=== PATIENT | female | born 1940 | race Caucasian/White ===

== ENCOUNTER 2019-01-28 07:02 | Inpatient (IN) | payer MEDICARE, BC ==
--- NOTE | 2019-01-28 07:57 | ED ---
General Adult HPI - General Chief complaint: Back Pain/Injury Stated complaint: Back injury Time Seen by Provider: 01/28/19 07:08 Source: patient, EMS, RN notes reviewed, old records reviewed (Reviewed report from [facility] including progress note and radiology results and lab results.) Mode of arrival: EMS Limitations: no limitations - History of Present Illness Initial comments: Patient is a pleasant 70-year-old female presenting to the emergency department as a transfer from [facility]. Patient states she did have a fall l ast night. Patient landed on her back. Patient denies any head injury. Patient denies syncope or loss of consciousness. Patient complains of continued lower back discomfort. Patient states it is not as bad as was previously. Patient states earlier she was unable to get up on her own. Patient denies any incontinence or retention of bowel or bladder. Patient denies any leg weakness. Patient denies any area of injury other than her back. Patient states she does not feel short of breath. Review of reports from [facility] did have some concern for CHF on chest x-ray as well as BNP elevated. - Related Data Home Medications Medication Instructions Recorded Confirmed ALPRAZolam [Xanax] 0.5 mg PO DAILY PRN 06/28/17 01/28/19 Amiodarone [Cordarone] 100 mg PO MOWEFR 06/28/17 01/28/19 Ondansetron HCl [Zofran] 8 mg PO Q8HR PRN 06/28/17 01/28/19 Potassium Chloride [K-Tab ER] 10 meq PO BID 06/28/17 01/28/19 Spironolactone [Aldactone] 12.5 mg PO DAILY 06/28/17 01/28/19 Sertraline HCl [Zoloft] 100 mg PO HS 06/29/17 01/28/19 Sildenafil Citrate [Sildenafil] 20 mg PO BID 06/29/17 01/28/19 Allopurinol [Zyloprim] 100 mg PO DAILY 01/28/19 01/28/19 Atenolol [Tenormin] 50 mg PO DAILY 01/28/19 01/28/19 Folic Acid 1 mg PO DAILY 01/28/19 01/28/19 Previous Rx's Medication Instructions Recorded Furosemide [Lasix] 40 mg PO DAILY #0 06/30/17 Allergies Allergy/AdvReac Type Severity Reaction Status Date / Time Iodinated Contrast- Oral and Allergy Severe Anaphylaxis Verified 01/28/19 08:15 IV Dye Review of Systems ROS Statement: Those systems with pertinent positive or pertinent negative responses have been documented in the HPI. ROS Other: All systems not noted in ROS Statement are negative. Constitutional: Denies: fever Eyes: Denies: eye pain ENT: Denies: ear pain Respiratory: Denies: cough Cardiovascular: Denies: chest pain Endocrine: Denies: fatigue Gastrointestinal: Denies: abdominal pain Genitourinary: Denies: dysuria Musculoskeletal: Reports: as per HPI, back pain Skin: Denies: rash Neurological: Denies: headache, weakness Past Medical History Past Medical History: Atrial Fibrillation, Heart Failure, Deep Vein Thrombosis (DVT), GERD/Reflux, Hypertension, Osteoarthritis (OA), Syncope Additional Past Medical History / Comment(s): ANEMIA,BLOOD TRANSFUSIONS"CONTRACTED HEP C THRU TRANSFUSION-TX AND CURED". PAST CATARACTS.DEPRESSION MAINTAINED BY MEDS.[place], THALLASEMIA, PUL HYPERTENSION, CONSTIPATED X4 DAYS "TOOK 4 STOOL SOFTENERS AND SUPPOSITORY TODAY AND ONLY WENT A SCANT AMT", DIVERTICULTITS. DOG BITE MONTH AGO(PT'S OWN DOG" WAS ON ABX. History of Any Multi-Drug Resistant Organisms: None Reported Past Surgical History: Cholecystectomy, Hysterectomy Additional Past Surgical History / Comment(s): SPLENECTOMY, VARICOSE VEIN SX TAWANNA LEGS, TAWANNA KNEE REPLACMENTS, CATARACTS Past Anesthesia/Blood Transfusion Reactions: Previous Problems w/ Anesthesia Additional Past Anesthesia/Blood Transfusion Reaction / Comment(s): AGE 26 RECEIVED TO MUCH AND IT TOOK LONGER TO WAKE UP. SEVERAL BLOOD TRANSFUSIONS IN PAST. Past Psychological History: Depression Smoking Status: Never smoker - Past Family History Mother Family Medical History: Cancer Additional Family Medical History / Comment(s): COLON CANCER Father Additional Family Medical History / Comment(s): IN MVA(ALCOHOL RELATED) General Exam Limitations: no limitations General appearance: alert, in no apparent distress Head exam: Present: atraumatic Eye exam: Present: normal appearance, PERRL ENT exam: Present: normal oropharynx Neck exam: Present: normal inspection Respiratory exam: Present: normal lung sounds bilaterally Cardiovascular Exam: Present: irregular rhythm Expanded Peripheral pulses: 2+: Dorsalis Pedis (R), Dorsalis Pedis (L) GI/Abdominal exam: Present: soft. Absent: tenderness Extremities exam: Present: normal inspection Back exam: Present: normal inspection. Absent: tenderness, vertebral tenderness Neurological exam: Present: alert, CN II-XII intact. Absent: motor sensory deficit Expanded Motor strength exam: RUE: 5, LUE: 5, RLE: 5, LLE: 5 Eye Response: (4) open spontaneously Motor Response: (6) obeys commands Verbal Response: (5) oriented Psychiatric exam: Present: normal affect, normal mood Skin exam: Present: normal color Course Vital Signs 01/28/19 01/28/19 07:03 08:04 Temperature 97.7 F Pulse Rate 89 76 Respiratory 16 16 Rate Blood Pressure 109/62 119/70 O2 Sat by Pulse 94 L 96 Oximetry Medical Decision Making - Medical Decision Making Case was discussed with Dr. Calloway covering with orthopedics. He is read CT report including concern for T12 compression fracture as well as mild paravertebral hemorrhage. He states patient can be admitted here and to place a consult and for Dr. Cordova. Patient is updated regarding plan. Dr. Overton has been paged for admission for Dr. Calles. Disposition Clinical Impression: T12 compression fracture, CHF (congestive heart failure) Disposition: ADMITTED IP TO THIS HOSP Is patient prescribed a controlled substance at d/c from ED?: No Referrals: Donovan Calles MD [Primary Care Provider] - 1-2 days Decision Time: 08:25
[2019-01-28] MEDS ORDERED: FUROSEMIDE 10 MG/ML 4 ML VIAL IV SCH (09:00)
[2019-01-28] MEDS: MORPHINE SULFATE 4 MG/ML SYRINGE IVP PRN (12:43)
[2019-01-28] MEDS: NITROGLYCERIN OINT 1 INCH/GM PACKET TOPICAL SCH ×2 (12:47)
--- NOTE | 2019-01-28 12:51 | P.CNOR ---
History of Present Illness - [facility] Consult date: 01/28/19 Requesting physician: Lobito Valencia Consult reason: fracture (T6 and T12 compression fracture deformities), low back pain, back pain (Thoracic back pain), other (Status post fall) History of present illness: Patient very pleasant 78-year-old female who is seen and examined at the bedside for further evaluation for thoracic back pain. Patient sustained a fall yesterday landing on her buttocks. Since that time she has been experiencing mid and lower thoracic pain and also lower lumbar pain. She was seen at [facility]. CT imaging of her thoracic spine and pelvis was taken at that time. She did not have any imaging specifically for her lumbar spine. At the bedside she is resting comfortably. She has has increased back pain with any movements of her spine. She denies any pain at the hips or bilateral lower extremities. She denies a lower extremity radiculopathy. She does feel more unsteady on her feet lately but is unsure why. She denies having any previous fractures of her spine. Following reviewing of imaging at [place], she was transferred to [facility] for further evaluation. Patient states she lives at home with her and is planning to be discharged home at the time of discharge. She has a past medical history which includes atrial fibrillation, heart failure, hypertension, syncope and DVT. Past Medical History Past Medical History: Atrial Fibrillation, Heart Failure, Deep Vein Thrombosis (DVT), GERD/Reflux, Hypertension, Osteoarthritis (OA), Syncope Additional Past Medical History / Comment(s): ANEMIA,BLOOD TRANSFUSIONS"CONTRACTED HEP C THRU TRANSFUSION-TX AND CURED". PAST CATARACTS.DEPRESSION MAINTAINED BY MEDS.PILOT STATION, THALLASEMIA, PUL HYPERTENSION, CONSTIPATED X4 DAYS "TOOK 4 STOOL SOFTENERS AND SUPPOSITORY TODAY AND ONLY WENT A SCANT AMT", DIVERTICULTITS. DOG BITE MONTH AGO(PT'S OWN DOG" WAS ON ABX. History of Any Multi-Drug Resistant Organisms: None Reported Past Surgical History: Cholecystectomy, Hysterectomy Additional Past Surgical History / Comment(s): SPLENECTOMY, VARICOSE VEIN SX TAWANNA LEGS, TAWANNA KNEE REPLACMENTS, CATARACTS Past Anesthesia/Blood Transfusion Reactions: Previous Problems w/ Anesthesia Additional Past Anesthesia/Blood Transfusion Reaction / Comm: AGE 26 RECEIVED TO MUCH AND IT TOOK LONGER TO WAKE UP. SEVERAL BLOOD TRANSFUSIONS IN PAST. Past Psychological History: Depression Smoking Status: Never smoker - Past Family History Mother Family Medical History: Cancer Additional Family Medical History / Comment(s): COLON CANCER Father Additional Family Medical History / Comment(s): IN MVA(ALCOHOL RELATED) Medications and Allergies Home Medications Medication Instructions Recorded Confirmed Type ALPRAZolam [Xanax] 0.5 mg PO DAILY PRN 06/28/17 01/28/19 History Amiodarone [Cordarone] 100 mg PO MOWEFR 06/28/17 01/28/19 History Ondansetron HCl [Zofran] 8 mg PO Q8HR PRN 06/28/17 01/28/19 History Potassium Chloride [K-Tab ER] 10 meq PO BID 06/28/17 01/28/19 History Spironolactone [Aldactone] 12.5 mg PO DAILY 06/28/17 01/28/19 History Sertraline HCl [Zoloft] 100 mg PO HS 06/29/17 01/28/19 History Sildenafil Citrate [Sildenafil] 20 mg PO BID 06/29/17 01/28/19 History Furosemide [Lasix] 40 mg PO DAILY #0 06/30/17 01/28/19 Rx Allopurinol [Zyloprim] 100 mg PO DAILY 01/28/19 01/28/19 History Atenolol [Tenormin] 50 mg PO DAILY 01/28/19 01/28/19 History Folic Acid 1 mg PO DAILY 01/28/19 01/28/19 History Allergies Allergy/AdvReac Type Severity Reaction Status Date / Time Iodinated Contrast- Oral and Allergy Severe Anaphylaxis Verified 01/28/19 08:15 IV Dye Physical Examination Physical exam: Patient is awake, alert, and oriented 3 Vital signs stable Good chest excursion with deep inspiration and expiration Examination of thoracic and lumbar spine reveals skin is intact with no abrasions, lacerations, or bruises; no erythema, purulence or signs of infection Pain with palpation along the midline of the mid upper thoracic spine, lower thoracic spine, and lower lumbar spine Dorsiflexion, plantarflexion, and extensor hallucis longus positive sustained bilaterally Lower extremity strength positive sustained throughout range of motion but generally weaker Patellar reflex 1+ bilaterally No lower extremity hyperreflexia bilaterally Straight leg test negative bilateral lower extremities No signs or symptoms of DVT; no calf pain No pain with internal and external rotation of the hips bilaterally Neurovascularly intact Results Pertinent studies: CT of the thoracic spine taken outside facility at [facility] which imaging is available but I was unable to see documentation: T6 superior endplate compression fracture deformity of approximately 5% to 10% height loss; T12 inferior endplate compression fracture deformity with approximately 15% to 20% height loss with evidence of fracture line through the anterior half of the vertebral body; overall alignment appears to be adequately maintained CT of the pelvis taken at an outside facility at [facility] in which imaging is available but I was unable to see documentation: No obvious sign of fracture or dislocation within the pelvis; osteoarthritis of bilateral hip joint spaces; sacroiliac joint space. His be adequately maintained; L4-5 and L5-S1 degenerative disc disease Assessment and Plan Assessment: Assessment: Acute thoracic and lumbar back pain Acute traumatic T6 and T12 compression fracture deformities Status post fall L4-5 and L5-S1 degenerative disc disease Osteoarthritic bilateral hip joint spacing Unsteadiness in gait History of atrial fibrillation, heart failure, hypertension, syncope and DVT (1) Traumatic compression fracture of T6 vertebra Current Visit: Yes Status: Acute Code(s): S22.050A - WEDGE COMPRESSION FRACTURE OF T5-T6 VERTEBRA, INIT SNOMED Code(s): 686769343 (2) Traumatic compression fracture of T12 thoracic vertebra Current Visit: Yes Status: Acute Code(s): S22.080A - WEDGE COMPRESSION FRACTURE OF T11-T12 VERTEBRA, INIT SNOMED Code(s): 254114193 (3) Thoracic back pain Current Visit: Yes Status: Acute Code(s): M54.6 - PAIN IN THORACIC SPINE SNOMED Code(s): 535262872 (4) Lumbar pain Current Visit: Yes Status: Acute Code(s): M54.5 - LOW BACK PAIN SNOMED Code(s): 184995733 (5) DJD (degenerative joint disease), lumbosacral Current Visit: Yes Status: Acute Code(s): M51.37 - OTHER INTERVERTEBRAL DISC DEGENERATION, LUMBOSACRAL REGION SNOMED Code(s): 35023702 (6) Lumbar degenerative disc disease Current Visit: Yes Status: Acute Code(s): M51.36 - OTHER INTERVERTEBRAL DISC DEGENERATION, LUMBAR REGION SNOMED Code(s): 24440417 (7) Osteoarthritis of hips, bilateral Current Visit: Yes Status: Acute Code(s): M16.0 - BILATERAL PRIMARY OSTEOARTHRITIS OF HIP SNOMED Code(s): 348098394030920 (8) History of atrial fibrillation Current Visit: Yes Status: Acute Code(s): Z86.79 - PERSONAL HISTORY OF OTHER DISEASES OF THE CIRCULATORY SYSTEM SNOMED Code(s): 869065943 (9) History of hypertension Current Visit: Yes Status: Acute Code(s): Z86.79 - PERSONAL HISTORY OF OTHER DISEASES OF THE CIRCULATORY SYSTEM SNOMED Code(s): 599867911 (10) History of syncope Current Visit: Yes Status: Acute Code(s): Z87.898 - PERSONAL HISTORY OF OTHER SPECIFIED CONDITIONS SNOMED Code(s): 242129728715613 (11) History of DVT (deep vein thrombosis) Current Visit: Yes Status: Acute Code(s): Z86.718 - PERSONAL HISTORY OF OTHER VENOUS THROMBOSIS AND EMBOLISM SNOMED Code(s): 031018635 (12) CHF (congestive heart failure) Current Visit: Yes Status: Acute Code(s): I50.9 - HEART FAILURE, UNSPECIFIED SNOMED Code(s): 23448845 Plan: Plan: 1. After reviewing of imaging, physical examination the patient, and further discussion with the patient, will currently planned to continue with conservative treatment at this time. At this time we'll plan for bracing. A prescription has been written and provided to case management for a Spinomed TLSO brace for her compression fracture deformities at T6 and T12. Once this brace is delivered and fitted appropriately, patient should wear this brace while sitting upright at greater than 45, during increase activities, during ambulation. Brace does not have to or while lying in bed or while bathing. Following fitting of this brace, patient is clear for discharge from an orthopedic spine standpoint. Following discharge, patient may follow-up with Ezekiel Dorantes PA-C or Dr. Gabriel Cordova at [facility]. We will also plan to obtain x-rays of the lumbosacral spine for her acute low back pain status post fall. We discussed if she does have evidence of an acute compression fracture deformity at her lumbar spine the prescribed Spinomed TLSO brace will cover this fracture as well as her currently diagnosed T6 and T12 fractures. We will follow up following her lumbar x-rays discuss her imaging results. 2. Continue pain control with medication as prescribed; patient has not been prescribed any oral medications. We'll plan to add tramadol 50 mg 1-2 tabs every 6 hours as needed for pain. 3. Patient will continue to be seen by medicine for her other medical diagnoses 4. Patient currently waiting for consultation with cardiology 5. Patient will be discussed in detail with Dr. Gabriel Cordova Time with Patient: Greater than 30 (Including obtaining history, physical examination, reviewing of imaging, and dictation.)
[2019-01-28] MEDS ORDERED: ACETAMINOPHEN TAB 325 MG TAB PO PRN (13:24)
[2019-01-28] MEDS ORDERED: SODIUM CHLORIDE 0.9% 1,000 ML IV SCH (13:30)
--- NOTE | 2019-01-28 14:39 | XR ---
EXAMINATION TYPE: XR chest 1V DATE OF EXAM: 01/28/2019 COMPARISON: 06/29/2017 INDICATION: CHF TECHNIQUE: Single frontal view of the chest is obtained. FINDINGS: The heart size is markedly enlarged. The pulmonary vasculature is prominent. Diffuse alveolar infiltrate is present IMPRESSION: 1. Findings are compatible with congestive heart failure in the proper clinical setting.
--- NOTE | 2019-01-28 14:41 | XR ---
EXAMINATION TYPE: XR lumbar spine 2 or 3V DATE OF EXAM: 01/28/2019 COMPARISON: None HISTORY: Fall, pain TECHNIQUE: Three-view lumbar spine FINDINGS: There is a scoliosis present with a convexity to the right. There 5 lumbar-type vertebral b odies. The pedicles are intact. There is loss of disc height L5-S1 with vacuum disc phenomenon. Disc space narrowing is present L4-5, L3-4 and posteriorly at L1-2 and T12-L1. Vertebral body heights are preserved. Alignment is otherwise unremarkable. IMPRESSION: 1. No acute posttraumatic changes. 2. Degenerative disc changes. 3. Scoliosis.
--- NOTE | 2019-01-28 14:59 | P.HPIM ---
History of Present Illness 70-year-old female female came in from [facility] patient had a fall appears to be mechanical fall. Patient the is found to be in heart failure exacerbation because of which patient was transferred here patient is a poor historian and unable to provide much history to me although patient denied any sick increased shortness of breath orthopnea paroxysmal nocturnal dyspnea patient does have a pulmonary edema on the chest x-ray minimal to appreciate JVD. Patient does have elevated BNP of 3000. Patient has a T12 fracture. Patient although clinically appears to have new dry mucous membranes hypotensive because of which I'm not starting her on Lasix and monitor her closely here today. If she desaturates patient was started on Lasix. Patient does have chronic diastolic dysfunction moderate pulmonary hypertension multivalve heart disease disease including moderate mitral regurgitation and mitral stenosis. Patient's baseline creatinine around 0.9 now around 1.7. Patient does have history of atrial fibrillation not on any anticoagulation because of her multiple episodes of GI bleeds in the past. Review of Systems Review of systems as mentioned above rest of the review of systems are negative Past Medical History Past Medical History: Atrial Fibrillation, Heart Failure, Deep Vein Thrombosis (DVT), GERD/Reflux, Hypertension, Osteoarthritis (OA), Syncope Additional Past Medical History / Comment(s): ANEMIA,BLOOD TRANSFUSIONS"CONTRACTED HEP C THRU TRANSFUSION-TX AND CURED". PAST CATARACTS.DEPRESSION MAINTAINED BY MEDS.STEBBINS, THALLASEMIA, PUL HYPERTENSION, CONSTIPATED X4 DAYS "TOOK 4 STOOL SOFTENERS AND SUPPOSITORY TODAY AND ONLY WENT A SCANT AMT", DIVERTICULTITS. DOG BITE MONTH AGO(PT'S OWN DOG" WAS ON ABX. History of Any Multi-Drug Resistant Organisms: None Reported Past Surgical History: Cholecystectomy, Hysterectomy Additional Past Surgical History / Comment(s): SPLENECTOMY, VARICOSE VEIN SX TAWANNA LEGS, TAWANNA KNEE REPLACMENTS, CATARACTS Past Anesthesia/Blood Transfusion Reactions: Previous Problems w/ Anesthesia Additional Past Anesthesia/Blood Transfusion Reaction / Comment(s): AGE 26 RECEIVED TO MUCH AND IT TOOK LONGER TO WAKE UP. SEVERAL BLOOD TRANSFUSIONS IN PAST. Past Psychological History: Depression Smoking Status: Never smoker - Past Family History Mother Family Medical History: Cancer Additional Family Medical History / Comment(s): COLON CANCER Father Additional Family Medical History / Comment(s): IN MVA(ALCOHOL RELATED) Medications and Allergies Home Medications Medication Instructions Recorded Confirmed Type ALPRAZolam [Xanax] 0.5 mg PO DAILY PRN 06/28/17 01/28/19 History Amiodarone [Cordarone] 100 mg PO MOWEFR 06/28/17 01/28/19 History Ondansetron HCl [Zofran] 8 mg PO Q8HR PRN 06/28/17 01/28/19 History Potassium Chloride [K-Tab ER] 10 meq PO BID 06/28/17 01/28/19 History Spironolactone [Aldactone] 12.5 mg PO DAILY 06/28/17 01/28/19 History Sertraline HCl [Zoloft] 100 mg PO HS 06/29/17 01/28/19 History Sildenafil Citrate [Sildenafil] 20 mg PO BID 06/29/17 01/28/19 History Furosemide [Lasix] 40 mg PO DAILY #0 06/30/17 01/28/19 Rx Allopurinol [Zyloprim] 100 mg PO DAILY 01/28/19 01/28/19 History Atenolol [Tenormin] 50 mg PO DAILY 01/28/19 01/28/19 History Folic Acid 1 mg PO DAILY 01/28/19 01/28/19 History Allergies Allergy/AdvReac Type Severity Reaction Status Date / Time Iodinated Contrast- Oral and Allergy Severe Anaphylaxis Verified 01/28/19 08:15 IV Dye Physical Exam Vitals: Vital Signs Temp Pulse Pulse Resp BP BP Pulse Ox 01/28/19 11:00 97.5 F L 88 18 103/54 95 01/28/19 08:49 97.9 F 89 18 100/59 95 01/28/19 08:04 76 16 119/70 96 01/28/19 07:03 97.7 F 89 16 109/62 94 L Intake and Output 01/27/19 01/28/19 01/28/19 22:59 06:59 14:59 Intake Total 250 Output Total 100 Balance 150 Intake: Oral 250 Output: Urine 100 Uretheral (Carver) 100 Other: Weight 76.975 kg PHYSICAL EXAMINATION: GENERAL: The patient is alert and oriented x3, not in any acute distress. Elderly female HEENT: Pupils are round and equally reacting to light. EOMI. No scleral icterus. No conjunctival pallor. Normocephalic, atraumatic. No pharyngeal erythema. No thyromegaly. CARDIOVASCULAR: S1 and S2 present. No murmurs, rubs, or gallops. PULMONARY: Bibasilar crackles are appreciated ABDOMEN: Soft, nontender, nondistended, normoactive bowel sounds. No palpable organomegaly. MUSCULOSKELETAL: No joint swelling or deformity. EXTREMITIES: No cyanosis, clubbing, mild pitting pedal edema NEUROLOGICAL: Gross neurological examination did not reveal any focal deficits. SKIN: No rashes. Thrombosis Risk Factor Assmnt - Choose All That Apply Any of the Below Risk Factors Present?: Yes Each Factor Represents 1 point: Abnormal pulmonary function (COPD) Each Risk Factor Represents 3 Points: Age 75 years or older Thrombosis Risk Factor Assessment Total Risk Factor Score: 4 Thrombosis Risk Factor Assessment Level: Moderate Risk Assessment and Plan Plan: -Mechanical fall and a T12 compression fracture TLSO brace along with the physical therapy occupational therapy discharged to subacute rehabilitation -Congestive heart failure chronic diastolic dysfunction with acute exacerbation patient blood pressure is already low because of which patient will be started on gentle diuretic therapy IV. Atrial fibrillation: Presently rate controlled continue with the rate control medications patient is not on any anti-correlation because of her GI bleed in the past -Acute renal failure: Prerenal azotemia secondary to heart failure exacerbation patient will be started on low-dose of Lasix and the creatinine is expected to improve with IV Lasix. -Gastroesophageal reflux disease -Osteoarthritis Patient will need pharmacologic GI and DVT prophylaxis
[2019-01-28 15:24] LABS: INR 1.1 (<1.2); Prothrombin Time 11.9 sec (9.0-12.0)
[2019-01-28] MEDS: traMADol 50 MG TAB PO PRN (21:06)
[2019-01-28] MEDS: SERTRALINE 100 MG TAB PO SCH (21:06)
[2019-01-28] MEDS: FAMOTIDINE 20 MG TAB PO SCH (21:07)
[2019-01-28] MEDS: HEPARIN SODIUM,PORCINE 5,000 UNIT/ML 1 ML VIAL SQ SCH (21:07)
[2019-01-28] MEDS: METOPROLOL TARTRATE 50 MG TAB PO SCH (21:07)
[2019-01-28] MEDS: FUROSEMIDE 10 MG/ML 2 ML VIAL IV SCH (21:07)
[2019-01-29] MEDS: MORPHINE SULFATE 4 MG/ML SYRINGE IVP PRN (03:23)
[2019-01-29 07:53] LABS: Anisocytosis Moderate; HCT 37.8 % (34.0-46.0); HGB 10.8 gm/dL (11.4-16.0); Hypochromasia Marked; MCH 21.9 pg (25.0-35.0); MCHC 28.6 g/dL (31.0-37.0); MCV 76.6 fL (80.0-100.0); Mean Platelet Volume 7.4; Microcytosis Moderate; Platelet Count 143 k/uL (150-450); Poikilocytosis Moderate; RBC 4.94 m/uL (3.80-5.40)
[2019-01-29] MEDS: HEPARIN SODIUM,PORCINE 5,000 UNIT/ML 1 ML VIAL SQ SCH ×2 (08:01→20:00)
[2019-01-29] MEDS: METOPROLOL TARTRATE 50 MG TAB PO SCH ×2 (08:02→22:16)
[2019-01-29] MEDS: AMIODARONE 100 MG TAB PO SCH (08:02)
[2019-01-29] MEDS: FAMOTIDINE 20 MG TAB PO SCH ×2 (08:02→20:00)
[2019-01-29] MEDS: ALLOPURINOL 100 MG TAB PO SCH (08:02)
[2019-01-29 08:06] LABS: Calcium 9.6 mg/dL (8.4-10.2); Potassium 4.4 mmol/L (3.5-5.1)
[2019-01-29] MEDS ORDERED: FUROSEMIDE 10 MG/ML 2 ML VIAL IV ONE (08:30)
--- NOTE | 2019-01-29 09:42 | P.PN ---
Progress Note - Text Progress Note Date: 01/29/19 Patient very pleasant 78-year-old female who is seen and examined at the bedside for follow-up evaluation for thoracic back pain. Patient sustained a fall Tuesday landing on her buttocks. Since that time she has been experiencing mid and lower thoracic pain and also lower lumbar pain. She was seen at [facility]. CT imaging of her thoracic spine and pelvis was taken at that time. She did not have any imaging specifically for her lumbar spine. X-rays the lumbar spine were ordered yesterday. At the bedside she is resting comfortably. She has has increased back pain with any movements of her spine. She denies any pain at the hips or bilateral lower extremities. She denies a lower extremity radiculopathy. She does feel more unsteady on her feet lately but is unsure why. She denies having any previous fractures of her spine. Following reviewing of imaging at [place], she was transferred to [facility] for further evaluation. After reviewing of imaging yesterday, patient was found to have compression fracture deformities at T6 and T12. He prescription was written for a Spinomed TLSO brace. This brace has been delivered and fitted properly. Patient states this brace has helped improved her thoracic back pain. Nursing states patient has had some increased confusion and in his contacting medicine for further evaluation. Patient is answering some questions appropriately the bedside but does have some confusion as to what happened to her at home leading to her admittance here in the hospital. Nursing states patient is planned for discharge to a rehabilitation facility. Patient states she lives at home with her and is planning to be discharged home at the time of discharge. She has a past medical history which includes atrial fibrillation, heart failure, hypertension, syncope and DVT. Physical exam: Patient is awake, alert, and oriented but does have some confusion with some questions but answers all the questions appropriately Vital signs stable Good chest excursion with deep inspiration and expiration Examination of thoracic and lumbar spine reveals skin is intact with no abrasions, lacerations, or bruises; no erythema, purulence or signs of infection No significant pain today with palpation along the midline of the mid upper thoracic spine, lower thoracic spine, and lower lumbar spine Dorsiflexion, plantarflexion, and extensor hallucis longus positive sustained b ilaterally Lower extremity strength positive sustained throughout range of motion but generally weaker Patellar reflex 1+ bilaterally No lower extremity hyperreflexia bilaterally Straight leg test negative bilateral lower extremities No signs or symptoms of DVT; no calf pain No pain with internal and external rotation of the hips bilaterally Neurovascularly intact Pertinent studies: X-rays of the lumbar spine taken on 01/28/2019: L2-3 degenerative disc disease with posterior osteophytic spurring in the left lateral osteophytic spurring; L3-4 asymmetric degenerative disc disease; L4-5 severe degenerative disc disease with right lateral osteophytic spurring; L5-S1 severe degenerative disc disease; no evidence of spondylolisthesis; no evidence of acute fracture; there may be some endplate change of the superior endplate of L2 and L3 CT of the thoracic spine taken outside facility at [facility] which imaging is available but I was unable to see documentation: T6 superior endplate compression fracture deformity of approximately 5% to 10% height loss; T12 inferior endplate compression fracture deformity with approximately 15% to 20% height loss with evidence of fracture line through the anterior half of the vertebral body; overall alignment appears to be adequately maintained CT of the pelvis taken at an outside facility at [facility] in which imaging is available but I was unable to see documentation: No obvious sign of fracture or dislocation within the pelvis; osteoarthritis of bilateral hip joint spaces; sacroiliac joint space. His be adequately maintained; L4-5 and L5-S1 degenerative disc disease Assessment: Acute thoracic and lumbar back pain Acute traumatic T6 and T12 compression fracture deformities Status post fall L2-3, L3-4, L4-5 and L5-S1 degenerative disc disease Lumbar osteophytic spurring Osteoarthritic bilateral hip joint spacing Unsteadiness in gait History of atrial fibrillation, heart failure, hypertension, syncope and DVT Plan: 1. After reviewing of imaging, physical examination the patient, and further discussion with the patient, we will currently plan to continue with conservative treatment as previous set fourth yesterday. Reviewing of lumbar imaging is not show evidence of obvious acute compression fracture deformity. Patient not currently experiencing significant low back pain today. Yesterday a prescription had been written and provided to case management for a Spinomed TLSO brace for her compression fracture deformities at T6 and T12. This brace has been delivered and fitted appropriately and the patient should wear this brace while sitting upright at greater than 45, during increase activities, during ambulation. Brace does not have to or while lying in bed or while bathing. Patient states her thoracic back pain has been better controlled with the brace intact. Following the fitting of this brace, patient is clear for discharge from an orthopedic spine standpoint. Following discharge, patient may follow-up with Ezekiel Dorantes PA-C or Dr. Gabriel Cordova at [facility]. 2. Continue pain control with medication as prescribed; patient has not been prescribed any oral medications; patient may continue with tramadol 50 mg 1-2 tabs every 6 hours as needed for pain. 3. Patient will continue to be seen by medicine for her other medical diagnoses 4. Patient currently waiting for consultation with cardiology 5. Patient will be discussed in detail with Dr. Gabriel Cordova
[2019-01-29] MEDS ORDERED: SODIUM CHLORIDE 0.9% 500 ML 500 ML IV ONE (12:52)
[2019-01-29] MEDS ORDERED: SODIUM CHLORIDE 0.9% 1,000 ML IV SCH (13:00)
[2019-01-29] MEDS: FUROSEMIDE 10 MG/ML 2 ML VIAL IV SCH (13:01)
--- NOTE | 2019-01-29 13:21 | XR ---
EXAMINATION TYPE: XR chest 1V DATE OF EXAM: 01/29/2019 COMPARISON: Prior chest x-ray 01/28/2019 HISTORY: Congestive heart failure TECHNIQUE: Single frontal view of the chest is obtained. FINDINGS: The heart is enlarged. Interstitium and pulmonary vascularity are prominent. No pneumothor ax. No sizable effusion. There are overlying cardiac leads. The aorta is dense. IMPRESSION: Findings suggest congestive heart failure, correlate. Follow-up recommended.
[2019-01-29 13:22] LABS: ABG Base Excess 4.1 mmol/L; ABG HCO3 30 mmol/L (21-25); ABG Oxygen Saturation 92.2 % (94-97); ABG PCO2 55 mmHg (35-45); ABG PH 7.34 (7.35-7.45); ABG PO2 63 mmHg (83-108); ABG TCO2 32 mmol/L (19-24)
--- NOTE | 2019-01-29 15:02 | P.PN ---
Subjective 70-year-old female admitted after a mechanical fall also found to have pulmonary edema unfortunately blood pressure is extremely low to do her Lasix today morning she went received IV fluids repeat chest x-ray showing worsening pulmonary edema patient does have elevated JVD patient creatinine did improve with Lasix from 1.7-1.4 patient does have moderate pulmonary hypertension. Baseline creatinine 0.9. Patient although clinically looks better than yesterday Constitutional: Denied any fatigue denied any fever. Cardio vascular: denied any chest pain, palpitations Gastrointestinal denied any nausea vomiting Pulmonary: Shortness of breath did improve compared to yesterday Neurologic denied any new focal deficits All inpatient medications were reviewed and appropriate changes in these medications as dictated in the interval history and assessment and plan. Objective - Vital Signs Vital signs: Vital Signs Temp 97.8 F 01/29/19 11:50 Pulse 87 01/29/19 13:59 Resp 20 01/29/19 13:59 BP 96/55 01/29/19 13:59 Pulse Ox 91 L 01/29/19 13:59 Intake & Output 01/28/19 01/29/19 01/29/19 18:59 06:59 18:59 Intake Total 350 100 200 Output Total 100 850 Balance 250 -750 200 Weight 76.975 kg Intake: Oral 350 100 200 Output: Urine 100 850 Uretheral (Carver) 100 850 Other: Voiding Method Indwelling Catheter Indwelling Catheter Indwelling Catheter - Exam PHYSICAL EXAMINATION: GENERAL: The patient is alert and oriented x3, not in any acute distress. Elderly female HEENT: Pupils are round and equally reacting to light. EOMI. No scleral icterus. No conjunctival pallor. Normocephalic, atraumatic. No pharyngeal erythema. No thyromegaly. CARDIOVASCULAR: S1 and S2 present. No murmurs, rubs, or gallops. Patient does have elevated JVD PULMONARY: Bibasilar crackles are appreciated diffuse ABDOMEN: Soft, nontender, nondistended, normoactive bowel sounds. No palpable or ganomegaly. MUSCULOSKELETAL: No joint swelling or deformity. EXTREMITIES: No cyanosis, clubbing, mild pitting pedal edema NEUROLOGICAL: Gross neurological examination did not reveal any focal deficits. SKIN: No rashes. - Labs CBC & Chem 7: 01/29/19 06:54 01/29/19 06:54 Labs: Abnormal Lab Results - Last 24 Hours (Table) 01/29/19 01/29/19 01/29/19 Range/Units 06:54 06:54 13:10 WBC 17.8 H (3.8-10.6) k/uL Hgb 10.8 L (11.4-16.0) gm/dL MCV 76.6 L (80.0-100.0) fL MCH 21.9 L (25.0-35.0) pg MCHC 28.6 L (31.0-37.0) g/dL RDW 22.0 H (11.5-15.5) % Plt Count 143 L (150-450) k/uL ABG pH 7.34 L (7.35-7.45) ABG pCO2 55 H (35-45) mmHg ABG pO2 63 L (83-108) mmHg ABG HCO3 30 H (21-25) mmol/L ABG Total CO2 32 H (19-24) mmol/L ABG O2 Saturation 92.2 L (94-97) % Carbon Dioxide 31 H (22-30) mmol/L BUN 48 H (7-17) mg/dL Creatinine 1.53 H (0.52-1.04) mg/dL Glucose 109 H (74-99) mg/dL Assessment and Plan Plan: -Mechanical fall and a T12 compression fracture TLSO brace along with the physical therapy occupational therapy discharged to subacute rehabilitation -Congestive heart failure chronic diastolic dysfunction with acute exacerbation patient blood pressure is already low because of which patient will be started on gentle diuretic therapy IV. Patient received IV fluids today because of extremely low blood pressure patient was closely monitored for gentle diuresis probably entered from transferred to intensive care unit. Discussed with cashier checker who will evaluated the patient and decide on transfer Atrial fibrillation: Presently rate controlled continue with the rate control medications patient is not on any anti-correlation because of her GI bleed in the past -Acute renal failure: Prerenal azotemia secondary to heart failure exacerbation patient will be started on low-dose of Lasix creatinine did improve compared to yesterday with IV Lasix -Gastroesophageal reflux disease -Osteoarthritis Patient will need pharmacologic GI and DVT prophylaxis
[2019-01-29] MEDS: FUROSEMIDE 10 MG/ML 4 ML VIAL IV SCH (16:05)
--- NOTE | 2019-01-29 16:11 | P.CNPUL ---
History of Present Illness Consult date: 01/29/19 Reason for consult: dyspnea History of present illness: A [age]-year-old female patient transferred from [place] after she had a fall. The patient sustained a fall the day prior to admission and she landed on her buttocks. She experienced some mid and lower thoracic pain and also pain in lower lumbar spine. CAT scan of the thoracic spine and the pelvis was taken and there is evidence of loss of disc height at the level of L5-S1, the narrowing at the level of L3-L4 and L4-L5 for which orthopedic surgery was consulted. She also has a T12 compression fracture She had increased lower back pain with movement of her spine. This patient lives with her and she has past medical history of congestion heart failure, atrial fibrillation, remote history of DVT, hypertension and osteoarthritis. The patient at a time of admission was quite sick and short of breath and she was having difficulty breathing with a component of CHF/pulmonary edema. BNP was 3000. The patient was also noted to be in acute kidney injury. Creatinine was at 1.5 from a normal baseline. Her chest x-ray was consistent with CHF and prominent interstitium. Based on her ongoing shortness of breath, the patient underwent a blood gas today that showed a pH of 7.34 with a pCO2 of 55 and pO2 of 63 and this was done on a FiO2 of 4 L of oxygen by nasal cannula. Based on this, a pulmonary consultation was requested. At this point in time, the patient is on tramadol for pain control, morphine for pain control, metoprolol and amiodarone regarding her previous history of atrial fibrillation. She has had a previous echocardiogram in 2017 that showed a normal EF around 55-60% in addition to moderate MR, moderate TR, moderate pulmonary hypertension with a PA pressure of 71 in addition to borderline concentric left ventricle hypertrophy. Review of Systems Constitutional: Denies chills, Denies fever Eyes: bilateral decreased vision, denies blurred vision, denies bulging eye Ears: bilateral: decreased hearing, deny: ear discharge, earache, tinnitus Ears, nose, mouth and throat: Reports as per HPI Cardiovascular: Reports decreased exercise tolerance, Reports shortness of breath Respiratory: Reports dyspnea Gastrointestinal: Denies abdominal pain, Denies diarrhea, Denies nausea, Denies vomiting Genitourinary: Reports as per HPI Menstruation: Reports as per HPI Musculoskeletal: Reports as per HPI (Back pain) Musculoskeletal: absent: ankle pain, ankle stiffness, ankle swelling Integumentary: Reports as per HPI Neurological: Reports as per HPI Psychiatric: Reports as per HPI Endocrine: Reports as per HPI Hematologic/Lymphatic: Reports as per HPI Allergic/Immunologic: Reports as per HPI Past Medical History Past Medical History: Atrial Fibrillation, Heart Failure, Deep Vein Thrombosis (DVT), GERD/Reflux, Hypertension, Osteoarthritis (OA), Syncope Additional Past Medical History / Comment(s): Chronic atrial fibrillation, congestion heart failure, remote history of DVT, hypertension, osteoarthritis, depression, cataracts, history of septicemia, secondary pulmonary hypertension with evidence of moderate degree of mitral regurgitation based on the previous echocardiogram had also noted a PA pressure of 51, diverticulosis, chronic anemia, hard of hearing History of Any Multi-Drug Resistant Organisms: None Reported Past Surgical History: Cholecystectomy, Hysterectomy Additional Past Surgical History / Comment(s): SPLENECTOMY, VARICOSE VEIN SX TAWANNA LEGS, TAWANNA KNEE REPLACMENTS, CATARACTS Past Anesthesia/Blood Transfusion Reactions: Previous Problems w/ Anesthesia Additional Past Anesthesia/Blood Transfusion Reaction / Comment(s): AGE 26 RECEIVED TO MUCH AND IT TOOK LONGER TO WAKE UP. SEVERAL BLOOD TRANSFUSIONS IN PAST. Past Psychological History: Depression Smoking Status: Never smoker - Past Family History Mother Family Medical History: Cancer Additional Family Medical History / Comment(s): COLON CANCER Father Additional Family Medical History / Comment(s): IN MVA(ALCOHOL RELATED) Medications and Allergies Home Medications Medication Instructions Recorded Confirmed Type ALPRAZolam [Xanax] 0.5 mg PO DAILY PRN 06/28/17 01/28/19 History Amiodarone [Cordarone] 100 mg PO MOWEFR 06/28/17 01/28/19 History Ondansetron HCl [Zofran] 8 mg PO Q8HR PRN 06/28/17 01/28/19 History Potassium Chloride [K-Tab ER] 10 meq PO BID 06/28/17 01/28/19 History Spironolactone [Aldactone] 12.5 mg PO DAILY 06/28/17 01/28/19 History Sertraline HCl [Zoloft] 100 mg PO HS 06/29/17 01/28/19 History Sildenafil Citrate [Sildenafil] 20 mg PO BID 06/29/17 01/28/19 History Furosemide [Lasix] 40 mg PO DAILY #0 06/30/17 01/28/19 Rx Allopurinol [Zyloprim] 100 mg PO DAILY 01/28/19 01/28/19 History Atenolol [Tenormin] 50 mg PO DAILY 01/28/19 01/28/19 History Folic Acid 1 mg PO DAILY 01/28/19 01/28/19 History Allergies Allergy/AdvReac Type Severity Reaction Status Date / Time Iodinated Contrast- Oral and Allergy Severe Anaphylaxis Verified 01/28/19 08:15 IV Dye Physical Exam Vitals: Vital Signs Temp Pulse Pulse Resp BP BP Pulse Ox 01/29/19 13:59 87 20 96/55 91 L 01/29/19 11:50 97.8 F 81 16 90/40 95 01/29/19 07:40 81 16 100/41 91 L 01/29/19 07:10 16 01/29/19 04:56 98.0 F 79 20 102/62 91 L 01/29/19 04:40 20 83 L 01/29/19 00:00 98.1 F 93 20 107/66 92 L 01/28/19 21:00 97.9 F 86 20 101/58 94 L 01/28/19 16:55 18 Intake and Output 01/29/19 01/29/19 01/29/19 06:59 14:59 22:59 Intake Total 100 200 Output Total 850 Balance -750 200 Intake: Oral 100 200 Output: Urine 850 Uretheral (Carver) 850 Other: Voiding Method Indwelling Catheter Indwelling Catheter GENERAL: The patient is alert and oriented x3, not in any acute distress. Elderly female Head exam was generally normal. There was no scleral icterus or corneal arcus. Mucous membranes were moist. HEENT: Pupils are round and equally reacting to light. EOMI. No scleral icterus. No conjunctival pallor. Normocephalic, atraumatic. No pharyngeal erythema. No thyromegaly. CARDIOVASCULAR: S1 and S2 present. No murmurs, rubs, or gallops. PULMONARY: Bibasilar crackles are appreciated ABDOMEN: Soft, nontender, nondistended, normoactive bowel sounds. No palpable organomegaly. MUSCULOSKELETAL: No joint swelling or deformity. EXTREMITIES: No cyanosis, clubbing, mild pitting pedal edema NEUROLOGICAL: Gross neurological examination did not reveal any focal deficits. SExamination of the skin revealed no evidence of significant rashes, suspicious appearing nevi or other concerning lesions. Results - Laboratory Findings CBC and BMP: 01/29/19 06:54 01/29/19 06:54 ABG ABG pH 7.34 (7.35-7.45) L 01/29/19 13:10 ABG pCO2 55 mmHg (35-45) H 01/29/19 13:10 ABG pO2 63 mmHg (83-108) L 01/29/19 13:10 ABG O2 Saturation 92.2 % (94-97) L 01/29/19 13:10 PT/INR, D-dimer PT 11.9 sec (9.0-12.0) 01/28/19 14:10 INR 1.1 (<1.2) 01/28/19 14:10 Abnormal lab findings: Abnormal Labs 01/29/19 01/29/19 01/29/19 06:54 06:54 13:10 WBC 17.8 H Hgb 10.8 L MCV 76.6 L MCH 21.9 L MCHC 28.6 L RDW 22.0 H Plt Count 143 L ABG pH 7.34 L ABG pCO2 55 H ABG pO2 63 L ABG HCO3 30 H ABG Total CO2 32 H ABG O2 Saturation 92.2 L Carbon Dioxide 31 H BUN 48 H Creatinine 1.53 H Glucose 109 H - Diagnostic Findings Chest x-ray: image reviewed Assessment and Plan Plan: 1 shortness of breath secondary to decompensated heart failure. Suspect underlying valvular heart disease as the patient is known to have moderate MR, moderate degree of pulmonary hypertension based on previous echocardiogram. LV function was preserved back in 2017. BNP level was elevated, admission and chest x-ray is consistent with CHF, and the heart probably decompensated further with her atrial fibrillation. 2 acute hypoxic respiratory failure 3 acute respiratory acidosis secondary to CHF 4 fall with compression fracture of the T12 spine 5 chronic atrial fibrillation, rate controlled on no anticoagulants for now. 6 remote history of DVT 7 hypertension 8 osteoarthritis 9 diverticulosis 10 history of thalassemia, and the patient has a microcytic anemia with a normal iron study 11 history of secondary pulmonary hypertension with a PA pressures estimated to be moderately severe based on echocardiogram from 2017 12 acute kidney injury with a creatinine of 1.53 Plan Repeat echocardiogram in a.m. Start the patient diuretics. The patient was started on Lasix 40 mg of push every 12 hours. Stop sildenafil for now which is probably contributing to her hypotension. Repeat chest x-ray today within next 24 hours. Monitor blood pressure. Contact me back if there is any worsening or any drop in her blood pressure. Monitor renal function. The patient is a Carver catheter in place. Anticipate improvement with diuresis.
[2019-01-29] MEDS: SERTRALINE 100 MG TAB PO SCH (20:00)
[2019-01-29] MEDS ORDERED: ONDANSETRON 4 MG/2 ML VIAL IVP STA (20:30)
[2019-01-30] MEDS: FUROSEMIDE 10 MG/ML 4 ML VIAL IV SCH ×2 (05:56→18:08)
[2019-01-30] MEDS: METOPROLOL TARTRATE 50 MG TAB PO SCH (08:50)
[2019-01-30] MEDS: ALLOPURINOL 100 MG TAB PO SCH (08:50)
[2019-01-30] MEDS: HEPARIN SODIUM,PORCINE 5,000 UNIT/ML 1 ML VIAL SQ SCH ×2 (08:50→21:01)
[2019-01-30] MEDS: FAMOTIDINE 20 MG TAB PO SCH (08:50)
--- NOTE | 2019-01-30 10:19 | P.CRDCN ---
History of Present Illness History of present illness: This is a pleasant 78-year-old female past medical history significant for paroxysmal atrial fibrillation, hypertension, pulmonary hypertension and chronic diastolic heart failure. She denies history of coronary artery disease or bypass surgery. She follows with Dr. Mcnally. We have been asked to see her in consultation secondary to heart failure. She presented to [facility] after suffering a fall resulting in acute traumatic T6 and T12 compression fracture deformities. She has been seen in consultation by orthopedic services and they are recommending conservative treatment at this time with pain management as well as a back brace. She was also noted to be quite short of breath. A chest xray obtained revealed prominent pulmonary vascular congestion and she was started on IV lasix. Repeat chest xray yesterday revealed similar findings. She is seen and examined sitting up in bed sleeping in no acute distress. She has a sitter at the bedside for safety purposes. With conversation she does appear mildly dyspneic. She denies chest pain, dizziness, palpitations, nausea, vomiting or diaphiresis. Aldactone and sildenafil have been discontinued since admission. EKG from [place] reveals atrial fibrillation with controlled ventricular response heart rate is 77. Laboratory data reviewed, WBC 17.8, hemoglobin 10.8, platelets 143, pH 7.34, pCO2 55, pO2 63 and bicarb 30, sodium 141, potassium 4.4, creatinine 1.53 with a GFR of 32 and NT proBNP 3000. Current cardiac medications include amiodarone 100 mg on Tuesday, Tuesday and Tuesday, atenolol 50 mg daily, Lasix 40 mg, sildenafil 20 mg twice a day and Aldactone 12.5 mg daily. Recent echocardiogram obtained in 2017 revealed preserved LV systolic function with ejection fraction 55-60%, moderate mitral regurgitation, moderate tricuspid regurgitation and moderate pulmonary hypertension with an RVSP of 51 mmHg. At the time of my exam: CONSTITUTIONAL: Denies fever. Denies chills. EYES: Denies blurred vision. Denies vision changes. Denies eye pain. EARS, NOSE, MOUTH & THROAT: Denies headache. Denies sore throat. Denies ear pain. CARDIOVASCULAR: Denies chest pain. Denies shortness of breath. Denies orthopnea. Denies PND. Denies palpitations. RESPIRATORY: Denies cough. GASTROINTESTINAL: Denies abdominal pain. Denies diarrhea. Denies constipation. Denies nausea. Denies vomiting. MUSCULOSKELETAL: Denies myalgias. INTEGUMENTARY: Denies pruitis. Denies rash. NEUROLOGIC: Denies numbness. Denies tingling. Denies weakness. PSYCHIATRIC: Denies anxiety. Denies depression. ENDOCRINE: Denies fatigue. Denies weight change. Denies polydipsia. Denies polyurina. GENITOURINARY: Denies burning, hematuria or urgency with micturation. HEMATOLOGIC: Denies history of anemia. Denies bleeding. Blood pressure 105/59 heart rate 91 afebrile maintaining oxygen saturation on nasal cannula GENERAL: This is a 78-year-old female in no apparent distress at the time of my examination. HEENT: Head is atraumatic, normocephalic. Pupils are equal, round. Sclerae anicteric. Conjunctivae are clear. Mucous membranes of the mouth are moist. Neck is supple. There is mild jugular venous distention. No carotid bruit is heard. LUNGS: Clear to auscultation no wheezes, rales or rhonchi. No chest wall tenderness is noted on palpation or with deep breathing. Diminished bilaterally. HEART: Irregular rate and rhythm with systolic ejection murmur at all listening points, no rubs or gallops. S1 and S2 heard. ABDOMEN: Soft, nontender. Bowel sounds are heard. No organomegaly noted. EXTREMITIES: No evidence of peripheral edema and no calf tenderness noted. VASCULAR: Radial and dorsalis pedis pulses palpated, no evidence of clubbing. NEUROLOGIC: Patient is awake, alert and oriented. ASSESSMENT Acute on chronic diastolic heart failure and cor pulmonale Acute T6 and T12 fracture Acute kidney injury Paroxysmal atrial fibrillation not on long-term anticoagulation Pulmonary hypertension Valvular heart disease, mitral regurgitation and tricuspid regurgitation Hypertension PLAN Obtain 2D echocardiogram and doppler study to assess cardiac structure and function. Check electrolytes and kidney function. Continue IV diuresis for another 24 hours. If kidney function improves, recommend resuming her aldactone. termite control service representative anti-coagulation should be considered, pt states her guide dog trainer has told her not to take. Possibly related to falls. Obtain recent echo report and office note from her primary guide dog trainer for review. She states she sees him every 2 months. We will continue to follow and make recommendations accordingly. Thank you kindly for this consultation. Nurse Practitioner note has been reviewed, I agree with a documented findings and plan of care. Patient was seen and examined. Past Medical History Past Medical History: Atrial Fibrillation, Heart Failure, Deep Vein Thrombosis (DVT), GERD/Reflux, Hypertension, Osteoarthritis (OA), Syncope Additional Past Medical History / Comment(s): Chronic atrial fibrillation, congestion heart failure, remote history of DVT, hypertension, osteoarthritis, depression, cataracts, history of septicemia, secondary pulmonary hypertension with evidence of moderate degree of mitral regurgitation based on the previous echocardiogram had also noted a PA pressure of 51, diverticulosis, chronic anemia, hard of hearing History of Any Multi-Drug Resistant Organisms: None Reported Past Surgical History: Cholecystectomy, Hysterectomy Additional Past Surgical History / Comment(s): SPLENECTOMY, VARICOSE VEIN SX TAWANNA LEGS, TAWANNA KNEE REPLACMENTS, CATARACTS Past Anesthesia/Blood Transfusion Reactions: Previous Problems w/ Anesthesia Additional Past Anesthesia/Blood Transfusion Reaction / Comment(s): AGE 26 RECEIVED TO MUCH AND IT TOOK LONGER TO WAKE UP. SEVERAL BLOOD TRANSFUSIONS IN PAST. Past Psychological History: Depression Smoking Status: Never smoker - Past Family History Mother Family Medical History: Cancer Additional Family Medical History / Comment(s): COLON CANCER Father Additional Family Medical History / Comment(s): IN MVA(ALCOHOL RELATED) Medications and Allergies Home Medications Medication Instructions Recorded Confirmed Type ALPRAZolam [Xanax] 0.5 mg PO DAILY PRN 06/28/17 01/28/19 History Amiodarone [Cordarone] 100 mg PO MOWEFR 06/28/17 01/28/19 History Ondansetron HCl [Zofran] 8 mg PO Q8HR PRN 06/28/17 01/28/19 History Potassium Chloride [K-Tab ER] 10 meq PO BID 06/28/17 01/28/19 History Spironolactone [Aldactone] 12.5 mg PO DAILY 06/28/17 01/28/19 History Sertraline HCl [Zoloft] 100 mg PO HS 06/29/17 01/28/19 History Sildenafil Citrate [Sildenafil] 20 mg PO BID 06/29/17 01/28/19 History Furosemide [Lasix] 40 mg PO DAILY #0 06/30/17 01/28/19 Rx Allopurinol [Zyloprim] 100 mg PO DAILY 01/28/19 01/28/19 History Atenolol [Tenormin] 50 mg PO DAILY 01/28/19 01/28/19 History Folic Acid 1 mg PO DAILY 01/28/19 01/28/19 History Allergies Allergy/AdvReac Type Severity Reaction Status Date / Time Iodinated Contrast- Oral and Allergy Severe Anaphylaxis Verified 01/28/19 08:15 IV Dye Physical Exam Vitals: Vital Signs Temp Pulse Resp BP Pulse Ox 01/30/19 04:58 97.9 F 91 18 105/59 95 01/30/19 00:59 96/48 01/29/19 23:21 94/50 01/29/19 21:50 105/63 01/29/19 21:00 95/54 01/29/19 20:19 97.9 F 80 18 106/54 92 L 01/29/19 15:40 20 01/29/19 13:59 87 20 96/55 91 L 01/29/19 11:50 97.8 F 81 16 90/40 95 Intake and Output 01/29/19 01/30/19 01/30/19 22:59 06:59 14:59 Intake Total 370 50 Output Total 200 Balance 370 -150 Intake: Intake, IV Titration 10 Amount Sodium Chloride 0.9% 1, 10 000 ml @ 75 mls/hr IV . [id number] [facility] Rx#:[id number] Oral 360 50 Output: Urine 200 Uretheral (Carver) 200 Other: Voiding Method Indwelling Catheter Indwelling Catheter Results 01/29/19 06:54 01/29/19 06:54 Current Medications Generic Name Dose Route Start Last Admin Trade Name Freq PRN Reason Stop Dose Admin Acetaminophen 650 mg 01/28/19 13:24 Tylenol Tab PO Q6HR PRN Fever and/ or Mild Pain Allopurinol 100 mg 01/29/19 09:00 01/30/19 08:50 Zyloprim PO 100 mg DAILY SHANELLE Administration Amiodarone HCl 100 mg 01/29/19 09:00 01/29/19 08:02 Cordarone PO 100 mg MOWEFR SHANELLE Administration Famotidine 20 mg 01/28/19 21:00 01/30/19 08:50 Pepcid PO 20 mg BID SHANELLE Administration Furosemide 40 mg 01/29/19 17:00 01/30/19 05:56 Lasix IV 40 mg 0600,1800 SHANELLE Administration Heparin Sodium (Porcine) 5,000 unit 01/28/19 21:00 01/30/19 08:50 Heparin SQ 5,000 unit Q12HR SHANELLE Administration Metoprolol Tartrate 50 mg 01/28/19 21:00 01/30/19 08:50 Lopressor PO 50 mg BID SHANELLE Administration Morphine Sulfate 4 mg 01/28/19 08:27 01/29/19 03:23 Morphine Sulfate (Inj) IVP 4 mg Q4HR PRN Administration Pain Sertraline HCl 100 mg 01/28/19 21:00 01/29/19 20:00 Zoloft PO 100 mg HS SHANELLE Administration Sodium Chloride 10 ml 01/28/19 09:00 01/30/19 08:50 Saline Flush IV 10 ml BID SHANELLE Administration Tramadol HCl 50 mg 01/28/19 12:36 01/28/19 21:06 Ultram PO 50 mg QID PRN Administration Pain Intake and Output 01/29/19 01/30/19 01/30/19 22:59 06:59 14:59 Intake Total 370 50 Output Total 200 Balance 370 -150 Intake: Intake, IV Titration 10 Amount Sodium Chloride 0.9% 1, 10 000 ml @ 75 mls/hr IV . [id number] [facility] Rx#:[id number] Oral 360 50 Output: Urine 200 Uretheral (Carver) 200 Other: Voiding Method Indwelling Catheter Indwelling Catheter 01/29/19 06:54 01/29/19 06:54
[2019-01-30 11:56] LABS: Anisocytosis Moderate; HCT 37.7 % (34.0-46.0); HGB 10.5 gm/dL (11.4-16.0); Hypochromasia Marked; MCH 21.6 pg (25.0-35.0); MCHC 27.9 g/dL (31.0-37.0); MCV 77.3 fL (80.0-100.0); Mean Platelet Volume 7.7; Microcytosis Moderate; Platelet Count 143 k/uL (150-450); Poikilocytosis Moderate; RBC 4.87 m/uL (3.80-5.40); RDW 21.9 % (11.5-15.5)
--- NOTE | 2019-01-30 12:23 | ECHOF ---
Referral Reason:sob MEASUREMENTS -------- HEIGHT: 152.4 cm WEIGHT: 76.7 kg BP: RVIDd: 4.6 cm (< 3.3) IVSd: 1.3 cm (0.6 - 1.1) LVIDd: 4.2 cm (3.9 - 5.3) LVPWd: 1.4 cm (0.6 - 1.1) IVSs: 1.9 cm LVIDs: 2.2 cm LVPWs: 1.5 cm LAESV Index (A-L): 50.70 ml/m Ao Diam: 2.5 cm (2.0 - 3.7) AV Cusp: 1.3 cm (1.5 - 2.6) LA Diam: 4.6 cm (2.7 - 3.8) AV maxP.37 mmHg AV meanP.70 mmHg RAP: 20.00 mmHg RVSP: 71.61 mmHg FINDINGS -------- Atrial fibrillation. This was a technically adequate study. The left ventricular size is normal. There is mild concentric left ventricular hypertrophy. Overa ll left ventricular systolic function is normal with, an EF between 60 - 65 %. The right ventricle is severely enlarged. Left atrium is severely dilated by volume. The right atrium is markedly enlarged. Interatrial and interventricular septum intact. The aortic valve is trileaflet and appears structurally normal. There is mild aortic stenosis prese nt. Moderate mitral annular calcification present. [id number] mitral regurgitation is present. Mild mitral stenosis. Severe tricuspid regurgitation present. There is moderate to severe pulmonary hypertension. The r ight ventricular systolic pressure, as measured by Doppler, is 71.61mmHg. Trace/mild (physiologic) pulmonic regurgitation. The aortic root size is normal. The inferior vena cava is dilated with no significant inspiratory collapse which is consistent estima ann right atrial pressure of >20 mmHg. There is no pericardial effusion. CONCLUSIONS -------- 1. Atrial fibrillation. 2. This was a technically adequate study. 3. The left ventricular size is normal. 4. There is mild concentric left ventricular hypertrophy. 5. Overall left ventricular systolic function is normal with, an EF between 60 - 65 %. 6. The right ventricle is severely enlarged. 7. Left atrium is severely dilated by volume. 8. The right atrium is markedly enlarged. 9. Interatrial and interventricular septum intact. 10. The aortic valve is trileaflet and appears structurally normal. 11. There is mild aortic stenosis present. 12. Moderate mitral annular calcification present. 13. Hxjelpeh-on-bwevck mitral regurgitation is present. 14. Mild mitral stenosis. 15. Severe tricuspid regurgitation present. 16. There is moderate to severe pulmonary hypertension. 17. The right ventricular systolic pressure, as measured by Doppler, is 71.61mmHg. 18. Trace/mild (physiologic) pulmonic regurgitation. 19. The aortic root size is normal. 20. The inferior vena cava is dilated with no significant inspiratory collapse which is consistent es timated right atrial pressure of >20 mmHg. 21. There is no pericardial effusion. ENGINE GENERATOR ASSEMBLER: Tori Ramires RDCS
[2019-01-30 12:45] LABS: Albumin 3.6 g/dL (3.5-5.0); Calcium 9.3 mg/dL (8.4-10.2); Potassium 4.3 mmol/L (3.5-5.1); Total Bilirubin 2.7 mg/dL (0.2-1.3); Total Protein 6.6 g/dL (6.3-8.2)
[2019-01-30 13:13] LABS: Metamyelocytes % 1 %; Neutrophils % (M) 70 %; Nucleated Red Blood Cells 145 /100 WBC (0-0); Total Cells Counted 200
[2019-01-30 13:14] LABS: Lymphocytes # (M) 0.83 k/uL (1.0-4.8); Metamyelocytes # (M) 0.06 k/uL (0); Monocytes # (M) 1.09 k/uL (0-1.0); Neutrophils # (M) 4.48 k/uL (1.3-7.7); WBC 6.4 k/uL (3.8-10.6)
[2019-01-30 13:15] LABS: Target Cells Present
[2019-01-30 13:16] LABS: Basophilic Stippling Present
[2019-01-30 13:24] LABS: Polychromasia Present
[2019-01-30 13:26] LABS: Howell-Jolly Bodies Present; RBC Fragments Present
[2019-01-30 13:28] LABS: Spherocytes Present
--- NOTE | 2019-01-30 13:49 | P.NPCON ---
History of Present Illness - Reason for Consult acute renal failure - History of Present Illness Reason for consultation: Acute kidney injury History of present illness: Patient is a 78-year-old female seen in renal consultation for acute kidney injury. Patient's creatinine in August 2018 was 1.0. He was 1.53 on admission and is 1.59 today. Patient presented to the hospital after sustaining a fall. She was also noted to be in congestive heart failure. She is currently maintained on Lasix 40 mg IV twice daily. She has a Carver catheter. Patient has history of diastolic CHF with moderate to severe mitral regurgitation, severe tricuspid regurgitation as well as moderate to severe pulmonary hyp ertension. Patient continues to complain of dyspnea. Edema in her lower extremities improving. She did have 2 episodes of vomiting this morning. Denies chest pain. Denies use of nonsteroidals. No history of diabetes. No fever or chills. Blood pressure is also on the lower side in the systolic 90s. Vital signs are stable. General: The patient appeared well nourished and normally developed. HEENT: Head exam is unremarkable. Neck is without jugular venous distension. LUNGS: Breath sounds decreased. HEART: Rate and Rhythm are regular. First and second heart sounds normal. No murmurs, rubs or gallops. ABDOMEN: Abdominal exam reveals normal bowel sounds. Non-tender and non- distended. No evidence of peritonitis. EXTREMITITES: Trace edema. Past Medical History Past Medical History: Atrial Fibrillation, Heart Failure, Deep Vein Thrombosis (DVT), GERD/Reflux, Hypertension, Osteoarthritis (OA), Syncope Additional Past Medical History / Comment(s): Chronic atrial fibrillation, congestion heart failure, remote history of DVT, hypertension, osteoarthritis, depression, cataracts, history of septicemia, secondary pulmonary hypertension with evidence of moderate degree of mitral regurgitation based on the previous echocardiogram had also noted a PA pressure of 51, diverticulosis, chronic anemia, hard of hearing History of Any Multi-Drug Resistant Organisms: None Reported Past Surgical History: Cholecystectomy, Hysterectomy Additional Past Surgical History / Comment(s): SPLENECTOMY, VARICOSE VEIN SX TAWANNA LEGS, TAWANNA KNEE REPLACMENTS, CATARACTS Past Anesthesia/Blood Transfusion Reactions: Previous Problems w/ Anesthesia Additional Past Anesthesia/Blood Transfusion Reaction / Comment(s): AGE 26 RECEIVED TO MUCH AND IT TOOK LONGER TO WAKE UP. SEVERAL BLOOD TRANSFUSIONS IN PAST. Past Psychological History: Depression Smoking Status: Never smoker - Past Family History Mother Family Medical History: Cancer Additional Family Medical History / Comment(s): COLON CANCER Father Additional Family Medical History / Comment(s): IN MVA(ALCOHOL RELATED) Medications and Allergies Home Medications Medication Instructions Recorded Confirmed Type ALPRAZolam [Xanax] 0.5 mg PO DAILY PRN 06/28/17 01/28/19 History Amiodarone [Cordarone] 100 mg PO MOWEFR 06/28/17 01/28/19 History Ondansetron HCl [Zofran] 8 mg PO Q8HR PRN 06/28/17 01/28/19 History Potassium Chloride [K-Tab ER] 10 meq PO BID 06/28/17 01/28/19 History Spironolactone [Aldactone] 12.5 mg PO DAILY 06/28/17 01/28/19 History Sertraline HCl [Zoloft] 100 mg PO HS 06/29/17 01/28/19 History Sildenafil Citrate [Sildenafil] 20 mg PO BID 06/29/17 01/28/19 History Furosemide [Lasix] 40 mg PO DAILY #0 06/30/17 01/28/19 Rx Allopurinol [Zyloprim] 100 mg PO DAILY 01/28/19 01/28/19 History Atenolol [Tenormin] 50 mg PO DAILY 01/28/19 01/28/19 History Folic Acid 1 mg PO DAILY 01/28/19 01/28/19 History Allergies Allergy/AdvReac Type Severity Reaction Status Date / Time Iodinated Contrast- Oral and Allergy Severe Anaphylaxis Verified 01/28/19 08:15 IV Dye Physical Exam Vitals: Vital Signs Temp Pulse Resp BP Pulse Ox 01/30/19 11:58 97.8 F 90 18 95/50 94 L 01/30/19 08:15 86 18 92/54 95 01/30/19 07:35 18 01/30/19 04:58 97.9 F 91 18 105/59 95 01/30/19 00:59 96/48 01/29/19 23:21 94/50 01/29/19 21:50 105/63 01/29/19 21:00 95/54 01/29/19 20:19 97.9 F 80 18 106/54 92 L 01/29/19 15:40 20 01/29/19 13:59 87 20 96/55 91 L Intake and Output 01/29/19 01/30/19 01/30/19 22:59 06:59 14:59 Intake Total 370 50 Output Total 200 Balance 370 -150 Intake: Intake, IV Titration 10 Amount Sodium Chloride 0.9% 1, 10 000 ml @ 75 mls/hr IV . [id number] [facility] Rx#:[id number] Oral 360 50 Output: Urine 200 Uretheral (Carver) 200 Other: Voiding Method Indwelling Catheter Indwelling Catheter Indwelling Catheter Results - Lab Results Most recent lab results ABG pH 7.34 (7.35-7.45) L 01/29/19 13:10 ABG pCO2 55 mmHg (35-45) H 01/29/19 13:10 ABG pO2 63 mmHg (83-108) L 01/29/19 13:10 ABG HCO3 30 mmol/L (21-25) H 01/29/19 13:10 ABG O2 Saturation 92.2 % (94-97) L 01/29/19 13:10 Calcium 9.3 mg/dL (8.4-10.2) 01/30/19 12:05 01/30/19 10:32 01/30/19 12:05 Assessment and Plan Plan: Assessment: 1. Acute kidney injury mostly prerenal secondary to cardiorenal syndrome. Creatinine is 1.59 today. Baseline creatinine near 1. 2. Dyspnea secondary to volume overload. 3. Diastolic CHF with moderate to severe mitral regurgitation, severe tricuspid regurgitation, moderate to severe pulmonary hypertension. 4. Status post fall. 5. Anemia. No active bleeding. Rule out iron deficiency. Plan: Maintain IV Lasix 40 mg twice daily. Check iron studies. Check urinalysis. Check kidney ultrasound. Check CK level. Encourage oral intake. Repeat electrolytes in the morning. Thank you for the consultation. I will continue to follow the patient with you during her hospital stay.
--- NOTE | 2019-01-30 15:07 | US ---
EXAMINATION TYPE: US kidneys/renal and bladder DATE OF EXAM: 01/30/2019 COMPARISON: NONE CLINICAL HISTORY: adilia. ADILIA, exam done portable. EXAM MEASUREMENTS: Right Kidney: 10.6 x 4.7 x 6.4 cm Left Kidney: 10.9 x 5.4 x 5.6 cm Right Kidney: 2 cystic area superior largest measuring 1.5 x 1.7 x 1.6cm Left Kidney: wnl Bladder: not well visualized, not distended - sadler catheter There is no evidence for hydronephrosis at this point in time. No nephrolithiasis is seen. No segundo s are identified. The urinary bladder is incompletely distended IMPRESSION: No hydronephrosis or nephrolithiasis in this patient with acute kidney injury. Interval a ppearing right renal cysts are seen measuring up to 1.7 cm.
--- NOTE | 2019-01-30 15:27 | P.PN ---
Subjective 70-year-old female admitted after a mechanical fall also found to have pulmonary edema unfortunately blood pressure is extremely low to do her Lasix today morning she went received IV fluids repeat chest x-ray showing worsening pulmonary edema patient does have elevated JVD patient creatinine did improve with Lasix from 1.7-1.4 patient does have moderate pulmonary hypertension. Baseline creatinine 0.9. Patient although clinically looks better than yesterday 01/30/2019 Patient has minimal or no improvement in her respiratory status patient is mildly negative fluid balance. Nephrology will be consulted. Discussed with the pulmonary. Constitutional: Denied any fatigue denied any fever. Cardio vascular: denied any chest pain, palpitations Gastrointestinal denied any nausea vomiting Pulmonary: Continues to have shortness of breath Neurologic denied any new focal deficits All inpatient medications were reviewed and appropriate changes in these medications as dictated in the interval history and assessment and plan. Objective - Vital Signs Vital signs: Vital Signs Temp 97.8 F 01/30/19 11:58 Pulse 90 01/30/19 11:58 Resp 18 01/30/19 11:58 BP 95/50 01/30/19 11:58 Pulse Ox 94 L 01/30/19 11:58 Intake & Output 01/29/19 01/30/19 01/30/19 18:59 06:59 18:59 Intake Total 560 60 Output Total 200 Balance 560 -140 Intake: Intake, IV Titration 10 Amount Sodium Chloride 0.9% 1, 10 000 ml @ 75 mls/hr IV . [id number] [facility] Rx#:[id number] Oral 560 50 Output: Urine 200 Uretheral (Carver) 200 Other: Voiding Method Indwelling Catheter Indwelling Catheter Indwelling Catheter - Exam PHYSICAL EXAMINATION: GENERAL: The patient is alert and oriented x3, not in any acute distress. Elderly female HEENT: Pupils are round and equally reacting to light. EOMI. No scleral icterus. No conjunctival pallor. Normocephalic, atraumatic. No pharyngeal erythema. No thyromegaly. CARDIOVASCULAR: S1 and S2 present. No murmurs, rubs, or gallops. Patient does have elevated JVD PULMONARY: Bibasilar crackles are appreciated diffuse ABDOMEN: Soft, nontender, nondistended, normoactive bowel sounds. No palpable organomegaly. MUSCULOSKELETAL: No joint swelling or deformity. EXTREMITIES: No cyanosis, clubbing, mild pitting pedal edema NEUROLOGICAL: Gross neurological examination did not reveal any focal deficits. SKIN: No rashes. - Labs CBC & Chem 7: 01/30/19 10:32 01/30/19 12:05 Labs: Abnormal Lab Results - Last 24 Hours (Table) 01/30/19 01/30/19 01/30/19 Range/Units 10:32 12:05 12:05 Hgb 10.5 L (11.4-16.0) gm/dL MCV 77.3 L (80.0-100.0) fL MCH 21.6 L (25.0-35.0) pg MCHC 27.9 L (31.0-37.0) g/dL RDW 21.9 H (11.5-15.5) % Plt Count 143 L (150-450) k/uL Lymphocytes # (Manual) 0.83 L (1.0-4.8) k/uL Monocytes # (Manual) 1.09 H (0-1.0) k/uL Metamyelocytes # (Man) 0.06 H (0) k/uL Nucleated RBCs 145 H (0-0) /100 WBC BUN 54 H (7-17) mg/dL Creatinine 1.59 H (0.52-1.04) mg/dL Total Bilirubin 2.7 H (0.2-1.3) mg/dL Creatine Kinase 21 L (30-135) U/L Assessment and Plan Plan: -Mechanical fall and a T12 compression fracture TLSO brace along with the physical therapy occupational therapy discharged to subacute rehabilitation -Congestive heart failure chronic diastolic dysfunction with acute exacerbation patient blood pressure is already low close clinical monitoring IV Lasix still volume overloaded quite a bit. Atrial fibrillation: Presently rate controlled continue with the rate control medications patient is not on any anti-correlation because of her GI bleed in the past -Acute renal failure: Prerenal azotemia secondary to heart failure exacerbation patient creatinine minimally elevated fairly stable compared to yesterday -Gastroesophageal reflux disease -Osteoarthritis Patient will need pharmacologic GI and DVT prophylaxis
--- NOTE | 2019-01-30 15:55 | CDI ---
Documentation Clarification Form Date: 01/30/2019 3:40:28 PM From: Yeni Sierra CCS, CCDS Admit Date: 01/28/2019 8:26:00 AM Patient Name: Wendi Liao Visit Number: [id number] Discharge Date: ATTENTION: The Clinical Documentation Specialists (CDI) and [facility] Coding Staff appreciate your assistance in clarifying documentation. Please respond to the clarification below the line at the bottom and electronically sign. The CDI & [facility] Coding staff will review the response and follow-up if needed. Please note: Queries are made part of the Legal Health Record. If you have any questions, please contact the author of this message via ITS. Dr. David Milton: Patient was admitted with acute exacerbation of diastolic CHF & acute kidney failure. Per the nephrology consult: "Acute kidney injury mostly prerenal secondary to cardiorenal syndrome. Creatinine is 1.59 today. Baseline creatinine near 1. History/Risk Factors: Paroxysmal Atrial Fibrillation, CHF, DVT, GERD, Hypertension, OA, Anemia. Clinical Indicators: 70-year-old female came in from [facility] patient had a fall appears to be mechanical fall. Patient is found to be in heart failure exacerbation because of which patient was transferred here. BUN: 48 - 54 Creatinine: 1.53 - 1.59 GFR 32 - 31 Treatment: IV Morphine, IV Lasix, Nitropaste, IV fluids, IV fluid bolus. In order to capture the severity of condition, please clarify if the condition signifies: CKD Stage 1 (GFR > 90) CKD Stage 2 (GFR 60-89) CKD Stage 3 (GFR 30-59) Other, please specify Unable to determine (Last Revision: December 2017) MTDD
--- NOTE | 2019-01-30 16:54 | P.PN ---
Subjective Progress Note Date: 01/30/19 Principal diagnosis: acute hypoxic respiratory failure secondary to decompensated heart failure. And underlying valvular heart disease. A [age]-year-old female patient transferred from [facility] [place] after she had a fall. The patient sustained a fall the day prior to admission and she landed on her buttocks. She experienced some mid and lower thoracic pain and also pain in lower lumbar spine. CAT scan of the thoracic spine and the pelvis was taken and there is evidence of loss of disc height at the level of L5-S1, the narrowing at the level of L3-L4 and L4-L5 for which orthopedic surgery was consulted. She also has a T12 compression fracture She had increased lower back pain with movement of her spine. This patient lives with her and she has past medical history of congestion heart failure, atrial fibrillation, remote history of DVT, hypertension and osteoarthritis. The patient at a time of admission was quite sick and short of breath and she was having difficulty breathing with a component of CHF/pulmonary edema. BNP was 3000. The patient was also noted to be in acute kidney injury. Creatinine was at 1.5 from a normal baseline. Her chest x-ray was consistent with CHF and prominent interstitium. Based on her ongoing shortness of breath, the patient underwent a blood gas today that showed a pH of 7.34 with a pCO2 of 55 and pO2 of 63 and this was done on a FiO2 of 4 L of oxygen by nasal cannula. Based on this, a pulmonary consultation was r equested. At this point in time, the patient is on tramadol for pain control, morphine for pain control, metoprolol and amiodarone regarding her previous history of atrial fibrillation. She has had a previous echocardiogram in 2017 that showed a normal EF around 55-60% in addition to moderate MR, moderate TR, moderate pulmonary hypertension with a PA pressure of 71 in addition to borderline concentric left ventricle hypertrophy. Patient was reevaluated today on 01/30/2019, feeling better, breathing easier, seen by cardiology, remains on diuretics,follow-up chest x-ray showed slight improvement in her interstitial edema.being followed by nephrology for what seems to be a cardiorenal syndrome creatinine is 1.5 today, baseline is 1. Patient's presentation was clearly a presentation of diastolic congestive heart failure with moderate to severe mitral regurgitation, and moderate to severe pulmonary hypertension. Objective - Vital Signs Vital signs: Vital Signs Temp 97.8 F 01/30/19 11:58 Pulse 90 01/30/19 11:58 Resp 18 01/30/19 11:58 BP 95/50 01/30/19 11:58 Pulse Ox 94 L 01/30/19 11:58 Intake & Output 01/29/19 01/30/19 01/30/19 18:59 06:59 18:59 Intake Total 560 60 200 Output Total 200 Balance 560 -140 200 Intake: Intake, IV Titration 10 Amount Sodium Chloride 0.9% 1, 10 000 ml @ 75 mls/hr IV . [id number] [facility] Rx#:[id number] Oral 560 50 200 Output: Urine 200 Uretheral (Carver) 200 Other: Voiding Method Indwelling Catheter Indwelling Catheter Indwelling Catheter - Exam GENERAL: The patient is alert and oriented x3, not in any acute distress. HEENT: PERRLA, EOMI, no icterus. Positive JVD.. CARDIOVASCULARnormal S1 and S2, 3/6 systolic murmur thought the precordium. PULMONARY: minimal fine crackles at the bases, no rhonchi and no wheezes. ABDOMEN: Soft, nontender, nondistended, normoactive bowel sounds. No palpable organomegaly. MUSCULOSKELETAL: no limitation in range of motion, no deformities.. EXTREMITIES: mild pitting edema, no clubbing no cyanosis.a NEUROLOGICAL:alert oriented 3, no gross focal neurologic deficits. Psychiatric: Normal mood affect and mental status examination. SKIN: No rashes. - Labs CBC & Chem 7: 01/30/19 10:32 01/30/19 12:05 Labs: Abnormal Lab Results - Last 24 Hours (Table) 01/30/19 01/30/19 01/30/19 Range/Units 10:32 12:05 12:05 Hgb 10.5 L (11.4-16.0) gm/dL MCV 77.3 L (80.0-100.0) fL MCH 21.6 L (25.0-35.0) pg MCHC 27.9 L (31.0-37.0) g/dL RDW 21.9 H (11.5-15.5) % Plt Count 143 L (150-450) k/uL Lymphocytes # (Manual) 0.83 L (1.0-4.8) k/uL Monocytes # (Manual) 1.09 H (0-1.0) k/uL Metamyelocytes # (Man) 0.06 H (0) k/uL Nucleated RBCs 145 H (0-0) /100 WBC BUN 54 H (7-17) mg/dL Creatinine 1.59 H (0.52-1.04) mg/dL Total Bilirubin 2.7 H (0.2-1.3) mg/dL Creatine Kinase 21 L (30-135) U/L Assessment and Plan Assessment: impression: 1acute hypoxic respiratory failure secondary to diastolic congestive heart failure with known history of valvular heart disease and severe pulmonary hypertension. 2 status post fall with compression fracture of T12 3 chronic atrial fibrillation 4 remote history of DVT 5 hypertension 6 osteoarthritis 7 diverticulosis 8 history of thalassemia, 9 acute kidney injury, possible cardiorenal syndrome. Recommendation: Continue present treatment plan as per cardiology and nephrology, no active pulmonary issues need to be addressed at this point except her cardiac condition, we'll sign off and see the patient on when necessary basis. Time with Patient: Less than 30
[2019-01-30 18:32] LABS: Iron Saturation 28.87 (12.00-45.00)
[2019-01-30 19:02] LABS: Amorphous Sediment,Urine Rare /hpf; Appearance,Urine Cloudy (Clear); Bacteria,Urine Rare /hpf; Bilirubin,Urine Negative (Negative); Blood,Urine Moderate (Negative); Color,Urine Yellow; Glucose,Urine (UA) Negative (Negative); Hyaline Casts,Urine 34 /lpf (0-2); Ketones,Urine Negative (Negative); Leukocyte Esterase,Urine Large (Negative); Mucus,Urine Moderate /hpf; Nitrite,Urine Negative (Negative); PH, Urine 5.5 (5.0-8.0); Protein,Urine 1+ (Negative); RBC,Urine >182 /hpf (0-5); Specific Gravity,Urine 1.014 (1.001-1.035); Urobilinogen,Urine <2.0 mg/dL (<2.0); WBC,Urine 39 /hpf (0-5)
[2019-01-30] MEDS: SERTRALINE 100 MG TAB PO SCH (21:01)
[2019-01-30] MEDS: MORPHINE SULFATE 4 MG/ML SYRINGE IVP PRN (23:02)
[2019-01-31] MEDS: FUROSEMIDE 10 MG/ML 4 ML VIAL IV SCH ×2 (06:20→22:05)
[2019-01-31 07:53] LABS: Anisocytosis Moderate; HCT 37.7 % (34.0-46.0); HGB 10.8 gm/dL (11.4-16.0); Hypochromasia Marked; MCH 21.9 pg (25.0-35.0); MCHC 28.6 g/dL (31.0-37.0); MCV 76.9 fL (80.0-100.0); Mean Platelet Volume 8.9; Microcytosis Moderate; Platelet Count 142 k/uL (150-450); Poikilocytosis Moderate
[2019-01-31 08:14] LABS: Calcium 9.1 mg/dL (8.4-10.2); Magnesium 2.3 mg/dL (1.6-2.3)
[2019-01-31] MEDS: ALLOPURINOL 100 MG TAB PO SCH (09:59)
[2019-01-31] MEDS: HEPARIN SODIUM,PORCINE 5,000 UNIT/ML 1 ML VIAL SQ SCH ×2 (10:00→21:57)
[2019-01-31] MEDS: FAMOTIDINE 20 MG TAB PO SCH (10:00)
[2019-01-31] MEDS: AMIODARONE 100 MG TAB PO SCH (10:02)
[2019-01-31 10:30] LABS: WBC 17.8 k/uL (3.8-10.6)
--- NOTE | 2019-01-31 10:37 | P.PN ---
Subjective Patient is seen in follow-up for acute kidney injury. Renal function is stable. Creatinine 1.56 today. Edema has improved. Denies chest pain. Dyspnea better. Vital signs are stable. General: The patient appeared well nourished and normally developed. HEENT: Head exam is unremarkable. Neck is without jugular venous distension. LUNGS: Lungs are clear to auscultation and percussion. Breath sounds decreased. HEART: Rate and Rhythm are regular. First and second heart sounds normal. No murmurs, rubs or gallops. ABDOMEN: Abdominal exam reveals normal bowel sounds. Non-tender and non- distended. No evidence of peritonitis. EXTREMITITES: No clubbing, cyanosis, or edema. Objective - Vital Signs Vital signs: Vital Signs Temp 97.2 F L 01/31/19 05:00 Pulse 82 01/31/19 05:00 Resp 16 01/31/19 09:09 BP 105/54 01/31/19 06:14 Pulse Ox 96 01/31/19 05:00 Intake & Output 01/30/19 01/31/19 01/31/19 18:59 06:59 18:59 Intake Total 300 100 Output Total 975 100 Balance 300 -875 -100 Weight 63 kg Intake: Oral 300 100 Output: Urine 975 100 Uretheral (Carver) 975 100 Other: Voiding Method Indwelling Catheter Indwelling Catheter Indwelling Catheter - Labs CBC & Chem 7: 01/31/19 06:43 01/31/19 06:43 Labs: Abnormal Lab Results - Last 24 Hours (Table) 01/29/19 01/30/19 01/30/19 Range/Units 06:54 10:32 12:05 WBC 17.8 H (3.8-10.6) k/uL Hgb 10.5 L (11.4-16.0) gm/dL MCV 77.3 L (80.0-100.0) fL MCH 21.6 L (25.0-35.0) pg MCHC 27.9 L (31.0-37.0) g/dL RDW 21.9 H (11.5-15.5) % Plt Count 143 L (150-450) k/uL Lymphocytes # (Manual) 0.83 L (1.0-4.8) k/uL Monocytes # (Manual) 1.09 H (0-1.0) k/uL Metamyelocytes # (Man) 0.06 H (0) k/uL Nucleated RBCs 145 H (0-0) /100 WBC Carbon Dioxide (22-30) mmol/L BUN 54 H (7-17) mg/dL Creatinine 1.59 H (0.52-1.04) mg/dL Glucose (74-99) mg/dL Total Bilirubin 2.7 H (0.2-1.3) mg/dL Creatine Kinase (30-135) U/L Urine Appearance (Clear) Urine Protein (Negative) Urine Blood (Negative) Ur Leukocyte Esterase (Negative) Urine RBC (0-5) /hpf Urine WBC (0-5) /hpf Amorphous Sediment (None) /hpf Urine Bacteria (None) /hpf Hyaline Casts (0-2) /lpf Urine Mucus (None) /hpf 01/30/19 01/30/19 01/31/19 Range/Units 12:05 Unknown 06:43 WBC 13.5 H (3.8-10.6) k/uL Hgb 10.8 L (11.4-16.0) gm/dL MCV 76.9 L (80.0-100.0) fL MCH 21.9 L (25.0-35.0) pg MCHC 28.6 L (31.0-37.0) g/dL RDW 22.0 H (11.5-15.5) % Plt Count 142 L (150-450) k/uL Lymphocytes # (Manual) (1.0-4.8) k/uL Monocytes # (Manual) (0-1.0) k/uL Metamyelocytes # (Man) (0) k/uL Nucleated RBCs (0-0) /100 WBC Carbon Dioxide (22-30) mmol/L BUN (7-17) mg/dL Creatinine (0.52-1.04) mg/dL Glucose (74-99) mg/dL Total Bilirubin (0.2-1.3) mg/dL Creatine Kinase 21 L (30-135) U/L Urine Appearance Cloudy H (Clear) Urine Protein 1+ H (Negative) Urine Blood Moderate H (Negative) Ur Leukocyte Esterase Large H (Negative) Urine RBC >182 H (0-5) /hpf Urine WBC 39 H (0-5) /hpf Amorphous Sediment Rare H (None) /hpf Urine Bacteria Rare H (None) /hpf Hyaline Casts 34 H (0-2) /lpf Urine Mucus Moderate H (None) /hpf 01/31/19 Range/Units 06:43 WBC (3.8-10.6) k/uL Hgb (11.4-16.0) gm/dL MCV (80.0-100.0) fL MCH (25.0-35.0) pg MCHC (31.0-37.0) g/dL RDW (11.5-15.5) % Plt Count (150-450) k/uL Lymphocytes # (Manual) (1.0-4.8) k/uL Monocytes # (Manual) (0-1.0) k/uL Metamyelocytes # (Man) (0) k/uL Nucleated RBCs (0-0) /100 WBC Carbon Dioxide 31 H (22-30) mmol/L BUN 58 H (7-17) mg/dL Creatinine 1.56 H (0.52-1.04) mg/dL Glucose 72 L (74-99) mg/dL Total Bilirubin (0.2-1.3) mg/dL Creatine Kinase (30-135) U/L Urine Appearance (Clear) Urine Protein (Negative) Urine Blood (Negative) Ur Leukocyte Esterase (Negative) Urine RBC (0-5) /hpf Urine WBC (0-5) /hpf Amorphous Sediment (None) /hpf Urine Bacteria (None) /hpf Hyaline Casts (0-2) /lpf Urine Mucus (None) /hpf Assessment and Plan Plan: Assessment: 1. Acute kidney injury mostly prerenal secondary to cardiorenal syndrome. Renal function stable. Creatinine is 1.56 today. Baseline creatinine near 1 from August 2018. No evidence of CKD at this time but will need to monitor outpatient. No hydronephrosis noted on renal ultrasound. 2. Dyspnea secondary to volume overload. Better. 3. Diastolic CHF with moderate to severe mitral regurgitation, severe tricuspid regurgitation, moderate to severe pulmonary hypertension. 4. Status post fall. Plan: I will change Lasix to 40 mg orally twice daily. Repeat electrolytes in the morning. Encouraged oral intake.
[2019-01-31 10:54] LABS: Neutrophils % (M) 77 %; Nucleated Red Blood Cells 112 /100 WBC (0-0); Total Cells Counted 200
[2019-01-31 10:55] LABS: Howell-Jolly Bodies Present; Polychromasia Present; Target Cells Present
[2019-01-31 10:56] LABS: Basophilic Stippling Present; RBC Fragments Present
[2019-01-31 11:03] LABS: Lymphocytes # (M) 0.51 k/uL (1.0-4.8); Monocytes # (M) 0.96 k/uL (0-1.0); Neutrophils # (M) 4.93 k/uL (1.3-7.7); WBC 6.4 k/uL (3.8-10.6)
[2019-01-31 11:05] LABS: Eosinophils # (M) 0.06 k/uL (0-0.7)
--- NOTE | 2019-01-31 11:47 | XR ---
EXAMINATION TYPE: XR chest 2V DATE OF EXAM: 01/31/2019 COMPARISON: 01/29/2019 HISTORY: Shortness of breath TECHNIQUE: Frontal and lateral views of the chest are obtained. FINDINGS: Scattered senescent parenchymal changes noted. Hyperinflation compatible with COPD. Cardiomegaly with pulmonary venous congestion scattered interstitial edema. Mediastinal structures are stable and grossly unremarkable. No evidence for hilar prominence. Degenerative changes dorsal spine. IMPRESSION: 1. Stable features of mild congestive failure.
--- NOTE | 2019-01-31 12:18 | P.CNPUL ---
History of Present Illness Consult date: 01/31/19 Reason for consult: dyspnea, hypoxemia Chief complaint: Hypoxemia History of present illness: This is a 78-year-old female who presented to the hospital as a transfer from [facility]. The patient had a fall at home and had back pain. The patient was found to have a T12 compression fracture. The patient has a complicated medical history. She has known thalassemia minor, congestive heart failure, pulmonary hypertension, history of DVT. Currently the patient is sitting up in the chair on 4 L nasal cannula. Her O2 saturation is found to be 78%. Her oxygen is increased to 6 L nasal cannula and her O2 saturation improved to 92%. Nursing staff is at bedside and is aware. The patient is somnolent. Nursing staff states that she has waxing and waning of her mentation. The patient has acute kidney injury as well likely secondary to cardiorenal syndrome. Chest x-ray shows cardiomegaly with pulmonary venous congestion and interstitial edema. The patient was last seen by Dr. Ugalde pulmonary hypertension specialist in 2015. At that time it was recommended she have a right heart catheterization. It is unclear if this was ever done. The patient has atrial fibrillation as well and per cardiology notes was told not to take anticoagulation by her primary lofter. The patient had a pulmonary function test done on 01/10/2019 which showed moderate obstruction, decreased DLCO. Review of Systems All systems: negative Past Medical History Past Medical History: Atrial Fibrillation, Heart Failure, Deep Vein Thrombosis (DVT), GERD/Reflux, Hypertension, Osteoarthritis (OA), Syncope Additional Past Medical History / Comment(s): Chronic atrial fibrillation, congestion heart failure, remote history of DVT, hypertension, osteoarthritis, depression, cataracts, history of septicemia, secondary pulmonary hypertension with evidence of moderate degree of mitral regurgitation based on the previous echocardiogram had also noted a PA pressure of 51, diverticulosis, chronic anemia, hard of hearing, falastenia blood disorder History of Any Multi-Drug Resistant Organisms: None Reported Past Surgical History: Cholecystectomy, Hysterectomy Additional Past Surgical History / Comment(s): SPLENECTOMY, VARICOSE VEIN SX TAWANNA LEGS, TAWANNA KNEE REPLACMENTS, CATARACTS Past Anesthesia/Blood Transfusion Reactions: Previous Problems w/ Anesthesia Additional Past Anesthesia/Blood Transfusion Reaction / Comment(s): AGE 26 RECEIVED TO MUCH AND IT TOOK LONGER TO WAKE UP. SEVERAL BLOOD TRANSFUSIONS IN PAST. Past Psychological History: Depression Additional Psychological History / Comment(s): PT IS INDEPENDANT. LIVES W/ HUS BAND IN SINGLE STORY HOME THAT HAS 2 PORCH STEPS. HAS 3 DOGS AND 2 CATS, NO HOME CARE SERVICES RECIEVED. HAS CPAP MACHINE. Smoking Status: Never smoker Past Alcohol Use History: None Reported Past Drug Use History: None Reported - Past Family History Mother Family Medical History: Cancer Additional Family Medical History / Comment(s): COLON CANCER Father Additional Family Medical History / Comment(s): IN MVA(ALCOHOL RELATED) Medications and Allergies Home Medications Medication Instructions Recorded Confirmed Type ALPRAZolam [Xanax] 0.5 mg PO DAILY PRN 06/28/17 01/28/19 History Amiodarone [Cordarone] 100 mg PO MOWEFR 06/28/17 01/28/19 History Ondansetron HCl [Zofran] 8 mg PO Q8HR PRN 06/28/17 01/28/19 History Potassium Chloride [K-Tab ER] 10 meq PO BID 06/28/17 01/28/19 History Spironolactone [Aldactone] 12.5 mg PO DAILY 06/28/17 01/28/19 History Sertraline HCl [Zoloft] 100 mg PO HS 06/29/17 01/28/19 History Sildenafil Citrate [Sildenafil] 20 mg PO BID 06/29/17 01/28/19 History Furosemide [Lasix] 40 mg PO DAILY #0 06/30/17 01/28/19 Rx Allopurinol [Zyloprim] 100 mg PO DAILY 01/28/19 01/28/19 History Atenolol [Tenormin] 50 mg PO DAILY 01/28/19 01/28/19 History Folic Acid 1 mg PO DAILY 01/28/19 01/28/19 History Allergies Allergy/AdvReac Type Severity Reaction Status Date / Time Iodinated Contrast- Oral and Allergy Severe Anaphylaxis Verified 01/28/19 08:15 IV Dye Physical Exam Osteopathic Statement: *. No significant issues noted on an osteopathic structural exam other than those noted in the History and Physical/Consult. Vitals: Vital Signs Temp Pulse Pulse Resp BP BP Pulse Ox 01/31/19 09:09 16 01/31/19 06:14 105/54 01/31/19 05:00 97.2 F L 82 16 108/54 96 01/31/19 01:00 98.9 F 98 18 106/59 94 L 01/30/19 21:00 98.2 F 83 20 112/64 98 01/30/19 18:12 89 20 107/57 91 L 01/30/19 17:05 18 01/30/19 11:58 97.8 F 90 18 95/50 94 L Intake and Output 01/30/19 01/31/19 01/31/19 22:59 06:59 14:59 Intake Total 200 Output Total 675 300 100 Balance -475 -300 -100 Intake: Oral 200 Output: Urine 675 300 100 Uretheral (Carver) 675 300 100 Other: Voiding Method Indwelling Catheter Indwelling Catheter Indwelling Catheter Weight 63 kg Gen.: Patient is alert and oriented 3, somnolent, cyanotic upon initial examination CV: IRRR, s1/s2, rate controlled, + murmur Lungs: diminished breath sounds bilaterally, no wheezes, rales, rhonchi Abd: soft, NT/ND, +BS Ext: 2+ edema Results - Laboratory Findings CBC and BMP: 01/31/19 06:43 01/31/19 06:43 ABG ABG pH 7.34 (7.35-7.45) L 01/29/19 13:10 ABG pCO2 55 mmHg (35-45) H 01/29/19 13:10 ABG pO2 63 mmHg (83-108) L 01/29/19 13:10 ABG O2 Saturation 92.2 % (94-97) L 01/29/19 13:10 PT/INR, D-dimer PT 11.9 sec (9.0-12.0) 01/28/19 14:10 INR 1.1 (<1.2) 01/28/19 14:10 Abnormal lab findings: Abnormal Labs 01/29/19 01/29/19 01/29/19 06:54 06:54 13:10 WBC 17.8 H Hgb 10.8 L MCV 76.6 L MCH 21.9 L MCHC 28.6 L RDW 22.0 H Plt Count 143 L Lymphocytes # (Manual) Monocytes # (Manual) Metamyelocytes # (Man) Nucleated RBCs ABG pH 7.34 L ABG pCO2 55 H ABG pO2 63 L ABG HCO3 30 H ABG Total CO2 32 H ABG O2 Saturation 92.2 L Carbon Dioxide 31 H BUN 48 H Creatinine 1.53 H Glucose 109 H Total Bilirubin Creatine Kinase Urine Appearance Urine Protein Urine Blood Ur Leukocyte Esterase Urine RBC Urine WBC Amorphous Sediment Urine Bacteria Hyaline Casts Urine Mucus 01/30/19 01/30/19 01/30/19 10:32 12:05 12:05 WBC Hgb 10.5 L MCV 77.3 L MCH 21.6 L MCHC 27.9 L RDW 21.9 H Plt Count 143 L Lymphocytes # (Manual) 0.83 L Monocytes # (Manual) 1.09 H Metamyelocytes # (Man) 0.06 H Nucleated RBCs 145 H ABG pH ABG pCO2 ABG pO2 ABG HCO3 ABG Total CO2 ABG O2 Saturation Carbon Dioxide BUN 54 H Creatinine 1.59 H Glucose Total Bilirubin 2.7 H Creatine Kinase 21 L Urine Appearance Urine Protein Urine Blood Ur Leukocyte Esterase Urine RBC Urine WBC Amorphous Sediment Urine Bacteria Hyaline Casts Urine Mucus 01/30/19 01/31/19 01/31/19 Unknown 06:43 06:43 WBC Hgb 10.8 L MCV 76.9 L MCH 21.9 L MCHC 28.6 L RDW 22.0 H Plt Count 142 L Lymphocytes # (Manual) 0.51 L Monocytes # (Manual) Metamyelocytes # (Man) Nucleated RBCs 112 H ABG pH ABG pCO2 ABG pO2 ABG HCO3 ABG Total CO2 ABG O2 Saturation Carbon Dioxide 31 H BUN 58 H Creatinine 1.56 H Glucose 72 L Total Bilirubin Creatine Kinase Urine Appearance Cloudy H Urine Protein 1+ H Urine Blood Moderate H Ur Leukocyte Esterase Large H Urine RBC >182 H Urine WBC 39 H Amorphous Sediment Rare H Urine Bacteria Rare H Hyaline Casts 34 H Urine Mucus Moderate H 01/31/19 06:43 WBC Hgb MCV MCH MCHC RDW Plt Count Lymphocytes # (Manual) Monocytes # (Manual) Metamyelocytes # (Man) Nucleated RBCs ABG pH ABG pCO2 ABG pO2 ABG HCO3 ABG Total CO2 ABG O2 Saturation Carbon Dioxide BUN Creatinine Glucose Total Bilirubin 2.5 H Creatine Kinase Urine Appearance Urine Protein Urine Blood Ur Leukocyte Esterase Urine RBC Urine WBC Amorphous Sediment Urine Bacteria Hyaline Casts Urine Mucus - Diagnostic Findings Chest x-ray: report reviewed, image reviewed Assessment and Plan Assessment: Acute on chronic hypoxic and hypercapnic respiratory failure Severe pulmonary hypertension, RVSP 71 mmHg Acute exacerbation of moderate COPD, FEV1 68% of predicted Status post fall with T12 compression fracture GALDINO on CPAP at 9 cmH2O Acute exacerbation of diastolic congestive heart failure Valvular heart disease - severe mitral regurgitation, severe tricuspid regurgitation Remote history of DVT UTI Hyperbilirubinemia of unclear etiology Thalassemia minor, chronic anemia at baseline, microcytic Mild thrombocytopenia Hypertension Osteoarthritis Acute kidney injury, cardiorenal syndrome O2 to maintain saturation greater than or equal to 90%, increased to 6L NC Pulmicort Duo nebs CPAP at 9 cmH2O nightly and with naps Steroid taper Incentive spirometry and pulmonary hygiene Antibiotics GI and DVT prophylaxis Continue Revatio for PH, patient should follow up with Dr. Gonzalez VQ scan and LE dopplers Check bilis and ammonia level, B12, folate Add Rocephin for UTI Monitor renal function closely Gentle diuresis, I/O, daily weight Cardiology recommendations Pain control Thank you for this consultation we'll continue to follow along
[2019-01-31] MEDS: ATENOLOL 12.5 MG TAB PO SCH (12:39)
[2019-01-31 12:53] LABS: ABG Base Excess 5.1 mmol/L; ABG HCO3 31 mmol/L (21-25); ABG PCO2 54 mmHg (35-45); ABG PH 7.36 (7.35-7.45); ABG PO2 87 mmHg (83-108); ABG TCO2 32 mmol/L (19-24)
--- NOTE | 2019-01-31 13:02 | P.PN ---
Subjective This is a pleasant 78-year-old female past medical history significant for paroxysmal atrial fibrillation, hypertension, pulmonary hypertension and chronic diastolic heart failure. She denies history of coronary artery disease or bypass surgery. She follows with Dr. Mcnally. We have been asked to see her in consultation secondary to heart failure. She is seen and examined sitting up in the chair in no acute distress. She denies any significant shortness of breath. Echocardiogram reveals preserved LV systolic function with ejection fraction 60-65%, mild aortic stenosis, moderate to severe mitral regurgitation with mild mitral stenosis, severe tricuspid regurgitation and moderate to severe pulmonary hypertension with an RVSP of 71 mmHg. Laboratory data reviewed, WBC 13.5, hemoglobin 10.8, platelets 142, sodium 142, potassium 4, creatinine 1.56 with a GFR of 32. Records reviewed from her primary vending machine collector reveal that she has a history of thalassemia minor and this is why she is not on long-term anticoagulation. Blood pressure will 5/54 heart rate 82 afebrile maintaining oxygen saturation on nasal cannula. Weight is documented as changing from 76 kg on admission to 63 kg this morning, unsure if this is accurate. She is maintaining a negative fluid balance with a total of 975 by mouth out the previous 24 hour period. Currently maintained on amiodarone 100 mg Tuesday, Tuesday and Tuesday, Lasix 40 mg IV twice a day. Lopressor was held for bradycardia noted on telemetry and borderline blood pressures. GENERAL: This is a 78-year-old female in no apparent distress at the time of my examination. HEENT: Head is atraumatic, normocephalic. Pupils are equal, round. Sclerae anicteric. Conjunctivae are clear. Mucous membranes of the mouth are moist. Neck is supple. There is mild ongoing jugular venous distention. No carotid bruit is heard. LUNGS: Clear to auscultation no wheezes, rales or rhonchi. No chest wall tenderness is noted on palpation or with deep breathing. Diminished bilaterally. HEART: Irregular rate and rhythm with systolic ejection murmur at all listening points, no rubs or gallops. S1 and S2 heard. EXTREMITIES: No evidence of peripheral edema and no calf tenderness noted. ASSESSMENT Acute on chronic diastolic heart failure and cor pulmonale Acute T6 and T12 fracture Acute kidney injury Paroxysmal atrial fibrillation not on snf anticoagulation Pulmonary hypertension Valvular heart disease, mitral regurgitation and tricuspid regurgitation Hypertension PLAN Resume her atenolol at 12.5 mg today, ongoing telemetry monitoring. Repeat chest xray. Consider transitioning to PO diuretics per nephrology. Nurse Practitioner note has been reviewed, I agree with a documented findings and plan of care. Patient was seen and examined. Objective - Vital Signs Vital signs: Vital Signs Temp 97.2 F L 01/31/19 05:00 Pulse 82 01/31/19 05:00 Resp 16 01/31/19 09:09 BP 105/54 01/31/19 06:14 Pulse Ox 96 01/31/19 05:00 Intake & Output 01/30/19 01/31/19 01/31/19 18:59 06:59 18:59 Intake Total 300 100 Output Total 975 100 Balance 300 -875 -100 Weight 63 kg Intake: Oral 300 100 Output: Urine 975 100 Uretheral (Carver) 975 100 Other: Voiding Method Indwelling Catheter Indwelling Catheter Indwelling Catheter - Labs CBC & Chem 7: 01/31/19 06:43 01/31/19 06:43 Labs: Abnormal Lab Results - Last 24 Hours (Table) 01/30/19 01/30/19 01/30/19 Range/Units 10:32 12:05 12:05 WBC (3.8-10.6) k/uL Hgb 10.5 L (11.4-16.0) gm/dL MCV 77.3 L (80.0-100.0) fL MCH 21.6 L (25.0-35.0) pg MCHC 27.9 L (31.0-37.0) g/dL RDW 21.9 H (11.5-15.5) % Plt Count 143 L (150-450) k/uL Lymphocytes # (Manual) 0.83 L (1.0-4.8) k/uL Monocytes # (Manual) 1.09 H (0-1.0) k/uL Metamyelocytes # (Man) 0.06 H (0) k/uL Nucleated RBCs 145 H (0-0) /100 WBC Carbon Dioxide (22-30) mmol/L BUN 54 H (7-17) mg/dL Creatinine 1.59 H (0.52-1.04) mg/dL Glucose (74-99) mg/dL Total Bilirubin 2.7 H (0.2-1.3) mg/dL Creatine Kinase 21 L (30-135) U/L Urine Appearance (Clear) Urine Protein (Negative) Urine Blood (Negative) Ur Leukocyte Esterase (Negative) Urine RBC (0-5) /hpf Urine WBC (0-5) /hpf Amorphous Sediment (None) /hpf Urine Bacteria (None) /hpf Hyaline Casts (0-2) /lpf Urine Mucus (None) /hpf 01/30/19 01/31/19 01/31/19 Range/Units Unknown 06:43 06:43 WBC 13.5 H (3.8-10.6) k/uL Hgb 10.8 L (11.4-16.0) gm/dL MCV 76.9 L (80.0-100.0) fL MCH 21.9 L (25.0-35.0) pg MCHC 28.6 L (31.0-37.0) g/dL RDW 22.0 H (11.5-15.5) % Plt Count 142 L (150-450) k/uL Lymphocytes # (Manual) (1.0-4.8) k/uL Monocytes # (Manual) (0-1.0) k/uL Metamyelocytes # (Man) (0) k/uL Nucleated RBCs (0-0) /100 WBC Carbon Dioxide 31 H (22-30) mmol/L BUN 58 H (7-17) mg/dL Creatinine 1.56 H (0.52-1.04) mg/dL Glucose 72 L (74-99) mg/dL Total Bilirubin (0.2-1.3) mg/dL Creatine Kinase (30-135) U/L Urine Appearance Cloudy H (Clear) Urine Protein 1+ H (Negative) Urine Blood Moderate H (Negative) Ur Leukocyte Esterase Large H (Negative) Urine RBC >182 H (0-5) /hpf Urine WBC 39 H (0-5) /hpf Amorphous Sediment Rare H (None) /hpf Urine Bacteria Rare H (None) /hpf Hyaline Casts 34 H (0-2) /lpf Urine Mucus Moderate H (None) /hpf
[2019-01-31] MEDS: IPRATROPIUM-ALBUTEROL 3 ML NEB INHALATION SCH ×2 (13:48→19:45)
[2019-01-31] MEDS: LACTULOSE 20 GM/30 ML CUP PO SCH ×2 (15:10→22:04)
--- NOTE | 2019-01-31 15:23 | P.PN ---
Subjective 70-year-old female admitted after a mechanical fall also found to have pulmonary edema unfortunately blood pressure is extremely low to do her Lasix today morning she went received IV fluids repeat chest x-ray showing worsening pulmonary edema patient does have elevated JVD patient creatinine did improve with Lasix from 1.7-1.4 patient does have moderate pulmonary hypertension. Baseline creatinine 0.9. Patient although clinically looks better than yesterday 01/30/2019 Patient has minimal or no improvement in her respiratory status patient is mildly negative fluid balance. Nephrology will be consulted. Discussed with the pulmonary. 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 Patient's crackles improved respiratory status improved but still has elevated JVD patient although was switched to oral Lasix and discuss with the per nephrology and probably will switch her to IV Lasix again for 1 more day. Serum creatinine remains stable. Constitutional: Denied any fatigue denied any fever. Cardio vascular: denied any chest pain, palpitations Gastrointestinal denied any nausea vomiting Pulmonary: Continues to have shortness of breath Neurologic denied any new focal deficits All inpatient medications were reviewed and appropriate changes in these medications as dictated in the interval history and assessment and plan. Objective - Vital Signs Vital signs: Vital Signs Temp 97.6 F 01/31/19 11:55 Pulse 89 01/31/19 11:55 Resp 20 01/31/19 11:55 BP 102/52 01/31/19 11:55 Pulse Ox 96 01/31/19 05:00 Intake & Output 01/30/19 01/31/19 01/31/19 18:59 06:59 18:59 Intake Total 300 100 600 Output Total 975 100 Balance 300 -875 500 Weight 63 kg Intake: Oral 300 100 600 Output: Urine 975 100 Uretheral (Carver) 975 100 Other: Voiding Method Indwelling Catheter Indwelling Catheter Indwelling Catheter - Exam PHYSICAL EXAMINATION: GENERAL: The patient is alert and oriented x3, not in any acute distress. Elderly female HEENT: Pupils are round and equally reacting to light. EOMI. she does have scleral icterus. No conjunctival pallor. Normocephalic, atraumatic. No pharyngeal erythema. No thyromegaly. CARDIOVASCULAR: S1 and S2 present. No murmurs, rubs, or gallops. Patient does have elevated JVD PULMONARY: Bibasilar crackles are appreciated diffuse ABDOMEN: Soft, nontender, nondistended, normoactive bowel sounds. No palpable organomegaly. MUSCULOSKELETAL: No joint swelling or deformity. EXTREMITIES: No cyanosis, clubbing, mild pitting pedal edema NEUROLOGICAL: Gross neurological examination did not reveal any focal deficits. SKIN: No rashes. - Labs CBC & Chem 7: 01/31/19 06:43 01/31/19 06:43 Labs: Abnormal Lab Results - Last 24 Hours (Table) 01/29/19 01/30/19 01/30/19 Range/Units 06:54 10:32 Unknown WBC 17.8 H (3.8-10.6) k/uL Hgb 10.5 L (11.4-16.0) gm/dL MCV 77.3 L (80.0-100.0) fL MCH 21.6 L (25.0-35.0) pg MCHC 27.9 L (31.0-37.0) g/dL RDW 21.9 H (11.5-15.5) % Plt Count 143 L (150-450) k/uL Lymphocytes # (Manual) 0.83 L (1.0-4.8) k/uL Monocytes # (Manual) 1.09 H (0-1.0) k/uL Metamyelocytes # (Man) 0.06 H (0) k/uL Nucleated RBCs 145 H (0-0) /100 WBC ABG pCO2 (35-45) mmHg ABG HCO3 (21-25) mmol/L ABG Total CO2 (19-24) mmol/L Carbon Dioxide (22-30) mmol/L BUN (7-17) mg/dL Creatinine (0.52-1.04) mg/dL Glucose (74-99) mg/dL Total Bilirubin (0.2-1.3) mg/dL Ammonia (<30) umol/L Urine Appearance Cloudy H (Clear) Urine Protein 1+ H (Negative) Urine Blood Moderate H (Negative) Ur Leukocyte Esterase Large H (Negative) Urine RBC >182 H (0-5) /hpf Urine WBC 39 H (0-5) /hpf Amorphous Sediment Rare H (None) /hpf Urine Bacteria Rare H (None) /hpf Hyaline Casts 34 H (0-2) /lpf Urine Mucus Moderate H (None) /hpf 01/31/19 01/31/19 01/31/19 Range/Units 06:43 06:43 06:43 WBC (3.8-10.6) k/uL Hgb 10.8 L (11.4-16.0) gm/dL MCV 76.9 L (80.0-100.0) fL MCH 21.9 L (25.0-35.0) pg MCHC 28.6 L (31.0-37.0) g/dL RDW 22.0 H (11.5-15.5) % Plt Count 142 L (150-450) k/uL Lymphocytes # (Manual) 0.51 L (1.0-4.8) k/uL Monocytes # (Manual) (0-1.0) k/uL Metamyelocytes # (Man) (0) k/uL Nucleated RBCs 112 H (0-0) /100 WBC ABG pCO2 (35-45) mmHg ABG HCO3 (21-25) mmol/L ABG Total CO2 (19-24) mmol/L Carbon Dioxide 31 H (22-30) mmol/L BUN 58 H (7-17) mg/dL Creatinine 1.56 H (0.52-1.04) mg/dL Glucose 72 L (74-99) mg/dL Total Bilirubin 2.5 H (0.2-1.3) mg/dL Ammonia (<30) umol/L Urine Appearance (Clear) Urine Protein (Negative) Urine Blood (Negative) Ur Leukocyte Esterase (Negative) Urine RBC (0-5) /hpf Urine WBC (0-5) /hpf Amorphous Sediment (None) /hpf Urine Bacteria (None) /hpf Hyaline Casts (0-2) /lpf Urine Mucus (None) /hpf 01/31/19 01/31/19 Range/Units 11:53 12:42 WBC (3.8-10.6) k/uL Hgb (11.4-16.0) gm/dL MCV (80.0-100.0) fL MCH (25.0-35.0) pg MCHC (31.0-37.0) g/dL RDW (11.5-15.5) % Plt Count (150-450) k/uL Lymphocytes # (Manual) (1.0-4.8) k/uL Monocytes # (Manual) (0-1.0) k/uL Metamyelocytes # (Man) (0) k/uL Nucleated RBCs (0-0) /100 WBC ABG pCO2 54 H (35-45) mmHg ABG HCO3 31 H (21-25) mmol/L ABG Total CO2 32 H (19-24) mmol/L Carbon Dioxide (22-30) mmol/L BUN (7-17) mg/dL Creatinine (0.52-1.04) mg/dL Glucose (74-99) mg/dL Total Bilirubin (0.2-1.3) mg/dL Ammonia 57 H (<30) umol/L Urine Appearance (Clear) Urine Protein (Negative) Urine Blood (Negative) Ur Leukocyte Esterase (Negative) Urine RBC (0-5) /hpf Urine WBC (0-5) /hpf Amorphous Sediment (None) /hpf Urine Bacteria (None) /hpf Hyaline Casts (0-2) /lpf Urine Mucus (None) /hpf Assessment and Plan Plan: -Mechanical fall and a T12 compression fracture TLSO brace along with the physical therapy occupational therapy discharged to subacute rehabilitation -Congestive heart failure chronic diastolic dysfunction with acute exacerbation patient blood pressure is already low close clinical monitoring IV Lasix still volume overloaded -thalassemia minor -Possible asymptomatic bacteriuria: Was started on antibiotics thinking she has urinary tract infection by pulmonology which will be continued for now possibly can be discontinue tomorrow -Elevated total bilirubin can be related to hepatic condition all the liver enzymes are essentially within normal limits and obtain ultrasound of the abdomen along soft and INR as patient says she has history of cirrhosis. No evidence of that -Hyper ammoniemia secondary to possible liver dysfunction patient will receiving lactulose Atrial fibrillation: Presently rate controlled continue with the rate control medications patient is not on any anti-coagulation because of her GI bleed in the past -Acute renal failure: Prerenal azotemia secondary to heart failure exacerbation patient creatinine minimally elevated fairly stable compared to yesterday -Gastroesophageal reflux disease -Osteoarthritis Patient will need pharmacologic GI and DVT prophylaxis
[2019-01-31 15:53] LABS: INR 1.1 (<1.2); Prothrombin Time 11.5 sec (9.0-12.0)
[2019-01-31] MEDS ORDERED: FUROSEMIDE 40 MG TAB PO SCH (16:00)
--- NOTE | 2019-01-31 17:01 | NM ---
EXAMINATION TYPE: NM pul vent and perfuse DATE OF EXAM: 01/31/2019 COMPARISON: 01/31/2019 11:30 AM PA and lateral chest radiographs HISTORY: Hypoxemia, history DVT, dyspnea TECHNIQUE: Utilizing inhalation of 36.3 mCi Tc 99m DTPA aerosol and intravenous injection of 4.71 mC i of Tc 99m MAA, ventilation and perfusion images are acquired post injection in multiple projections . FINDINGS: There is mild heterogeneity in the perfusion radiotracer distribution throughout the lungs bilaterall y. There is moderate heterogeneity in the ventilation radiotracer distribution throughout the lungs bila terally. There are no mismatched perfusion/ventilation defects. IMPRESSION: Low probability for the diagnosis of pulmonary embolism.
[2019-01-31] MEDS: BUDESONIDE 0.5 MG/2 ML NEBU INHALATION SCH (19:45)
[2019-01-31] MEDS: SERTRALINE 100 MG TAB PO SCH (22:05)
--- NOTE | 2019-01-31 22:42 | US ---
EXAMINATION TYPE: US venous doppler duplex LE BI DATE OF EXAM: 01/31/2019 6:56 PM COMPARISON: NONE CLINICAL HISTORY: edema, rule out DVT. Edema, rule out DVT per order. HX DVT and vein stripping. SIDE PERFORMED: Bilateral TECHNIQUE: The lower extremity deep venous system is examined utilizing real time linear array sonog [place] with graded compression, doppler sonography and color-flow sonography. VESSELS IMAGED: External Iliac Vein (EIV) Common Femoral Vein Deep Femoral Vein Greater Saphenous Vein * Femoral Vein Popliteal Vein Proximal Calf Veins (* superficial vessels) IMPRESSION: 1) Right lower extremity, negative for DVT. 2) Left lower extremity, negative for DVT. *Limitations at mid femoral vein due to catheter placement and pt inability to rotate leg.
[2019-02-01 02:08] LABS: Glucose,Whole Blood 126 mg/dL (75-99)
--- NOTE | 2019-02-01 08:10 | US ---
EXAMINATION TYPE: US gallbladder DATE OF EXAM: 02/01/2019 COMPARISON: None CLINICAL HISTORY: elevated liver enzymes. GB removed. Poor historian Exam performed portable. Limited visualization due to patient body position EXAM MEASUREMENTS: Liver Length: 15.9 cm CBD: 0.9 cm CHD: 1.1 cm Right Kidney: 10.7 x 5.1 x 4.5 cm Pancreas: Limited visualization due to overlying bowel gas. In pancreatic area vs superior to, clust er of hypoechoic lesions seen= 2.9 x 3.3 x 1.3 cm Liver: wnl Gallbladder: Surgically absent Evidence for sonographic Elena's sign: neg CBD: wnl CHD: Slightly dilated Right Kidney: Superior cystic appearing lesion - 1.4 x 1.5 x 1.2 cm IMPRESSION: 1. Complex cystic area at the head of the pancreas. Additional workup with contrast CT utilizing panc reas protocol is recommended. Neoplasm considered within the differential. 2. Minimal amount of free fluid adjacent to the liver. 3. Probable simple cyst superior pole right kidney. Monitoring is recommended.
[2019-02-01] MEDS: IPRATROPIUM-ALBUTEROL 3 ML NEB INHALATION SCH ×3 (08:38→21:35)
[2019-02-01] MEDS: BUDESONIDE 0.5 MG/2 ML NEBU INHALATION SCH ×2 (08:38→21:35)
--- NOTE | 2019-02-01 09:02 | P.PN ---
Subjective Patient is seen in follow-up for acute kidney injury. Renal function is stable. Creatinine 1.56 as of yesterday. Edema has improved. Denies chest pain. Dyspnea better. Patient received IV Lasix last night and again this morning. Vital signs are stable. General: The patient appeared well nourished and normally developed. HEENT: Head exam is unremarkable. Neck is without jugular venous distension. LUNGS: Lungs are clear to auscultation and percussion. Breath sounds decreased. HEART: Rate and Rhythm are regular. First and second heart sounds normal. No murmurs, rubs or gallops. ABDOMEN: Abdominal exam reveals normal bowel sounds. Non-tender and non- distended. No evidence of peritonitis. EXTREMITITES: No clubbing, cyanosis, or edema. Objective - Vital Signs Vital signs: Vital Signs Temp 97.9 F 02/01/19 04:46 Pulse 88 02/01/19 08:44 Resp 18 02/01/19 07:20 BP 105/52 02/01/19 04:46 Pulse Ox 96 02/01/19 04:46 Intake & Output 01/31/19 02/01/19 02/01/19 18:59 06:59 18:59 Intake Total 600 100 Output Total 100 800 Balance 500 -700 Weight 66.5 kg Intake: Oral 600 100 Output: Urine 100 800 Uretheral (Carver) 100 800 Other: Voiding Method Indwelling Catheter Indwelling Catheter Indwelling Catheter - Labs CBC & Chem 7: 01/31/19 06:43 01/31/19 06:43 Labs: Abnormal Lab Results - Last 24 Hours (Table) 01/29/19 01/30/19 01/31/19 Range/Units 06:54 10:32 06:43 WBC 17.8 H (3.8-10.6) k/uL Hgb 10.5 L (11.4-16.0) gm/dL MCV 77.3 L (80.0-100.0) fL MCH 21.6 L (25.0-35.0) pg MCHC 27.9 L (31.0-37.0) g/dL RDW 21.9 H (11.5-15.5) % Plt Count 143 L (150-450) k/uL Lymphocytes # (Manual) 0.83 L 0.51 L (1.0-4.8) k/uL Monocytes # (Manual) 1.09 H (0-1.0) k/uL Metamyelocytes # (Man) 0.06 H (0) k/uL Nucleated RBCs 145 H 112 H (0-0) /100 WBC ABG pCO2 (35-45) mmHg ABG HCO3 (21-25) mmol/L ABG Total CO2 (19-24) mmol/L POC Glucose (mg/dL) (75-99) mg/dL Total Bilirubin (0.2-1.3) mg/dL Ammonia (<30) umol/L Vitamin B12 (200.0-944.0) pg/mL 01/31/19 01/31/19 01/31/19 Range/Units 06:43 06:43 11:53 WBC (3.8-10.6) k/uL Hgb (11.4-16.0) gm/dL MCV (80.0-100.0) fL MCH (25.0-35.0) pg MCHC (31.0-37.0) g/dL RDW (11.5-15.5) % Plt Count (150-450) k/uL Lymphocytes # (Manual) (1.0-4.8) k/uL Monocytes # (Manual) (0-1.0) k/uL Metamyelocytes # (Man) (0) k/uL Nucleated RBCs (0-0) /100 WBC ABG pCO2 (35-45) mmHg ABG HCO3 (21-25) mmol/L ABG Total CO2 (19-24) mmol/L POC Glucose (mg/dL) (75-99) mg/dL Total Bilirubin 2.5 H (0.2-1.3) mg/dL Ammonia 57 H (<30) umol/L Vitamin B12 945.0 H (200.0-944.0) pg/mL 01/31/19 02/01/19 Range/Units 12:42 02:06 WBC (3.8-10.6) k/uL Hgb (11.4-16.0) gm/dL MCV (80.0-100.0) fL MCH (25.0-35.0) pg MCHC (31.0-37.0) g/dL RDW (11.5-15.5) % Plt Count (150-450) k/uL Lymphocytes # (Manual) (1.0-4.8) k/uL Monocytes # (Manual) (0-1.0) k/uL Metamyelocytes # (Man) (0) k/uL Nucleated RBCs (0-0) /100 WBC ABG pCO2 54 H (35-45) mmHg ABG HCO3 31 H (21-25) mmol/L ABG Total CO2 32 H (19-24) mmol/L POC Glucose (mg/dL) 126 H (75-99) mg/dL Total Bilirubin (0.2-1.3) mg/dL Ammonia (<30) umol/L Vitamin B12 (200.0-944.0) pg/mL Assessment and Plan Plan: Assessment: 1. Acute kidney injury mostly prerenal secondary to cardiorenal syndrome. Renal function stable. Creatinine is 1.56 . as of yesterday Baseline creatinine near 1 from August 2018. No evidence of CKD at this time but will need to monitor outpatient. No hydronephrosis noted on renal ultrasound. 2. Dyspnea secondary to volume overload. Better. Low probability of PE on VQ scan. No evidence of DVT. 3. Diastolic CHF with moderate to severe mitral regurgitation, severe tricuspid regurgitation, moderate to severe pulmonary hypertension. 4. Status post fall. Plan: I will change Lasix to 40 mg orally twice daily. Patient received IV Lasix last night and again this morning. Repeat electrolytes in the morning. Encouraged oral intake. Morning labs pending.
[2019-02-01] MEDS: HEPARIN SODIUM,PORCINE 5,000 UNIT/ML 1 ML VIAL SQ SCH ×2 (09:54→22:31)
[2019-02-01] MEDS: FAMOTIDINE 20 MG TAB PO SCH (09:54)
[2019-02-01] MEDS: ALLOPURINOL 100 MG TAB PO SCH (09:54)
[2019-02-01] MEDS: FUROSEMIDE 10 MG/ML 4 ML VIAL IV SCH ×2 (09:55→22:31)
[2019-02-01] MEDS: LACTULOSE 20 GM/30 ML CUP PO SCH ×3 (09:56→22:35)
[2019-02-01 10:10] LABS: Albumin 3.7 g/dL (3.5-5.0); Calcium 9.1 mg/dL (8.4-10.2); Magnesium 2.2 mg/dL (1.6-2.3); Potassium 3.6 mmol/L (3.5-5.1); Total Protein 6.8 g/dL (6.3-8.2)
[2019-02-01] MEDS: ATENOLOL 12.5 MG TAB PO SCH (10:22)
--- NOTE | 2019-02-01 10:58 | P.PN ---
Subjective This is a pleasant 78-year-old female past medical history significant for paroxysmal atrial fibrillation, hypertension, pulmonary hypertension and chronic diastolic heart failure. She denies history of coronary artery disease or bypass surgery. She follows with Dr. Mcnally. We have been asked to see her in consultation secondary to heart failure. She is seen and examined sitting up in bed receiving a breathing treatment. She denies significant shortness of breath. No chest pain, palpitations, dizziness or nausea/vomiting. Yesterday she had an episode of hypoxia. Underwent VQ scan that was low probability for PE. ABG obtained revealed pH 7.36, pCO2 54, pO2 87 and bicarb of 31. Ammonia level was 50 7 repeat today 40, sodium 144, potassium 3.6, creatinine 1.26 with a GFR 41. Lasix was changed to PO yesterday but changed back to IV per primary team. Currently maintained on amiodarone 100 mg Tuesday, Tuesday and Tuesday, atenolol 12.5 mg daily, Lasix 40 mg IV twice a day and lactulose. Blood pressure 105/52 heart rate 92 maintaining oxygen saturation on nasal cannula. GENERAL: This is a 78-year-old female in no apparent distress at the time of my examination. HEENT: Head is atraumatic, normocephalic. Pupils are equal, round. Sclerae anicteric. Conjunctivae are clear. Mucous membranes of the mouth are moist. Neck is supple. There is mild ongoing jugular venous distention. No carotid bruit is heard. LUNGS: Clear to auscultation no wheezes, rales or rhonchi. No chest wall tenderness is noted on palpation or with deep breathing. Diminished bilaterally. HEART: Irregular rate and rhythm with systolic ejection murmur at all listening points, no rubs or gallops. S1 and S2 heard. EXTREMITIES: No evidence of peripheral edema and no calf tenderness noted. ASSESSMENT Acute on chronic diastolic heart failure and cor pulmonale Acute exacerbation of COPD Hypercapnic respiratory failure Acute T6 and T12 fracture Acute kidney injury Paroxysmal atrial fibrillation not on moth exterminator anticoagulation Pulmonary hypertension Valvular heart disease, mitral regurgitation and tricuspid regurgitation Hypertension PLAN From cardiology's perspective, continue current medical regimen. Resume aldactone when appropriate per nephrology. Agree with PO lasix. Atenolol can be increased as blood pressure tolerates if heart rates increase. Nurse Practitioner note has been reviewed, I agree with a documented findings and plan of care. Patient was seen and examined. Objective - Vital Signs Vital signs: Vital Signs Temp 97.9 F 02/01/19 04:46 Pulse 92 02/01/19 08:55 Resp 18 02/01/19 07:20 BP 105/52 02/01/19 04:46 Pulse Ox 96 02/01/19 04:46 Intake & Output 01/31/19 02/01/19 02/01/19 18:59 06:59 18:59 Intake Total 600 100 Output Total 100 800 Balance 500 -700 Weight 66.5 kg Intake: Oral 600 100 Output: Urine 100 800 Uretheral (Carver) 100 800 Other: Voiding Method Indwelling Catheter Indwelling Catheter Indwelling Catheter - Labs CBC & Chem 7: 01/31/19 06:43 02/01/19 09:11 Labs: Abnormal Lab Results - Last 24 Hours (Table) 01/31/19 01/31/19 01/31/19 Range/Units 06:43 06:43 06:43 Lymphocytes # (Manual) 0.51 L (1.0-4.8) k/uL Nucleated RBCs 112 H (0-0) /100 WBC ABG pCO2 (35-45) mmHg ABG HCO3 (21-25) mmol/L ABG Total CO2 (19-24) mmol/L Carbon Dioxide (22-30) mmol/L BUN (7-17) mg/dL Creatinine (0.52-1.04) mg/dL Glucose (74-99) mg/dL POC Glucose (mg/dL) (75-99) mg/dL Total Bilirubin 2.5 H (0.2-1.3) mg/dL Ammonia (<30) umol/L Vitamin B12 945.0 H (200.0-944.0) pg/mL 01/31/19 01/31/19 02/01/19 Range/Units 11:53 12:42 02:06 Lymphocytes # (Manual) (1.0-4.8) k/uL Nucleated RBCs (0-0) /100 WBC ABG pCO2 54 H (35-45) mmHg ABG HCO3 31 H (21-25) mmol/L ABG Total CO2 32 H (19-24) mmol/L Carbon Dioxide (22-30) mmol/L BUN (7-17) mg/dL Creatinine (0.52-1.04) mg/dL Glucose (74-99) mg/dL POC Glucose (mg/dL) 126 H (75-99) mg/dL Total Bilirubin (0.2-1.3) mg/dL Ammonia 57 H (<30) umol/L Vitamin B12 (200.0-944.0) pg/mL 02/01/ Range/Units 09:11 Lymphocytes # (Manual) (1.0-4.8) k/uL Nucleated RBCs (0-0) /100 WBC ABG pCO2 (35-45) mmHg ABG HCO3 (21-25) mmol/L ABG Total CO2 (19-24) mmol/L Carbon Dioxide 32 H (22-30) mmol/L BUN 53 H (7-17) mg/dL Creatinine 1.26 H (0.52-1.04) mg/dL Glucose 152 H (74-99) mg/dL POC Glucose (mg/dL) (75-99) mg/dL Total Bilirubin 3.0 H (0.2-1.3) mg/dL Ammonia (<30) umol/L Vitamin B12 (200.0-944.0) pg/mL
--- NOTE | 2019-02-01 14:32 | P.PN ---
Subjective 70-year-old female admitted after a mechanical fall also found to have pulmonary edema unfortunately blood pressure is extremely low to do her Lasix today morning she went received IV fluids repeat chest x-ray showing worsening pulmonary edema patient does have elevated JVD patient creatinine did improve with Lasix from 1.7-1.4 patient does have moderate pulmonary hypertension. Baseline creatinine 0.9. Patient although clinically looks better than yesterday 01/30/2019 Patient has minimal or no improvement in her respiratory status patient is mildly negative fluid balance. Nephrology will be consulted. Discussed with the pulmonary. 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 Patient's crackles improved respiratory status improved but still has elevated JVD patient although was switched to oral Lasix and discuss with the per nephrology and probably will switch her to IV Lasix again for 1 more day. Serum creatinine remains stable. 02/01/2019 Patient is still short of breath still has crackles and exam still has elevated JVD may still require Lasix discussed with neurology and the nephrology. Patient remains on IV Lasix at this time. Diuresing well creatinine improved. Patient does have a hepatitis C and chronic liver disease. Constitutional: Denied any fatigue denied any fever. Cardio vascular: denied any chest pain, palpitations Gastrointestinal denied any nausea vomiting Pulmonary: Continues to have shortness of breath Neurologic denied any new focal deficits All inpatient medications were reviewed and appropriate changes in these medications as dictated in the interval history and assessment and plan. Objective - Vital Signs Vital signs: Vital Signs Temp 98.1 F 02/01/19 11:32 Pulse 96 02/01/19 12:57 Resp 21 02/01/19 11:32 BP 120/60 02/01/19 11:32 Pulse Ox 98 02/01/19 11:32 Intake & Output 01/31/19 02/01/19 02/01/19 18:59 06:59 18:59 Intake Total 600 100 Output Total 100 800 Balance 500 -700 Weight 66.5 kg Intake: Oral 600 100 Output: Urine 100 800 Uretheral (Carver) 100 800 Other: Voiding Method Indwelling Catheter Indwelling Catheter Indwelling Catheter - Exam PHYSICAL EXAMINATION: GENERAL: The patient is alert and oriented x3, not in any acute distress. Elderly female HEENT: Pupils are round and equally reacting to light. EOMI. she does have scleral icterus. No conjunctival pallor. Normocephalic, atraumatic. No pharyngeal erythema. No thyromegaly. CARDIOVASCULAR: S1 and S2 present. No murmurs, rubs, or gallops. Patient does have elevated JVD PULMONARY: Bibasilar crackles are appreciated diffuse ABDOMEN: Soft, nontender, nondistended, normoactive bowel sounds. No palpable organomegaly. MUSCULOSKELETAL: No joint swelling or deformity. EXTREMITIES: No cyanosis, clubbing, mild pitting pedal edema NEUROLOGICAL: Gross neurological examination did not reveal any focal deficits. SKIN: No rashes. - Labs CBC & Chem 7: 01/31/19 06:43 02/01/19 09:11 Labs: Abnormal Lab Results - Last 24 Hours (Table) 01/31/19 02/01/19 02/01/19 Range/Units 06:43 02:06 09:11 Carbon Dioxide 32 H (22-30) mmol/L BUN 53 H (7-17) mg/dL Creatinine 1.26 H (0.52-1.04) mg/dL Glucose 152 H (74-99) mg/dL POC Glucose (mg/dL) 126 H (75-99) mg/dL Total Bilirubin 3.0 H (0.2-1.3) mg/dL Ammonia (<30) umol/L Vitamin B12 945.0 H (200.0-944.0) pg/mL 02/01/19 Range/Units 09:11 Carbon Dioxide (22-30) mmol/L BUN (7-17) mg/dL Creatinine (0.52-1.04) mg/dL Glucose (74-99) mg/dL POC Glucose (mg/dL) (75-99) mg/dL Total Bilirubin (0.2-1.3) mg/dL Ammonia 40 H (<30) umol/L Vitamin B12 (200.0-944.0) pg/mL Assessment and Plan Plan: -Mechanical fall and a T12 compression fracture TLSO brace along with the physical therapy occupational therapy discharged to subacute rehabilitation -Congestive heart failure chronic diastolic dysfunction with acute exacerbation patient blood pressure is already low close clinical monitoring IV Lasix still v olume overloaded -thalassemia minor -Hepatitis C and chronic liver disease and cirrhosis from that -Possible asymptomatic bacteriuria: Was started on antibiotics thinking she has urinary tract infection by pulmonology which will be continued for now possibly can be discontinue tomorrow -Hyper ammoniemia secondary to possible liver dysfunction patient will receiving lactulose, improved at [facility] a compared to yesterday. Atrial fibrillation: Presently rate controlled continue with the rate control medications patient is not on any anti-coagulation because of her GI bleed in the past -Acute renal failure: Prerenal azotemia secondary to heart failure exacerbation patient creatinine improved now -Gastroesophageal reflux disease -Osteoarthritis Patient will need pharmacologic GI and DVT prophylaxis
--- NOTE | 2019-02-01 15:49 | P.PN ---
Subjective Progress Note Date: 02/01/19 02/01/2019: Patient seen and examined with her at bedside. The patient's oxygen has been decreased to 4 L nasal cannula. The patient's O2 saturation is 93%. The patient is much more alert and oriented today. She did wear CPAP overnight. The patient has been afebrile. Objective - Vital Signs Vital signs: Vital Signs Temp 98.1 F 02/01/19 11:32 Pulse 83 02/01/19 15:37 Resp 21 02/01/19 15:37 BP 120/60 02/01/19 11:32 Pulse Ox 98 02/01/19 11:32 Intake & Output 01/31/19 02/01/19 02/01/19 18:59 06:59 18:59 Intake Total 600 100 400 Output Total 100 800 803 Balance 500 -700 -403 Weight 66.5 kg Intake: Oral 600 100 400 Output: Urine 100 800 800 Uretheral (Carver) 100 800 800 Stool 3 Other: Voiding Method Indwelling Catheter Indwelling Catheter Indwelling Catheter - Exam Gen.: Patient is alert and oriented 3, much more alert today CV: IRRR, s1/s2, rate controlled, + murmur Lungs: diminished breath sounds bilaterally, coarse Abd: soft, NT/ND, +BS Ext: 2+ edema - Labs CBC & Chem 7: 01/31/19 06:43 02/01/19 09:11 Labs: Abnormal Lab Results - Last 24 Hours (Table) 01/31/19 02/01/19 02/01/19 Range/Units 06:43 02:06 09:11 Carbon Dioxide 32 H (22-30) mmol/L BUN 53 H (7-17) mg/dL Creatinine 1.26 H (0.52-1.04) mg/dL Glucose 152 H (74-99) mg/dL POC Glucose (mg/dL) 126 H (75-99) mg/dL Total Bilirubin 3.0 H (0.2-1.3) mg/dL Ammonia (<30) umol/L Vitamin B12 945.0 H (200.0-944.0) pg/mL 02/01/19 Range/Units 09:11 Carbon Dioxide (22-30) mmol/L BUN (7-17) mg/dL Creatinine (0.52-1.04) mg/dL Glucose (74-99) mg/dL POC Glucose (mg/dL) (75-99) mg/dL Total Bilirubin (0.2-1.3) mg/dL Ammonia 40 H (<30) umol/L Vitamin B12 (200.0-944.0) pg/mL Assessment and Plan Assessment: Acute on chronic hypoxic and hypercapnic respiratory failure Severe pulmonary hypertension, RVSP 71 mmHg Acute exacerbation of moderate COPD, FEV1 68% of predicted Status post fall with T12 compression fracture GALDINO on CPAP at 9 cmH2O Acute exacerbation of diastolic congestive heart failure Valvular heart disease - severe mitral regurgitation, severe tricuspid regurgitation Remote history of DVT UTI Hyperbilirubinemia of unclear etiology Thalassemia minor, chronic anemia at baseline, microcytic Mild thrombocytopenia Hypertension Osteoarthritis Acute kidney injury, cardiorenal syndrome O2 to maintain saturation greater than or equal to 90%, increased to 6L NC Pulmicort Duo nebs CPAP at 9 cmH2O nightly and with naps Steroid taper Incentive spirometry and pulmonary hygiene Antibiotics GI and DVT prophylaxis Continue Revatio for PH, patient should follow up with Dr. Carlos Miranda for UTI Monitor renal function closely Gentle diuresis, I/O, daily weight Cardiology recommendations Pain control Prognosis is poor
[2019-02-01] MEDS ORDERED: ONDANSETRON 4 MG/2 ML VIAL ONE (18:46)
[2019-02-01] MEDS ORDERED: ONDANSETRON 4 MG/2 ML VIAL IVP PRN (18:48)
[2019-02-01] MEDS: MORPHINE SULFATE 2 MG/ML SYRINGE IVP PRN (19:49)
--- NOTE | 2019-02-01 20:35 | CT ---
EXAMINATION TYPE: CT abdomen pelvis wo con DATE OF EXAM: 02/01/2019 COMPARISON: None HISTORY: Abdominal pain CT DLP: 692 mGycm Automated exposure control for dose reduction was used. TECHNIQUE: Helical acquisition of images was performed from the lung bases through the pelvis. FINDINGS: There are bilateral small pleural effusions. Heart is enlarged. There is infiltrate and atelectasis a t the lung bases. There are clips from cholecystectomy. Bile ducts are not dilated. Liver shows no focal defect. 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 There is no evidence of pancreatic mass. There is 3.5 cm density at the sple curt bed that could be a regenerative spleen. Stomach is unremarkable. There is no adrenal mass. Kidneys have normal size. There is no hydronephrosis ureters are not dilate d. There is large amount of retained fecal material in the large bowel. There are numerous diverticula i n the sigmoid colon. I see no definite sign of diverticulitis. There is subcutaneous edema around the abdomen. There is no retroperitoneal adenopathy. There is no ascites. There are some spondylotic adriane nges in the lumbar spine. There is 15% anterior wedging of L2 and T12 vertebra. IMPRESSION: THERE IS EVIDENCE OF CONSTIPATION. MODERATE SIGMOID DIVERTICULOSIS WITHOUT DIVERTICULITIS. NO FREE AI R. SUBCUTANEOUS EDEMA AROUND THE ABDOMEN WITH PLEURAL FLUID AND CARDIOMEGALY CONSISTENT WITH CHRONIC CONGESTIVE HEART FAILURE.
[2019-02-01] MEDS ORDERED: MORPHINE SULFATE 2 MG/ML SYRINGE IVP STA (21:25)
[2019-02-01] MEDS: SERTRALINE 100 MG TAB PO SCH (22:35)
[2019-02-02 07:13] LABS: Calcium 9.3 mg/dL (8.4-10.2); Magnesium 2.1 mg/dL (1.6-2.3); Potassium 3.5 mmol/L (3.5-5.1)
--- NOTE | 2019-02-02 08:10 | P.PN ---
Subjective Patient is seen in follow-up for acute kidney injury. Renal function is improving. Creatinine 0.99 today. Edema has improved. Denies chest pain. Dyspnea better. Currently maintained on IV Lasix 40 mg twice daily. Patient became tachycardic yesterday and was transferred to telemetry floor. Vital signs are stable. General: The patient appeared well nourished and normally developed. HEENT: Head exam is unremarkable. Neck is without jugular venous distension. LUNGS: Lungs are clear to auscultation and percussion. Breath sounds decreased. HEART: Rate and Rhythm are regular. First and second heart sounds normal. No murmurs, rubs or gallops. ABDOMEN: Abdominal exam reveals normal bowel sounds. Non-tender and non- distended. No evidence of peritonitis. EXTREMITITES: No clubbing, cyanosis, or edema. Objective - Vital Signs Vital signs: Vital Signs Temp 98.1 F 02/02/19 04:00 Pulse 96 02/02/19 04:00 Resp 24 02/02/19 04:00 BP 126/68 02/02/19 04:00 Pulse Ox 91 L 02/02/19 04:00 Intake & Output 02/01/19 02/02/19 02/02/19 18:59 06:59 18:59 Intake Total 400 150 Output Total 802 700 Balance -402 -550 Weight 64.5 kg Intake: Oral 400 150 Output: Urine 800 700 Uretheral (Carver) 800 Stool 2 Other: Voiding Method Indwelling Catheter Indwelling Catheter # Voids 2 - Labs CBC & Chem 7: 01/31/19 06:43 02/02/19 05:37 Labs: Abnormal Lab Results - Last 24 Hours (Table) 02/01/19 02/01/19 02/02/19 Range/Units 09:11 09:11 05:37 Carbon Dioxide 32 H 31 H (22-30) mmol/L BUN 53 H 49 H (7-17) mg/dL Creatinine 1.26 H (0.52-1.04) mg/dL Glucose 152 H 149 H (74-99) mg/dL Total Bilirubin 3.0 H (0.2-1.3) mg/dL Ammonia 40 H (<30) umol/L Assessment and Plan Plan: Assessment: 1. Acute kidney injury mostly prerenal secondary to cardiorenal syndrome. Renal function improved. Creatinine 0.99 today. No evidence of CKD at this time but will need to monitor outpatient. No hydronephrosis noted on renal ultrasound. 2. Dyspnea secondary to volume overload. Better. Low probability of PE on VQ scan. No evidence of DVT. 3. Diastolic CHF with moderate to severe mitral regurgitation, severe tricuspid regurgitation, moderate to severe pulmonary hypertension. 4. Status post fall. 5. Subcutaneous edema around the abdomen noted on CT of the abdomen and pelvis done February 01. 6. Mild hyperkalemia secondary to diuresis. 7. Sinus tachycardia. Heart rate 96 this morning. Cardiology following. Plan: Continue with Lasix 40 mg IV twice daily. Can be transitioned over to oral diuretics in the next 24-48 hours. Repeat electrolytes in the morning. Encouraged oral intake. Replace potassium. 40 mEq today.
[2019-02-02] MEDS ORDERED: POTASSIUM CHLORIDE ER 20 MEQ TAB.ER PO STA (08:11)
[2019-02-02] MEDS: BUDESONIDE 0.5 MG/2 ML NEBU INHALATION SCH ×2 (08:22→19:31)
[2019-02-02] MEDS: IPRATROPIUM-ALBUTEROL 3 ML NEB INHALATION SCH ×3 (08:22→19:31)
[2019-02-02] MEDS: ATENOLOL 12.5 MG TAB PO SCH (08:51)
[2019-02-02] MEDS: HEPARIN SODIUM,PORCINE 5,000 UNIT/ML 1 ML VIAL SQ SCH ×2 (08:51→20:08)
[2019-02-02] MEDS: FAMOTIDINE 20 MG TAB PO SCH (08:51)
[2019-02-02] MEDS: AMIODARONE 100 MG TAB PO SCH (08:51)
[2019-02-02] MEDS: ALLOPURINOL 100 MG TAB PO SCH (08:51)
[2019-02-02] MEDS: FUROSEMIDE 10 MG/ML 4 ML VIAL IV SCH ×2 (08:51→20:08)
[2019-02-02] MEDS: LACTULOSE 20 GM/30 ML CUP PO SCH ×3 (08:53→21:31)
[2019-02-02] MEDS ORDERED: NA PHOS,M-B/NA PHOS,DI-BA 133 ML ENEMA RECTAL STA (10:02)
--- NOTE | 2019-02-02 12:01 | P.GSCN ---
History of Present Illness Consult date: 02/02/19 Reason for Consult: abdominal pain Requesting physician: Prabhjot Atkinson History of present illness: CHIEF COMPLAINT: abdominal pain HISTORY OF PRESENT ILLNESS: 78-year-old female admitted to the hospital secondary to CHF. General surgery was consulted for evaluation of abdominal pain. Patient examined at the bedside with Dr. Mendez. Patient denies abdominal pain this morning. She denies nausea or vomiting. Tolerating diet. PAST MEDICAL HISTORY: See list. PAST SURGICAL HISTORY: See list. SOCIAL HISTORY: No illicit drug use. REVIEW OF SYSTEMS: CONSTITUTIONAL: Denies fever or chills. HEENT: Denies blurred vision, vision changes, or eye pain. Denies hemoptysis CARDIOVASCULAR: Denies chest pain or pressure. RESPIRATORY: No shortness of breath. GASTROINTESTINAL: Refer to HPI for pertinent findings HEMATOLOGIC: Denies bleeding disorders. GENITOURINARY: Denies any blood in urine. SKIN: Denies pruitis. Denies rash. PHYSICAL EXAM: VITAL SIGNS: Reviewed. GENERAL: Well-developed in no acute distress. HEENT: No sclera icterus. Extraocular movements grossly intact. Moist buccal mucosa. Head is atraumatic, normocephalic. ABDOMEN: Soft. Nondistended. Nontender. NEUROLOGIC: Alert and oriented. Cranial nerves II through XII grossly intact. IMAGING: CT abdomen and pelvis: Evidence of constipation. Large amount of fecal material in the large bowel. Moderate sigmoid diverticulosis without diverticulitis. ASSESSMENT: 1. Abdominal pain, resolved 2. Constipation 3. Diverticulosis without evidence of diverticulitis PLAN: 1. Continue diet as tolerated 2. Fleets enema x 1 3. Continue Lactulose 4. No surgical intervention recommended Nurse practitioner note has been reviewed by physician. Signing provider agrees with the documented findings, assessment, and plan of care. Past Medical History Past Medical History: Atrial Fibrillation, Heart Failure, Deep Vein Thrombosis (DVT), GERD/Reflux, Hypertension, Osteoarthritis (OA), Syncope Additional Past Medical History / Comment(s): Chronic atrial fibrillation, congestion heart failure, remote history of DVT, hypertension, osteoarthritis, depression, cataracts, history of septicemia, secondary pulmonary hypertension with evidence of moderate degree of mitral regurgitation based on the previous echocardiogram had also noted a PA pressure of 51, diverticulosis, chronic anemia, hard of hearing, falastenia blood disorder History of Any Multi-Drug Resistant Organisms: None Reported Past Surgical History: Cholecystectomy, Hysterectomy Additional Past Surgical History / Comment(s): SPLENECTOMY, VARICOSE VEIN SX TAWANNA LEGS, TAWANNA KNEE REPLACMENTS, CATARACTS Past Anesthesia/Blood Transfusion Reactions: Previous Problems w/ Anesthesia Additional Past Anesthesia/Blood Transfusion Reaction / Comm: AGE 26 RECEIVED TO MUCH AND IT TOOK LONGER TO WAKE UP. SEVERAL BLOOD TRANSFUSIONS IN PAST. Past Psychological History: Depression Additional Psychological History / Comment(s): PT IS INDEPENDANT. LIVES W/ IN SINGLE STORY HOME THAT HAS 2 PORCH STEPS. HAS 3 DOGS AND 2 CATS, NO HOME CARE SERVICES RECIEVED. HAS CPAP MACHINE. Smoking Status: Never smoker Past Alcohol Use History: None Reported Past Drug Use History: None Reported - Past Family History Mother Family Medical History: Cancer Additional Family Medical History / Comment(s): COLON CANCER Father Additional Family Medical History / Comment(s): IN MVA(ALCOHOL RELATED) Medications and Allergies Home Medications Medication Instructions Recorded Confirmed Type ALPRAZolam [Xanax] 0.5 mg PO DAILY PRN 06/28/17 01/28/19 History Amiodarone [Cordarone] 100 mg PO MOWEFR 06/28/17 01/28/19 History Ondansetron HCl [Zofran] 8 mg PO Q8HR PRN 06/28/17 01/28/19 History Potassium Chloride [K-Tab ER] 10 meq PO BID 06/28/17 01/28/19 History Spironolactone [Aldactone] 12.5 mg PO DAILY 06/28/17 01/28/19 History Sertraline HCl [Zoloft] 100 mg PO HS 06/29/17 01/28/19 History Sildenafil Citrate [Sildenafil] 20 mg PO BID 06/29/17 01/28/19 History Furosemide [Lasix] 40 mg PO DAILY #0 06/30/17 01/28/19 Rx Allopurinol [Zyloprim] 100 mg PO DAILY 01/28/19 01/28/19 History Atenolol [Tenormin] 50 mg PO DAILY 01/28/19 01/28/19 History Folic Acid 1 mg PO DAILY 01/28/19 01/28/19 History Allergies Allergy/AdvReac Type Severity Reaction Status Date / Time Iodinated Contrast- Oral and Allergy Severe Anaphylaxis Verified 01/28/19 08:15 IV Dye Surgical - Exam Vital Signs Temp Pulse Resp BP Pulse Ox 97.7 F 89 16 109/62 94 L 01/28/19 07:03 01/28/19 07:03 01/28/19 07:03 01/28/19 07:03 01/28/19 07:03 Results - Labs 01/31/19 06:43 02/02/19 05:37 Abnormal Lab Results - Last 24 Hours (Table) 02/02/19 Range/Units 05:37 Carbon Dioxide 31 H (22-30) mmol/L BUN 49 H (7-17) mg/dL Glucose 149 H (74-99) mg/dL Diabetes panel 02/02/19 Range/Units 05:37 Sodium 145 (137-145) mmol/L Potassium 3.5 (3.5-5.1) mmol/L Chloride 105 (98-107) mmol/L Carbon Dioxide 31 H (22-30) mmol/L BUN 49 H (7-17) mg/dL Creatinine 0.99 (0.52-1.04) mg/dL Glucose 149 H (74-99) mg/dL Calcium 9.3 (8.4-10.2) mg/dL Calcium panel 02/02/19 Range/Units 05:37 Calcium 9.3 (8.4-10.2) mg/dL Pituitary panel 02/02/19 Range/Units 05:37 Sodium 145 (137-145) mmol/L Potassium 3.5 (3.5-5.1) mmol/L Chloride 105 (98-107) mmol/L Carbon Dioxide 31 H (22-30) mmol/L BUN 49 H (7-17) mg/dL Creatinine 0.99 (0.52-1.04) mg/dL Glucose 149 H (74-99) mg/dL Calcium 9.3 (8.4-10.2) mg/dL Adrenal panel 02/02/19 Range/Units 05:37 Sodium 145 (137-145) mmol/L Potassium 3.5 (3.5-5.1) mmol/L Chloride 105 (98-107) mmol/L Carbon Dioxide 31 H (22-30) mmol/L BUN 49 H (7-17) mg/dL Creatinine 0.99 (0.52-1.04) mg/dL Glucose 149 H (74-99) mg/dL Calcium 9.3 (8.4-10.2) mg/dL
[2019-02-02] MEDS ORDERED: POLYETHYLENE GLYCOL 3350 17 GM POWD.PACK PO PRN (13:51)
--- NOTE | 2019-02-02 13:53 | P.PN ---
Subjective 70-year-old female admitted after a mechanical fall also found to have pulmonary edema unfortunately blood pressure is extremely low to do her Lasix today morning she went received IV fluids repeat chest x-ray showing worsening pulmonary edema patient does have elevated JVD patient creatinine did improve with Lasix from 1.7-1.4 patient does have moderate pulmonary hypertension. Baseline creatinine 0.9. Patient although clinically looks better than yesterday 01/30/2019 Patient has minimal or no improvement in her respiratory status patient is mildly negative fluid balance. Nephrology will be consulted. Discussed with the pulmonary. 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 Patient's crackles improved respiratory status improved but still has elevated JVD patient although was switched to oral Lasix and discuss with the per nephrology and probably will switch her to IV Lasix again for 1 more day. Serum creatinine remains stable. 02/01/2019 Patient is still short of breath still has crackles and exam still has elevated JVD may still require Lasix discussed with neurology and the nephrology. Patient remains on IV Lasix at this time. Diuresing well creatinine improved. Patient does have a hepatitis C and chronic liver disease. 02/02/2019 Her overall clinical condition did improve compared to yesterday, serum creatinine improved patient still has significant crackles and significantly elevated JVD continue with the Lasix patient had an ultrasound of the abdomen which was suspicious for a complex cyst in the pancreas or the CAT scan did not show any evidence of pancreatic mass. Patient appears to be constipated will start her on bowel regimen Constitutional: Denied any fatigue denied any fever. Cardio vascular: denied any chest pain, palpitations Gastrointestinal denied any nausea vomiting Pulmonary: Continues to have shortness of breath Neurologic denied any new focal deficits All inpatient medications were reviewed and appropriate changes in these medications as dictated in the interval history and assessment and plan. Objective - Vital Signs Vital signs: Vital Signs Temp 97.9 F 02/02/19 11:43 Pulse 86 02/02/19 13:27 Resp 20 02/02/19 11:43 BP 119/60 02/02/19 11:43 Pulse Ox 90 L 02/02/19 11:43 Intake & Output 02/01/19 02/02/19 02/02/19 18:59 06:59 18:59 Intake Total 400 150 Output Total 802 700 Balance -402 -550 Weight 64.5 kg Intake: Oral 400 150 Output: Urine 800 700 Uretheral (Carver) 800 Stool 2 Other: Voiding Method Indwelling Catheter Indwelling Catheter Indwelling Catheter # Voids 2 - Exam PHYSICAL EXAMINATION: GENERAL: The patient is alert and oriented x3, not in any acute distress. Elderly female HEENT: Pupils are round and equally reacting to light. EOMI. she does have scleral icterus. No conjunctival pallor. Normocephalic, atraumatic. No pharyngeal erythema. No thyromegaly. CARDIOVASCULAR: S1 and S2 present. No murmurs, rubs, or gallops. Patient does have elevated JVD PULMONARY: Bibasilar crackles are appreciated diffuse ABDOMEN: Soft, nontender, nondistended, normoactive bowel sounds. No palpable o rganomegaly. MUSCULOSKELETAL: No joint swelling or deformity. EXTREMITIES: No cyanosis, clubbing, mild pitting pedal edema NEUROLOGICAL: Gross neurological examination did not reveal any focal deficits. SKIN: No rashes. - Labs CBC & Chem 7: 01/31/19 06:43 02/02/19 05:37 Labs: Abnormal Lab Results - Last 24 Hours (Table) 02/02/19 Range/Units 05:37 Carbon Dioxide 31 H (22-30) mmol/L BUN 49 H (7-17) mg/dL Glucose 149 H (74-99) mg/dL Assessment and Plan Plan: -Mechanical fall and a T12 compression fracture TLSO brace along with the physical therapy occupational therapy discharged to subacute rehabilitation -Acute hypoxic respiratory failure secondary to Congestive heart failure chronic diastolic dysfunction with acute exacerbation patient blood pressure is already low close clinical monitoring IV Lasix still volume overloaded -thalassemia minor -Hepatitis C and chronic liver disease and cirrhosis from that -Possible asymptomatic bacteriuria: Was started on antibiotics thinking she has urinary tract infection -Hyperammoniemia secondary to possible liver dysfunction patient will receiving lactulose, improved now Atrial fibrillation: Presently rate controlled continue with the rate control medications patient is not on any anti-coagulation because of her GI bleed in the past -Acute renal failure: Prerenal azotemia secondary to heart failure exacerbation patient creatinine improved now -Gastroesophageal reflux disease -Osteoarthritis Patient will need pharmacologic GI and DVT prophylaxis
[2019-02-02 15:23] VITALS: BMI 27.7
[2019-02-02 15:37] LABS: Anisocytosis Moderate; HCT 37.5 % (34.0-46.0); HGB 11.1 gm/dL (11.4-16.0); Hypochromasia Marked; MCH 22.3 pg (25.0-35.0); MCHC 29.7 g/dL (31.0-37.0); MCV 75.2 fL (80.0-100.0); Mean Platelet Volume 7.5; Microcytosis Moderate; Platelet Count 105 k/uL (150-450); Poikilocytosis Moderate; RBC 4.98 m/uL (3.80-5.40); RDW 21.2 % (11.5-15.5)
--- NOTE | 2019-02-02 16:05 | P.PN ---
Subjective Progress Note Date: 02/02/19 02/02/2018: Patient seen and examined. Patient is sitting up in bed on CPAP. The patient states that she is trying to take a nap. She is asking for dalia grace. The patient has been afebrile and hemodynamically stable. Objective - Vital Signs Vital signs: Vital Signs Temp 97.5 F L 02/02/19 15:36 Pulse 107 H 02/02/19 15:36 Resp 14 02/02/19 15:36 BP 108/57 02/02/19 15:36 Pulse Ox 98 02/02/19 15:36 Intake & Output 02/01/19 02/02/19 02/02/19 18:59 06:59 18:59 Intake Total 400 150 Output Total 802 700 Balance -402 -550 Weight 64.5 kg 64.5 kg Intake: Oral 400 150 Output: Urine 800 700 Uretheral (Carver) 800 Stool 2 Other: Voiding Method Indwelling Catheter Indwelling Catheter Indwelling Catheter # Voids 2 - Exam Gen.: Patient is alert and oriented 3, much more alert today CV: IRRR, s1/s2, rate controlled, + murmur Lungs: diminished breath sounds bilaterally, coarse Abd: soft, NT/ND, +BS Ext: 2+ edema - Labs CBC & Chem 7: 02/02/19 15:11 02/02/19 05:37 Labs: Abnormal Lab Results - Last 24 Hours (Table) 02/02/19 02/02/19 Range/Units 05:37 15:11 WBC 11.3 H (3.8-10.6) k/uL Hgb 11.1 L (11.4-16.0) gm/dL MCV 75.2 L (80.0-100.0) fL MCH 22.3 L (25.0-35.0) pg MCHC 29.7 L (31.0-37.0) g/dL RDW 21.2 H (11.5-15.5) % Plt Count 105 L (150-450) k/uL Carbon Dioxide 31 H (22-30) mmol/L BUN 49 H (7-17) mg/dL Glucose 149 H (74-99) mg/dL Assessment and Plan Assessment: Acute on chronic hypoxic and hypercapnic respiratory failure Severe pulmonary hypertension, RVSP 71 mmHg Acute exacerbation of moderate COPD, FEV1 68% of predicted Status post fall with T12 compression fracture GALDINO on CPAP at 9 cmH2O Acute exacerbation of diastolic congestive heart failure Valvular heart disease - severe mitral regurgitation, severe tricuspid regurgitation Remote history of DVT UTI Hyperbilirubinemia of unclear etiology Thalassemia minor, chronic anemia at baseline, microcytic Mild thrombocytopenia Hypertension Osteoarthritis Acute kidney injury, cardiorenal syndrome O2 to maintain saturation greater than or equal to 90%, increased to 6L NC Pulmicort Duo nebs CPAP at 9 cmH2O nightly and with naps Incentive spirometry and pulmonary hygiene Antibiotics GI and DVT prophylaxis Continue Revatio for PH, patient should follow up with Dr. Carlos Miranda for UTI Monitor renal function closely Gentle diuresis, I/O, daily weight Cardiology recommendations Pain control Prognosis is poor
[2019-02-02 16:15] LABS: Band Neutrophils % 2 %; Lymphocytes # (M) 0.56 k/uL (1.0-4.8); Monocytes # (M) 0.84 k/uL (0-1.0); Neutrophils % (M) 83 %; Nucleated Red Blood Cells 21 /100 WBC (0-0); Poikilocytosis (M) Present; Target Cells Present; Total Cells Counted 200; WBC 9.3 k/uL (3.8-10.6)
[2019-02-02] MEDS: SERTRALINE 100 MG TAB PO SCH (20:08)
[2019-02-02] MEDS ORDERED: SENNOSIDES-DOCUSATE SODIUM 1 EACH TAB PO SCH (21:00)
[2019-02-03 06:48] LABS: Calcium 8.9 mg/dL (8.4-10.2); Magnesium 2.1 mg/dL (1.6-2.3); Potassium 3.8 mmol/L (3.5-5.1)
[2019-02-03] MEDS: BUDESONIDE 0.5 MG/2 ML NEBU INHALATION SCH ×2 (08:04→19:55)
[2019-02-03] MEDS: IPRATROPIUM-ALBUTEROL 3 ML NEB INHALATION SCH ×3 (08:04→19:55)
[2019-02-03] MEDS: FUROSEMIDE 10 MG/ML 4 ML VIAL IV SCH ×2 (08:19→20:20)
[2019-02-03] MEDS: MORPHINE SULFATE 2 MG/ML SYRINGE IVP PRN (08:20)
[2019-02-03] MEDS: HEPARIN SODIUM,PORCINE 5,000 UNIT/ML 1 ML VIAL SQ SCH ×2 (08:22→20:20)
[2019-02-03] MEDS: ATENOLOL 12.5 MG TAB PO SCH (08:22)
[2019-02-03] MEDS: ALLOPURINOL 100 MG TAB PO SCH (08:22)
[2019-02-03] MEDS: FAMOTIDINE 20 MG TAB PO SCH (08:22)
[2019-02-03] MEDS: LACTULOSE 20 GM/30 ML CUP PO SCH ×3 (08:22→23:25)
--- NOTE | 2019-02-03 09:56 | P.PN ---
Subjective 70-year-old female admitted after a mechanical fall also found to have pulmonary edema unfortunately blood pressure is extremely low to do her Lasix today morning she went received IV fluids repeat chest x-ray showing worsening pulmonary edema patient does have elevated JVD patient creatinine did improve with Lasix from 1.7-1.4 patient does have moderate pulmonary hypertension. Baseline creatinine 0.9. Patient although clinically looks better than yesterday 01/30/2019 Patient has minimal or no improvement in her respiratory status patient is mildly negative fluid balance. Nephrology will be consulted. Discussed with the pulmonary. 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 Patient's crackles improved respiratory status improved but still has elevated JVD patient although was switched to oral Lasix and discuss with the per nephrology and probably will switch her to IV Lasix again for 1 more day. Serum creatinine remains stable. 02/01/2019 Patient is still short of breath still has crackles and exam still has elevated JVD may still require Lasix discussed with neurology and the nephrology. Patient remains on IV Lasix at this time. Diuresing well creatinine improved. Patient does have a hepatitis C and chronic liver disease. 02/02/2019 Her overall clinical condition did improve compared to yesterday, serum creatinine improved patient still has significant crackles and significantly elevated JVD continue with the Lasix patient had an ultrasound of the abdomen which was suspicious for a complex cyst in the pancreas or the CAT scan did not show any evidence of pancreatic mass. Patient appears to be constipated will start her on bowel regimen 02/03/2019 Patient is a bit drowsy because she received morphine although her overall clinical condition improved and patient still has minimal crackles elevated JVD will remain on IV Lasix nephrology valid the patient discussed with nephrology. Constitutional: Denied any fatigue denied any fever. Cardio vascular: denied any chest pain, palpitations Gastrointestinal denied any nausea vomiting Pulmonary: Continues to have shortness of breath Neurologic denied any new focal deficits All inpatient medications were reviewed and appropriate changes in these medications as dictated in the interval history and assessment and plan. Objective - Vital Signs Vital signs: Vital Signs Temp 98.1 F 02/03/19 08:00 Pulse 100 02/03/19 08:21 Resp 20 02/03/19 08:00 BP 118/62 02/03/19 08:00 Pulse Ox 97 02/03/19 08:07 Intake & Output 02/02/19 02/03/19 02/03/19 18:59 06:59 18:59 Intake Total 230 Output Total 600 710 Balance -600 -710 230 Weight 64.5 kg 64.4 kg Intake: Oral 230 Output: Urine 600 710 Other: Voiding Method Indwelling Catheter Indwelling Catheter Indwelling Catheter # Bowel Movements 1 - Exam PHYSICAL EXAMINATION: GENERAL: The patient is alert and oriented x3, not in any acute distress. Elderly female HEENT: Pupils are round and equally reacting to light. EOMI. she does have scleral icterus. No conjunctival pallor. Normocephalic, atraumatic. No pharyngeal erythema. No thyromegaly. CARDIOVASCULAR: S1 and S2 present. No murmurs, rubs, or gallops. Patient does have elevated JVD PULMONARY: Bibasilar crackles are appreciated diffuse ABDOMEN: Soft, nontender, nondistended, normoactive bowel sounds. No palpable organomegaly. MUSCULOSKELETAL: No joint swelling or deformity. EXTREMITIES: No cyanosis, clubbing, mild pitting pedal edema NEUROLOGICAL: Gross neurological examination did not reveal any focal deficits. SKIN: No rashes. - Labs CBC & Chem 7: 02/02/19 15:11 02/03/19 05:49 Labs: Abnormal Lab Results - Last 24 Hours (Table) 02/02/19 02/03/19 Range/Units 15:11 05:49 Hgb 11.1 L (11.4-16.0) gm/dL MCV 75.2 L (80.0-100.0) fL MCH 22.3 L (25.0-35.0) pg MCHC 29.7 L (31.0-37.0) g/dL RDW 21.2 H (11.5-15.5) % Plt Count 105 L (150-450) k/uL Neutrophils # (Manual) 7.90 H (1.3-7.7) k/uL Lymphocytes # (Manual) 0.56 L (1.0-4.8) k/uL Nucleated RBCs 21 H (0-0) /100 WBC Carbon Dioxide 35 H (22-30) mmol/L BUN 47 H (7-17) mg/dL Assessment and Plan Plan: -Mechanical fall and a T12 compression fracture TLSO brace along with the physical therapy occupational therapy discharged to subacute rehabilitation -Acute hypoxic respiratory failure secondary to Congestive heart failure chronic diastolic dysfunction with acute exacerbation patient blood pressure is already low close clinical monitoring IV Lasix still volume overloaded -thalassemia minor -Hepatitis C and chronic liver disease and cirrhosis from that -Possible asymptomatic bacteriuria: Was started on antibiotics thinking she has urinary tract infection , antibiotics will be discussed uterine -Hyperammoniemia secondary to possible liver dysfunction patient will receiving lactulose, improved now Atrial fibrillation: Presently rate controlled continue with the rate control medications patient is not on any anti-coagulation because of her GI bleed in the past -Acute renal failure: Prerenal azotemia secondary to heart failure exacerbation patient creatinine improved now -Gastroesophageal reflux disease -Osteoarthritis Patient will need pharmacologic GI and DVT prophylaxis
--- NOTE | 2019-02-03 11:58 | PN ---
PROGRESS NOTE The patient is seen for followup for acute kidney injury. Her renal function continues to improve. Creatinine is down to 0.9 from 1.5 on initial admission. The patient has been diuresed. She is currently maintained on 40 mg of Lasix IV q.12 hours. She has had good urine output. She has an indwelling Carver catheter. A 24 hour urine output was 1.3 L. Overall, patient states she is feeling better. PHYSICAL EXAMINATION: Blood pressure is 118/62, heart rate 94 per minute. She is afebrile. Examination of the heart S1, S2. Examination of the lungs, decreased breath sounds bases. Abdomen is soft, nontender. Exam of lower extremities shows edema 1+ bilaterally. Chronic skin changes are noted. PARADICHLOROBENZENE TENDER exam is grossly intact. LABS SHOW: Sodium of 143, potassium 3.8, chloride 104, CO2 is 35, BUN 47, serum creatinine 0.96. ASSESSMENT: 1. Acute kidney injury, cardiorenal, currently improved. The patient is being diuresed. I will continue with the current dose of IV Lasix. 2. Diastolic heart failure with moderate to severe mitral regurgitation and severe tricuspid regurgitation with moderate to severe pulmonary hypertension. 3. Lower extremity edema also secondary to elevated right heart pressures along with overall fluid overload. 4. Status post fall. 5. Mild hypokalemia secondary to diuretics, status post replacement. PLAN: Continue with Lasix. Repeat labs in a.m.. MMODL / IJN: [id number] /
--- NOTE | 2019-02-03 14:03 | P.PN ---
Subjective Progress Note Date: 02/03/19 Principal diagnosis: Acute on chronic hypercarbic And hypoxic history failure, severe pulmonary hypertension, COPD, obstructive sleep apnea, congestive heart failure, severe mitral regurgitation and tricuspid regurgitation, hypertension hypertensive cardiovascular disease, thrombocytopenia, 02/03/2019, patient seen and evaluated examined during the rounds, she has received morphine complaining of some tiredness respiratory status stable 70-year-old female admitted after a mechanical fall also found to have pulmonary edema unfortunately blood pressure is extremely low to do her Lasix today morning she went received IV fluids repeat chest x-ray showing worsening pulmonary edema patient does have elevated JVD patient creatinine did improve with Lasix from 1.7-1.4 patient does have moderate pulmonary hypertension. Baseline creatinine 0.9. Patient although clinically looks better than yesterday Objective - Vital Signs Vital signs: Vital Signs Temp 98 F 02/03/19 11:55 Pulse 110 H 02/03/19 13:54 Resp 19 02/03/19 11:55 BP 112/57 02/03/19 11:55 Pulse Ox 95 02/03/19 11:55 Intake & Output 02/02/19 02/03/19 02/03/19 18:59 06:59 18:59 Intake Total 230 Output Total 600 710 Balance -600 -710 230 Weight 64.5 kg 64.4 kg Intake: Oral 230 Output: Urine 600 710 Other: Voiding Method Indwelling Catheter Indwelling Catheter Indwelling Catheter # Bowel Movements 1 - Exam GENERAL: The patient is alert and oriented x3, not in any acute distress. Elderly female HEENT: Pupils are round and equally reacting to light. EOMI. she does have scleral icterus. No conjunctival pallor. Normocephalic, atraumatic. No pharyngeal erythema. No thyromegaly. CARDIOVASCULAR: S1 and S2 present. No murmurs, rubs, or gallops. Patient does have elevated JVD PULMONARY: Bibasilar crackles are appreciated diffuse ABDOMEN: Soft, nontender, nondistended, normoactive bowel sounds. No palpable organomegaly. MUSCULOSKELETAL: No joint swelling or deformity. EXTREMITIES: No cyanosis, clubbing, mild pitting pedal edema NEUROLOGICAL: Gross neurological examination did not reveal any focal deficits. SKIN: No rashes. - Labs CBC & Chem 7: 02/02/19 15:11 02/03/19 05:49 Labs: Abnormal Lab Results - Last 24 Hours (Table) 02/02/19 02/03/19 Range/Units 15:11 05:49 Hgb 11.1 L (11.4-16.0) gm/dL MCV 75.2 L (80.0-100.0) fL MCH 22.3 L (25.0-35.0) pg MCHC 29.7 L (31.0-37.0) g/dL RDW 21.2 H (11.5-15.5) % Plt Count 105 L (150-450) k/uL Neutrophils # (Manual) 7.90 H (1.3-7.7) k/uL Lymphocytes # (Manual) 0.56 L (1.0-4.8) k/uL Nucleated RBCs 21 H (0-0) /100 WBC Carbon Dioxide 35 H (22-30) mmol/L BUN 47 H (7-17) mg/dL Assessment and Plan Assessment: Status post fall with T12 compression fracture Acute on chronic hypoxic respiratory failure Acute diastolic heart failure Chronic liver disease and hepatitis C Pulmonary hypertension Atrial fibrillation Plan: Continue gentle diuresis Continue supplemental oxygen Breathing treatments with DuoNeb and Pulmicort CPAP therapy Dewitt and when necessary during the day Deep breathing sense incentive spirometry Continue antibiotics Continue therapy for portal hypertension Time with Patient: Greater than 30
--- NOTE | 2019-02-03 17:40 | P.PN ---
Subjective Progress Note Date: 02/03/19 CHIEF COMPLAINT: Abdominal pain HISTORY OF PRESENT ILLNESS: The patient is a 78-year-old female who presents with severe constipation including diverticulosis. Yesterday she had a enema per her recollection. She is having bowel movements. Abdominal pain has improved. ROS: No reports of nausea and vomiting. No fevers or chills. PHYSICAL EXAM: VITAL SIGNS: Reviewed CONSTITUTIONAL: Well developed and in no acute distress. EYES: Conjuctivae without sclera icterus. Extraocular movements grossly intact. HEAD, EARS, NOSE, THROAT: Moist buccal mucosa. Head is atraumatic, normocephalic. Hears conversational speech. No nasal drainage. NECK: Supple. No thyroidomegaly. RESPIRATORY: Non-labored respirations and equal bilateral excursions. CARDIOVASCULAR: Palpable 2+ radial pulses. Regular rate. Regular rhythm. ABDOMEN: Soft. Minimal distention. No diffuse peritonitis. MUSCULOSKELETAL: No gross deformity of the lower extremities noted. No clubbing. No cyanosis. SKIN: Good skin turgor. Well perfused. NEUROLOGIC: Cranial nerves I through XII grossly intact. No focal or later alizing signs. PSYCH: Alert and oriented to person CLINCAL LABS: White blood cell count normal ASSESSMENT: 1. Abdominal distention with severe constipation PLAN: 1. She is having bowel movements. Ideally liquid diet in the interim 2. No surgical management at this time. 3. Also recommend bowel regimen to include milk of magnesia, lactulose, Colace Objective - Vital Signs Vital signs: Vital Signs Temp 98.2 F 02/03/19 16:00 Pulse 104 H 02/03/19 16:00 Resp 18 02/03/19 16:00 BP 102/54 02/03/19 16:00 Pulse Ox 93 L 02/03/19 16:00 Intake & Output 02/02/19 02/03/19 02/03/19 18:59 06:59 18:59 Intake Total 510 Output Total 600 710 550 Balance -600 -710 -40 Weight 64.5 kg 64.4 kg Intake: Intake, IV Titration 50 Amount cefTRIAXone 1 gm In 50 Sodium Chloride 0.9% 50 ml @ 100 mls/hr IVPB Q24HR [facility] Rx#:[id number] Oral 460 Output: Urine 600 710 550 Other: Voiding Method Indwelling Catheter Indwelling Catheter Indwelling Catheter # Voids 1 # Bowel Movements 1 1 - Labs CBC & Chem 7: 02/02/19 15:11 02/03/19 05:49 Labs: Abnormal Lab Results - Last 24 Hours (Table) 02/03/19 Range/Units 05:49 Carbon Dioxide 35 H (22-30) mmol/L BUN 47 H (7-17) mg/dL
[2019-02-03] MEDS ORDERED: ATENOLOL 12.5 MG TAB PO STA (18:03)
[2019-02-03] MEDS: MAGNESIUM HYDROXIDE 2,400 MG/10 ML CUP PO SCH (20:20)
[2019-02-03] MEDS: DOCUSATE 100 MG CAP PO SCH (20:21)
[2019-02-03] MEDS: SERTRALINE 100 MG TAB PO SCH (20:21)
[2019-02-04] MEDS: traMADol 50 MG TAB PO PRN (01:29)
[2019-02-04 06:03] VITALS: RESP 18
[2019-02-04 07:38] LABS: Calcium 8.9 mg/dL (8.4-10.2); Potassium 3.7 mmol/L (3.5-5.1)
[2019-02-04] MEDS: IPRATROPIUM-ALBUTEROL 3 ML NEB INHALATION SCH ×3 (08:36→20:27)
[2019-02-04] MEDS: BUDESONIDE 0.5 MG/2 ML NEBU INHALATION SCH ×2 (08:36→20:27)
[2019-02-04] MEDS: DOCUSATE 100 MG CAP PO SCH ×2 (08:56→19:57)
[2019-02-04] MEDS: ALLOPURINOL 100 MG TAB PO SCH (08:56)
[2019-02-04] MEDS: FAMOTIDINE 20 MG TAB PO SCH (08:56)
[2019-02-04] MEDS: ATENOLOL 12.5 MG TAB PO SCH (08:56)
[2019-02-04] MEDS: LACTULOSE 20 GM/30 ML CUP PO SCH ×3 (08:57→21:47)
[2019-02-04] MEDS: HEPARIN SODIUM,PORCINE 5,000 UNIT/ML 1 ML VIAL SQ SCH ×2 (08:57→19:57)
[2019-02-04] MEDS: FUROSEMIDE 10 MG/ML 4 ML VIAL IV SCH ×2 (08:57→19:57)
[2019-02-04] MEDS: MAGNESIUM HYDROXIDE 2,400 MG/10 ML CUP PO SCH ×2 (08:57→19:58)
--- NOTE | 2019-02-04 11:15 | XR ---
EXAMINATION TYPE: XR chest 1V DATE OF EXAM: 02/04/2019 HISTORY: chf. REFERENCE: Previous study dated 01/31/2019. FINDINGS: The heart is enlarged. There is vascular congestion and mild edema. There are small, bilate ral effusions. The overall appearance has improved somewhat. IMPRESSION: IMPROVING CHANGES OF PULMONARY EDEMA.
--- NOTE | 2019-02-04 11:29 | PN ---
PROGRESS NOTE Patient is seen for followup for acute kidney injury. Her renal function has improved significantly. Serum creatinine continues to improve. Patient is maintained on IV Lasix. Volume status has also been improving. Her weight, however, is up slightly today. 24 hour urine output documented at 1.8 L. PHYSICAL EXAMINATION: This morning, blood pressure is 119/70, heart rate 110 per minute. She is afebrile. Examination of the heart S1, S2. Examination of the lungs bilateral breath sounds are heard. Abdomen is soft, nontender. Examination of lower extremities shows edema 1+ bilaterally with chronic skin changes noted. ROOF SLATER exam is grossly intact. LABS: Reveal sodium of 141, potassium 3.7, BUN 41, serum creatinine 0.89. ASSESSMENT: 1. Acute kidney injury, cardiorenal. Renal function continues to improve. Patient is maintained on IV Lasix which we can continue until discharge. 2. Diastolic heart failure with moderate to severe mitral regurgitation. Severe mitral regurg and moderate to severe pulmonary hypertension. 3. Lower extremity edema associated with fluid overload as well as elevated right heart pressures. 4. Hypokalemia secondary to diuretics, status post replacement. 5. Constipation status post evaluation by General Surgery. PLAN: Switch to oral Lasix at the time of discharge. Check chest x-ray today. So far, patient's renal function continues to improve with the IV diuretics. She should be discharged on Lasix 40 mg b.i.d. with close followup as outpatient for monitoring of volume status. MMODL / IJN: [id number] /
--- NOTE | 2019-02-04 11:45 | P.PN ---
Subjective Progress Note Date: 02/04/19 This is a pleasant 78-year-old female past medical history significant for paroxysmal atrial fibrillation, hypertension, pulmonary hypertension and chronic diastolic heart failure. She denies history of coronary artery disease or bypass surgery. She follows with Dr. Mcnally. We have been asked to see her in consultation secondary to heart failure. She is seen and examined sitting up in bed receiving a breathing treatment. She denies significant shortness of breath. No chest pain, palpitations, dizziness or nausea/vomiting. Yesterday she had an episode of hypoxia. Underwent VQ scan that was low probability for PE. ABG obtained revealed pH 7.36, pCO2 54, pO2 87 and bicarb of 31. Ammonia level was 50 7 repeat today 40, sodium 144, potassium 3.6, creatinine 1.26 with a GFR 41. Lasix was changed to PO yesterday but changed back to IV per primary team. Currently maintained on amiodarone 100 mg Tuesday, Tuesday and Tuesday, atenolol 12.5 mg daily, Lasix 40 mg IV twice a day and lactulose. Blood pressure 105/52 heart rate 92 maintaining oxygen saturation on nasal cannula. 02/04/2019 Patient seen and examined this morning sitting up in the chair at bedside. Hemodynamically stable. Blood pressure 118/70 with a heart rate in the 90s, 92% on 3 L of oxygen. Sodium 141, potassium 3.7, BUN 41 and creatinine 0.8 today. Continues to be on IV Lasix twice a day. Her weight is down 1 kg today. Repeat chest x-ray from today did show improving changes of pulmonary edema. Objective - Vital Signs Vital signs: Vital Signs Temp 98.4 F 02/04/19 08:00 Pulse 104 H 02/04/19 08:53 Resp 18 02/04/19 08:00 BP 119/70 02/04/19 08:00 Pulse Ox 92 L 02/04/19 08:00 Intake & Output 02/03/19 02/04/19 02/04/19 18:59 06:59 18:59 Intake Total 740 Output Total 1050 800 Balance -310 -800 Weight 65.3 kg Intake: Intake, IV Titration 50 Amount cefTRIAXone 1 gm In 50 Sodium Chloride 0.9% 50 ml @ 100 mls/hr IVPB Q24HR [facility] Rx#:[id number] Oral 690 Output: Urine 1050 800 Other: Voiding Method Indwelling Catheter Indwelling Catheter Indwelling Catheter # Voids 1 # Bowel Movements 1 - Exam GENERAL: This is a 78-year-old female in no apparent distress at the time of my examination. HEENT: Head is atraumatic, normocephalic. Pupils are equal, round. Sclerae anicteric. Conjunctivae are clear. Mucous membranes of the mouth are moist. Neck is supple. There is mild ongoing jugular venous distention. No carotid bruit is heard. LUNGS: Clear to auscultation no wheezes, rales or rhonchi. No chest wall tenderness is noted on palpation or with deep breathing. Diminished bilaterally. HEART: Irregular rate and rhythm with systolic ejection murmur at all listening points, no rubs or gallops. S1 and S2 heard. EXTREMITIES: No evidence of peripheral edema and no calf tenderness noted. - Labs CBC & Chem 7: 02/02/19 15:11 02/04/19 06:17 Labs: Abnormal Lab Results - Last 24 Hours (Table) 02/04/19 Range/Units 06:17 Carbon Dioxide 35 H (22-30) mmol/L BUN 41 H (7-17) mg/dL Assessment and Plan Plan: Assessment and plan #1 Acute on chronic diastolic heart failure and cor pulmonale #2 Acute exacerbation of COPD #3 Hypercapnic respiratory failure #4 Acute T6 and T12 fracture #5 Acute kidney injury #6 Paroxysmal atrial fibrillation not on terminal operations manager anticoagulation #7 Pulmonary hypertension #8 Valvular heart disease, mitral regurgitation and tricuspid regurgitation #9 Hypertension Plan From cardiology's perspective, we will recommend to continue the patient on her current medications. Check lytes BUN and creatinine in the morning. DNP note has been reviewed, I agree with a documented findings and plan of care. Patient was seen and examined.
--- NOTE | 2019-02-04 11:54 | P.PN ---
Subjective 70-year-old female admitted after a mechanical fall also found to have pulmonary edema unfortunately blood pressure is extremely low to do her Lasix today morning she went received IV fluids repeat chest x-ray showing worsening pulmonary edema patient does have elevated JVD patient creatinine did improve with Lasix from 1.7-1.4 patient does have moderate pulmonary hypertension. Baseline creatinine 0.9. Patient although clinically looks better than yesterday 01/30/2019 Patient has minimal or no improvement in her respiratory status patient is mildly negative fluid balance. Nephrology will be consulted. Discussed with the pulmonary. 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 Patient's crackles improved respiratory status improved but still has elevated JVD patient although was switched to oral Lasix and discuss with the per nephrology and probably will switch her to IV Lasix again for 1 more day. Serum creatinine remains stable. 02/01/2019 Patient is still short of breath still has crackles and exam still has elevated JVD may still require Lasix discussed with neurology and the nephrology. Patient remains on IV Lasix at this time. Diuresing well creatinine improved. Patient does have a hepatitis C and chronic liver disease. 02/02/2019 Her overall clinical condition did improve compared to yesterday, serum creatinine improved patient still has significant crackles and significantly elevated JVD continue with the Lasix patient had an ultrasound of the abdomen which was suspicious for a complex cyst in the pancreas or the CAT scan did not show any evidence of pancreatic mass. Patient appears to be constipated will start her on bowel regimen 02/03/2019 Patient is a bit drowsy because she received morphine although her overall clinical condition improved and patient still has minimal crackles elevated JVD will remain on IV Lasix nephrology valid the patient discussed with nephrology. 02/04/2019 Patient continued to improve patient is presently on 3 L of oxygen as opposed to 4 L S today. Patient is much better. Patient constipation improved. Patient chest x-ray showed improvement in pulmonary edema continue with IV Lasix Constitutional: Denied any fatigue denied any fever. Cardio vascular: denied any chest pain, palpitations Gastrointestinal denied any nausea vomiting Pulmonary: Continues to have shortness of breath Neurologic denied any new focal deficits All inpatient medications were reviewed and appropriate changes in these medications as dictated in the interval history and assessment and plan. Objective - Vital Signs Vital signs: Vital Signs Temp 98.4 F 02/04/19 08:00 Pulse 104 H 02/04/19 08:53 Resp 18 02/04/19 08:00 BP 119/70 02/04/19 08:00 Pulse Ox 92 L 02/04/19 08:00 Intake & Output 02/03/19 02/04/19 02/04/19 18:59 06:59 18:59 Intake Total 740 Output Total 1050 800 Balance -310 -800 Weight 65.3 kg Intake: Intake, IV Titration 50 Amount cefTRIAXone 1 gm In 50 Sodium Chloride 0.9% 50 ml @ 100 mls/hr IVPB Q24HR [facility] Rx#:[id number] Oral 690 Output: Urine 1050 800 Other: Voiding Method Indwelling Catheter Indwelling Catheter Indwelling Catheter # Voids 1 # Bowel Movements 1 - Exam PHYSICAL EXAMINATION: GENERAL: The patient is alert and oriented x3, not in any acute distress. Elderly female HEENT: Pupils are round and equally reacting to light. EOMI. she does have scleral icterus. No conjunctival pallor. Normocephalic, atraumatic. No pharyngeal erythema. No thyromegaly. CARDIOVASCULAR: S1 and S2 present. No murmurs, rubs, or gallops. Patient does have elevated JVD PULMONARY: Crackles improved significantly mostly in the bases now ABDOMEN: Soft, nontender, nondistended, normoactive bowel sounds. No palpable organomegaly. MUSCULOSKELETAL: No joint swelling or deformity. EXTREMITIES: No cyanosis, clubbing, mild pitting pedal edema NEUROLOGICAL: Gross neurological examination did not reveal any focal deficits. SKIN: No rashes. - Labs CBC & Chem 7: 02/02/19 15:11 02/04/19 06:17 Labs: Abnormal Lab Results - Last 24 Hours (Table) 02/04/19 Range/Units 06:17 Carbon Dioxide 35 H (22-30) mmol/L BUN 41 H (7-17) mg/dL Assessment and Plan Plan: -Mechanical fall and a T12 compression fracture TLSO brace along with the [facility] therapy occupational therapy discharged to subacute rehabilitation -Acute hypoxic respiratory failure secondary to Congestive heart failure chronic diastolic dysfunction with acute exacerbation patient blood pressure is already low close clinical monitoring IV Lasix still volume overloaded -thalassemia minor -Hepatitis C and chronic liver disease and cirrhosis from that -Possible asymptomatic bacteriuria: Was started on antibiotics thinking she has urinary tract infection , antibiotics were discontinued -Hyperammoniemia secondary to possible liver dysfunction patient will receiving lactulose, improved now Atrial fibrillation: Presently rate controlled continue with the rate control me dications patient is not on any anti-coagulation because of her GI bleed in the past -Acute renal failure: Prerenal azotemia secondary to heart failure exacerbation patient creatinine improved now -Gastroesophageal reflux disease -Osteoarthritis Patient will need pharmacologic GI and DVT prophylaxis
--- NOTE | 2019-02-04 13:41 | P.PN ---
Subjective Progress Note Date: 02/04/19 CHIEF COMPLAINT: Abdominal pain HISTORY OF PRESENT ILLNESS: The patient is a 78-year-old female who presents with severe constipation including diverticulosis. She has history of a fall including atrial fibrillation. She reports bowel movements. She is responded well to adjustment of her bowel regimen. ROS: No reports of nausea and vomiting. No fevers or chills. No chest pain. PHYSICAL EXAM: VITAL SIGNS: Reviewed CONSTITUTIONAL: Well developed and in no acute distress. EYES: Conjuctivae without sclera icterus. Extraocular movements grossly intact. HEAD, EARS, NOSE, THROAT: Moist buccal mucosa. Head is atraumatic, normocephalic. Hears conversational speech. No nasal drainage. NECK: Supple. No thyroidomegaly. RESPIRATORY: Non-labored respirations and equal bilateral excursions. CARDIOVASCULAR: Palpable 2+ radial pulses. Irregular rate. Irregular rhythm. ABDOMEN: Soft. Minimal distention. Nontender. MUSCULOSKELETAL: No gross deformity of the lower extremities noted. No clubbing. No cyanosis. SKIN: Good skin turgor. Well perfused. NEUROLOGIC: Cranial nerves I through XII grossly intact. No focal or lateralizing signs. PSYCH: Alert and oriented to person CLINCAL LABS: White blood cell count normal. Anemia with low MCV and MCH suspicious for iron deficiency anemia ASSESSMENT: 1. Abdominal distention with severe constipation 2. Status post fall with congestive heart failure vertebral fracture, thoracic PLAN: 1. She has responded well to bowel regimen. Please continue during the hospitalization. 2. No additional surgical intervention described. Objective - Vital Signs Vital signs: Vital Signs Temp 98.1 F 02/04/19 12:00 Pulse 97 02/04/19 12:00 Resp 18 02/04/19 12:00 BP 112/60 02/04/19 12:00 Pulse Ox 96 02/04/19 12:00 Intake & Output 02/03/19 02/04/19 02/04/19 18:59 06:59 18:59 Intake Total 740 10 Output Total 1050 800 Balance -310 -800 10 Weight 65.3 kg Intake: IV 10 .9 10 Intake, IV Titration 50 Amount cefTRIAXone 1 gm In 50 Sodium Chloride 0.9% 50 ml @ 100 mls/hr IVPB Q24HR [facility] Rx#:[id number] Oral 690 Output: Urine 1050 800 Other: Voiding Method Indwelling Catheter Indwelling Catheter Indwelling Catheter # Voids 1 # Bowel Movements 1 - Labs CBC & Chem 7: 02/02/19 15:11 02/04/19 06:17 Labs: Abnormal Lab Results - Last 24 Hours (Table) 02/04/19 Range/Units 06:17 Carbon Dioxide 35 H (22-30) mmol/L BUN 41 H (7-17) mg/dL
--- NOTE | 2019-02-04 14:19 | P.PN ---
Subjective Progress Note Date: 02/04/19 02/04/2019: Patient seen and examined. Patient is resting in bed on 3 L nasal cannula. She states she feels fine. She has no needs or complaints. She is trying to take a nap. The patient states that she would like to wear her CPAP from a nap. CPAP was placed on the patient. Objective - Vital Signs Vital signs: Vital Signs Temp 98.1 F 02/04/19 12:00 Pulse 97 02/04/19 12:00 Resp 18 02/04/19 12:00 BP 112/60 02/04/19 12:00 Pulse Ox 96 02/04/19 12:00 Intake & Output 02/03/19 02/04/19 02/04/19 18:59 06:59 18:59 Intake Total 740 10 Output Total 1050 800 Balance -310 -800 10 Weight 65.3 kg Intake: IV 10 .9 10 Intake, IV Titration 50 Amount cefTRIAXone 1 gm In 50 Sodium Chloride 0.9% 50 ml @ 100 mls/hr IVPB Q24HR [facility] Rx#:[id number] Oral 690 Output: Urine 1050 800 Other: Voiding Method Indwelling Catheter Indwelling Catheter Indwelling Catheter # Voids 1 # Bowel Movements 1 1 - Exam Gen.: Patient is alert and oriented 3, much more alert today CV: IRRR, s1/s2, rate controlled, + murmur Lungs: diminished breath sounds bilaterally Abd: soft, NT/ND, +BS Ext: 2+ edema - Labs CBC & Chem 7: 02/02/19 15:11 02/04/19 06:17 Labs: Abnormal Lab Results - Last 24 Hours (Table) 02/04/19 Range/Units 06:17 Carbon Dioxide 35 H (22-30) mmol/L BUN 41 H (7-17) mg/dL Assessment and Plan Assessment: Acute on chronic hypoxic and hypercapnic respiratory failure Severe pulmonary hypertension, RVSP 71 mmHg Acute exacerbation of moderate COPD, FEV1 68% of predicted Status post fall with T12 compression fracture GALDINO on CPAP at 9 cmH2O Acute exacerbation of diastolic congestive heart failure Valvular heart disease - severe mitral regurgitation, severe tricuspid regurgitation Remote history of DVT UTI Hyperbilirubinemia of unclear etiology Thalassemia minor, chronic anemia at baseline, microcytic Mild thrombocytopenia Hypertension Osteoarthritis Acute kidney injury, cardiorenal syndrome O2 to maintain saturation greater than or equal to 90%, on 3L NC Pulmicort Duo nebs CPAP at 9 cmH2O nightly and with naps Incentive spirometry and pulmonary hygiene Antibiotics GI and DVT prophylaxis Continue Revatio for PH, patient should follow up with Dr. Gonzalez Monitor renal function closely Gentle diuresis, I/O, daily weight Cardiology recommendations Pain control Prognosis is poor
[2019-02-04] MEDS: SERTRALINE 100 MG TAB PO SCH (19:57)
[2019-02-05] MEDS: traMADol 50 MG TAB PO PRN (03:36)
[2019-02-05 06:46] LABS: Anisocytosis Moderate; HCT 39.3 % (34.0-46.0); HGB 11.3 gm/dL (11.4-16.0); Hypochromasia Marked; MCH 21.6 pg (25.0-35.0); MCHC 28.7 g/dL (31.0-37.0); MCV 75.4 fL (80.0-100.0); Mean Platelet Volume 7.2; Microcytosis Moderate; Platelet Count 110 k/uL (150-450); Poikilocytosis Moderate; RBC 5.22 m/uL (3.80-5.40); RDW 20.1 % (11.5-15.5)
[2019-02-05 06:56] LABS: Calcium 9.3 mg/dL (8.4-10.2); Potassium 4.4 mmol/L (3.5-5.1)
[2019-02-05] MEDS: IPRATROPIUM-ALBUTEROL 3 ML NEB INHALATION SCH ×2 (08:23→12:21)
[2019-02-05] MEDS: BUDESONIDE 0.5 MG/2 ML NEBU INHALATION SCH (08:23)
[2019-02-05 09:13] LABS: Eosinophils # (M) 0.19 k/uL (0-0.7); Lymphocytes # (M) 0.37 k/uL (1.0-4.8); Monocytes # (M) 0.56 k/uL (0-1.0); Neutrophils # (M) 5.15 k/uL (1.3-7.7); Neutrophils % (M) 83 %; Nucleated Red Blood Cells 27 /100 WBC (0-0); Total Cells Counted 200; WBC 6.2 k/uL (3.8-10.6)
[2019-02-05 09:14] LABS: Target Cells Present
[2019-02-05 09:15] LABS: Howell-Jolly Bodies Present; Polychromasia Present
[2019-02-05 09:16] LABS: Basophilic Stippling Present; RBC Fragments Present
[2019-02-05] MEDS ORDERED: METOPROLOL TARTRATE 25 MG TAB PO STA (09:52)
--- NOTE | 2019-02-05 09:56 | P.PN ---
Subjective Patient is seen in follow-up for acute kidney injury. Renal function improved. Creatinine 0.89 today. Edema has improved. Denies chest pain. Dyspnea better. Currently maintained on IV Lasix 40 mg twice daily. She has been ambulating. Overall feeling better. Vital signs are stable. General: The patient appeared well nourished and normally developed. HEENT: Head exam is unremarkable. Neck is without jugular venous distension. LUNGS: Breath sounds decreased. HEART: Rate and Rhythm are regular. First and second heart sounds normal. No m urmurs, rubs or gallops. ABDOMEN: Abdominal exam reveals normal bowel sounds. Non-tender and non-di stended. No evidence of peritonitis. EXTREMITITES: No clubbing, cyanosis, or edema. Objective - Vital Signs Vital signs: Vital Signs Temp 98.0 F 02/05/19 08:00 Pulse 92 02/05/19 08:36 Resp 18 02/05/19 08:00 BP 108/58 02/05/19 08:00 Pulse Ox 95 02/05/19 08:00 Intake & Output 02/04/19 02/05/19 02/05/19 18:59 06:59 18:59 Intake Total 670 600 400 Output Total 475 Balance 670 125 400 Weight 66.7 kg Intake: IV 20 .9 20 Oral 650 600 400 Output: Urine 475 Other: Voiding Method Indwelling Catheter Indwelling Catheter Toilet # Voids 1 # Bowel Movements 1 - Labs CBC & Chem 7: 02/05/19 05:44 02/05/19 05:44 Labs: Abnormal Lab Results - Last 24 Hours (Table) 02/05/19 02/05/19 Range/Units 05:44 05:44 Hgb 11.3 L (11.4-16.0) gm/dL MCV 75.4 L (80.0-100.0) fL MCH 21.6 L (25.0-35.0) pg MCHC 28.7 L (31.0-37.0) g/dL RDW 20.1 H (11.5-15.5) % Plt Count 110 L (150-450) k/uL Lymphocytes # (Manual) 0.37 L (1.0-4.8) k/uL Nucleated RBCs 27 H (0-0) /100 WBC Carbon Dioxide 33 H (22-30) mmol/L BUN 41 H (7-17) mg/dL Assessment and Plan Plan: Assessment: 1. Acute kidney injury mostly prerenal secondary to cardiorenal syndrome. Renal function improved. Creatinine 0.89 today. No evidence of CKD at this time but will need to monitor outpatient. No hydronephrosis noted on renal ultrasound. 2. Dyspnea secondary to volume overload. Better. Low probability of PE on VQ scan. No evidence of DVT. 3. Diastolic CHF with moderate to severe mitral regurgitation, severe tricuspid regurgitation, moderate to severe pulmonary hypertension. 4. Status post fall. 5. Subcutaneous edema around the abdomen noted on CT of the abdomen and pelvis done February 01. 6. Mild hyperkalemia secondary to diuresis. Better. Plan: Continue with Lasix 40 mg IV twice daily. Can be transitioned over to oral diuretics upon discharge. Repeat electrolytes in the morning. Encouraged oral intake.
--- NOTE | 2019-02-05 10:01 | P.DS ---
Providers Date of admission: 01/28/19 08:26 Attending physician: Raisa Overton Consults: 01/28/19 08:25 Consult Physician Routine Consulting Provider: Shreya Cordova Consult Reason/Comments: t12 fx Do you want consulting provider notified?: Yes 01/28/19 14:54 Consult Physician Routine Consulting Provider: Connor Rader Consult Reason/Comments: CHF Do you want consulting provider notified?: Yes 01/30/19 13:23 Consult Physician Routine Consulting Provider: David Milton Consult Reason/Comments: ADILIA, CHF Do you want consulting provider notified?: Yes 01/30/19 16:19 Consult Physician Routine Consulting Provider: Ranulfo Stanley Consult Reason/Comments: pulmonary Hypertension Do you want consulting provider notified?: Already Contacted 02/01/19 21:23 Consult Physician Urgent Consulting Provider: Martin Mendez Consult Reason/Comments: abdominal pain Do you want consulting provider notified?: Yes 02/03/19 18:05 Consult Physician Routine Consulting Provider: Sunshine Webber Consult Reason/Comments: afib RVR/ replacing on list Do you want consulting provider notified?: Already Contacted Primary care physician: Donovan Calles Hospital Course: 70-year-old female admitted after a mechanical fall also found to have pulmonary edema unfortunately blood pressure is extremely low to do her Lasix today morning she went received IV fluids repeat chest x-ray showing worsening pulmonary edema patient does have elevated JVD patient creatinine did improve with Lasix from 1.7-1.4 patient does have moderate pulmonary hypertension. Baseline creatinine 0.9. Patient although clinically looks better than yesterday 01/30/2019 Patient has minimal or no improvement in her respiratory status patient is mildly negative fluid balance. Nephrology will be consulted. Discussed with the pulmonary. 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 Patient's crackles improved respiratory status improved but still has elevated JVD patient although was switched to oral Lasix and discuss with the per nephrology and probably will switch her to IV Lasix again for 1 more day. Serum creatinine remains stable. 02/01/2019 Patient is still short of breath still has crackles and exam still has elevated JVD may still require Lasix discussed with neurology and the nephrology. Patient remains on IV Lasix at this time. Diuresing well creatinine improved. Patient does have a hepatitis C and chronic liver disease. 02/02/2019 Her overall clinical condition did improve compared to yesterday, serum creatinine improved patient still has significant crackles and significantly elevated JVD continue with the Lasix patient had an ultrasound of the abdomen which was suspicious for a complex cyst in the pancreas or the CAT scan did not show any evidence of pancreatic mass. Patient appears to be constipated will start her on bowel regimen 02/03/2019 Patient is a bit drowsy because she received morphine although her overall clinical condition improved and patient still has minimal crackles elevated JVD will remain on IV Lasix nephrology valid the patient discussed with nephrology. 02/04/2019 Patient continued to improve patient is presently on 3 L of oxygen as opposed to 4 L S today. Patient is much better. Patient constipation improved. Patient chest x-ray showed improvement in pulmonary edema continue with IV Lasix 02/05/2019 Patient is feeling much better today patient to reduce of Parkinson's and saturating 93% still has some bibasilar crackles appear to be chronic patient's overall prognosis is poor because of severe pulmonary hypertension. Patient will be discharged today to subacute rehabilitation. Patient was discharged on 40 twice a day of Lasix. PHYSICAL EXAMINATION: GENERAL: The patient is alert and oriented x3, not in any acute distress. Elderly female HEENT: Pupils are round and equally reacting to light. EOMI. she does have scleral icterus. No conjunctival pallor. Normocephalic, atraumatic. No pharyngeal erythema. No thyromegaly. CARDIOVASCULAR: S1 and S2 present. No murmurs, rubs, or gallops. PULMONARY: Still has bibasilar crackles ABDOMEN: Soft, nontender, nondistended, normoactive bowel sounds. No palpable organomegaly. MUSCULOSKELETAL: No joint swelling or deformity. EXTREMITIES: No cyanosis, clubbing, mild pitting pedal edema NEUROLOGICAL: Gross neurological examination did not reveal any focal deficits. SKIN: No rashes. Assessment and Plan Plan: -Mechanical fall and a T12 compression fracture TLSO brace along with the physical therapy occupational therapy discharged to subacute rehabilitation -Acute hypoxic respiratory failure secondary to Congestive heart failure chronic diastolic dysfunction with acute exacerbation significantly improved will be discharged to subacute rehabilitation today -thalassemia minor -Hepatitis C and chronic liver disease and cirrhosis from that -Possible asymptomatic bacteriuria: Was started on antibiotics thinking she has urinary tract infection , antibiotics were discontinued -Hyperammoniemia secondary to possible liver dysfunction patient will receiving lactulose, improved now Atrial fibrillation: Presently rate controlled continue with the rate control me dications patient is not on any anti-coagulation because of her GI bleed in the past -Acute renal failure: Prerenal azotemia secondary to heart failure exacerbation patient creatinine improved now -Gastroesophageal reflux disease -Osteoarthritis Plan - Discharge Summary Discharge Rx Participant: No New Discharge Prescriptions: New Lactulose [Cephulac] 20 gm PO TID #30 ml Amiodarone [Cordarone] 100 mg PO MOWEFR tab Ipratropium-Albuterol Nebulize [Duoneb 0.5 mg-3 mg/3 ml Soln] 3 ml INHALATION RT-TID PRN ampul.neb PRN Reason: Wheezing Metoprolol Tartrate [Lopressor] 50 mg PO BID #10 tab Famotidine [Pepcid] 20 mg PO DAILY tab Budesonide [Pulmicort] 0.5 mg INHALATION RT-BID nebu traMADol HCL [Ultram] 50 mg PO Q4HR PRN 3 Days #18 tab PRN Reason: Pain Continue ALPRAZolam [Xanax] 0.5 mg PO DAILY PRN PRN Reason: Anxiety Spironolactone [Aldactone] 12.5 mg PO DAILY Ondansetron HCl [Zofran] 8 mg PO Q8HR PRN PRN Reason: Nausea Sertraline HCl [Zoloft] 100 mg PO HS Folic Acid 1 mg PO DAILY Allopurinol [Zyloprim] 100 mg PO DAILY Changed Furosemide [Lasix] 40 mg PO BID #0 Discontinued Potassium Chloride [K-Tab ER] 10 meq PO BID Amiodarone [Cordarone] 100 mg PO MOWEFR Sildenafil Citrate [Sildenafil] 20 mg PO BID Atenolol [Tenormin] 50 mg PO DAILY Discharge Medication List ALPRAZolam [Xanax] 0.5 mg PO DAILY PRN 06/28/17 [History] Ondansetron HCl [Zofran] 8 mg PO Q8HR PRN 06/28/17 [History] Spironolactone [Aldactone] 12.5 mg PO DAILY 06/28/17 [History] Sertraline HCl [Zoloft] 100 mg PO HS 06/29/17 [History] Allopurinol [Zyloprim] 100 mg PO DAILY 01/28/19 [History] Folic Acid 1 mg PO DAILY 01/28/19 [History] Amiodarone [Cordarone] 100 mg PO MOWEFR tab 02/05/19 [Rx] Budesonide [Pulmicort] 0.5 mg INHALATION RT-BID nebu 02/05/19 [Rx] Famotidine [Pepcid] 20 mg PO DAILY tab 02/05/19 [Rx] Furosemide [Lasix] 40 mg PO BID #0 02/05/19 [Rx] Ipratropium-Albuterol Nebulize [Duoneb 0.5 mg-3 mg/3 ml Soln] 3 ml INHALATION RT-TID PRN ampul.neb 02/05/19 [Rx] Lactulose [Cephulac] 20 gm PO TID #30 ml 02/05/19 [Rx] Metoprolol Tartrate [Lopressor] 50 mg PO BID #10 tab 02/05/19 [Rx] traMADol HCL [Ultram] 50 mg PO Q4HR PRN 3 Days #18 tab 02/05/19 [Rx] Follow up Appointment(s)/Referral(s): Estiven Nye MD [STAFF PHYSICIAN] - 1 Week Ezekiel Dorantes PAC [PHYSICIAN ASSISTANT HOUSEKEEPING MANAGER] - 2 Weeks (Patient may follow-up with Ezekiel Dorantes PA-C or Dr. Gabriel Cordova at [facility] in 2-3 weeks following discharge. ) Donovan Calles MD [Primary Care Provider] - 1-2 days Riaz Tejada [NON-STAFF] - 1-2 Days (to deliver to room brace. phone [phone]. ) Activity/Diet/Wound Care/Special Instructions: 1. Patient may wear Spinomed TLSO brace for comfort and support while sitting upright at greater than 45, while working with therapy, and while ambulating; patient does not have to wear the brace while lying in bed or bathing 2. Patient should avoid excessive bending, twisting, and lifting; no lifting greater than 10 pounds Basic metabolic profile in 3 days
[2019-02-05] MEDS: FAMOTIDINE 20 MG TAB PO SCH (10:52)
[2019-02-05] MEDS: FUROSEMIDE 10 MG/ML 4 ML VIAL IV SCH (10:52)
[2019-02-05] MEDS: LACTULOSE 20 GM/30 ML CUP PO SCH ×2 (10:52→16:06)
[2019-02-05] MEDS: DOCUSATE 100 MG CAP PO SCH (10:52)
[2019-02-05] MEDS: MAGNESIUM HYDROXIDE 2,400 MG/10 ML CUP PO SCH (10:52)
[2019-02-05] MEDS: ALLOPURINOL 100 MG TAB PO SCH (10:52)
[2019-02-05] MEDS: HEPARIN SODIUM,PORCINE 5,000 UNIT/ML 1 ML VIAL SQ SCH (10:53)
[2019-02-05] MEDS: AMIODARONE 100 MG TAB PO SCH ×2 (11:02→11:13)
[2019-02-05] MEDS: ATENOLOL 12.5 MG TAB PO SCH (11:13)
--- NOTE | 2019-02-05 13:08 | P.PN ---
Subjective Progress Note Date: 02/05/19 This is a pleasant 78-year-old female past medical history significant for paroxysmal atrial fibrillation, hypertension, pulmonary hypertension and chronic diastolic heart failure. She denies history of coronary artery disease or bypass surgery. She follows with Dr. Mcnally. We have been asked to see her in consultation secondary to heart failure. She is seen and examined sitting up in bed receiving a breathing treatment. She denies significant shortness of breath. No chest pain, palpitations, dizziness or nausea/vomiting. Yesterday she had an episode of hypoxia. Underwent VQ scan that was low probability for PE. ABG obtained revealed pH 7.36, pCO2 54, pO2 87 and bicarb of 31. Ammonia level was 50 7 repeat today 40, sodium 144, potassium 3.6, creatinine 1.26 with a GFR 41. Lasix was changed to PO yesterday but changed back to IV per primary team. Currently maintained on amiodarone 100 mg Tuesday, Tuesday and Tuesday, atenolol 12.5 mg daily, Lasix 40 mg IV twice a day and lactulose. Blood pressure 105/52 heart rate 92 maintaining oxygen saturation on nasal cannula. 02/04/2019 Patient seen and examined this morning sitting up in the chair at bedside. Hemodynamically stable. Blood pressure 118/70 with a heart rate in the 90s, 92% on 3 L of oxygen. Sodium 141, potassium 3.7, BUN 41 and creatinine 0.8 today. Continues to be on IV Lasix twice a day. Her weight is down 1 kg today. Repeat chest x-ray from today did show improving changes of pulmonary edema. 02/05/2019 Patient was seen and examined this morning, overall doing well. Ambulated in the hallway today with physical therapy and tolerated it quite well. Blood pressure 115/50 with a heart rate of 90, 93% on 2 L of oxygen. We'll discontinue the IV Lasix and change patient over to oral diuretics today. Objective - Vital Signs Vital signs: Vital Signs Temp 97.2 F L 02/05/19 12:00 Pulse 110 H 02/05/19 12:00 Resp 18 02/05/19 12:00 BP 115/56 02/05/19 12:00 Pulse Ox 93 L 02/05/19 12:00 Intake & Output 02/04/19 02/05/19 02/05/19 18:59 06:59 18:59 Intake Total 670 600 400 Output Total 475 1 Balance 670 125 399 Weight 66.7 kg Intake: IV 20 .9 20 Oral 650 600 400 Output: Urine 475 Stool 1 Other: Voiding Method Indwelling Catheter Indwelling Catheter Toilet # Voids 1 # Bowel Movements 1 - Exam GENERAL: This is a 78-year-old female in no apparent distress at the time of my examination. HEENT: Head is atraumatic, normocephalic. Pupils are equal, round. Sclerae anicteric. Conjunctivae are clear. Mucous membranes of the mouth are moist. Neck is supple. There is mild ongoing jugular venous distention. No carotid bruit is heard. LUNGS: Clear to auscultation no wheezes, rales or rhonchi. No chest wall tenderness is noted on palpation or with deep breathing. Diminished bilaterally. HEART: Irregular rate and rhythm with systolic ejection murmur at all listening points, no rubs or gallops. S1 and S2 heard. EXTREMITIES: No evidence of peripheral edema and no calf tenderness noted. - Labs CBC & Chem 7: 02/05/19 05:44 02/05/19 05:44 Labs: Abnormal Lab Results - Last 24 Hours (Table) 02/05/19 02/05/19 Range/Units 05:44 05:44 Hgb 11.3 L (11.4-16.0) gm/dL MCV 75.4 L (80.0-100.0) fL MCH 21.6 L (25.0-35.0) pg MCHC 28.7 L (31.0-37.0) g/dL RDW 20.1 H (11.5-15.5) % Plt Count 110 L (150-450) k/uL Lymphocytes # (Manual) 0.37 L (1.0-4.8) k/uL Nucleated RBCs 27 H (0-0) /100 WBC Carbon Dioxide 33 H (22-30) mmol/L BUN 41 H (7-17) mg/dL Assessment and Plan Plan: Assessment and plan #1 Acute on chronic diastolic heart failure and cor pulmonale #2 Acute exacerbation of COPD #3 Hypercapnic respiratory failure #4 Acute T6 and T12 fracture #5 Acute kidney injury #6 Paroxysmal atrial fibrillation 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 She may be discharged or transferred to ECF once cleared by primary. DNP note has been reviewed, I agree with a documented findings and plan of care. Patient was seen and examined.
[2019-02-05] MEDS ORDERED: FUROSEMIDE 20 MG TAB PO SCH (16:00)
[2019-02-05 17:13] VITALS: BP 106/59; TEMP 96.5
[2019-02-05 17:17] VITALS: PULSE 83
== END 2019-02-05 18:06 | disposition swing bed (61) | DRG 291 ==
LOC: EC 07:02 → 3NMEDONC 08:26 → 3SCARD 02-02 00:06
PROVIDERS: ADMIT Internal Medicine; ATTEND Internal Medicine
DX: I11.0 Hypertensive heart disease with heart failure (principal); J96.21 Acute and chronic respiratory failure with hypoxia; J96.22 Acute and chronic respiratory failure with hypercapnia; S22.050A Wedge compression fracture of T5-T6 vertebra, initial encounter for closed fracture; S22.080A Wedge compression fracture of T11-T12 vertebra, initial encounter for closed fracture; N17.9 Acute kidney failure, unspecified; J44.1 Chronic obstructive pulmonary disease with (acute) exacerbation; K76.6 Portal hypertension; I50.33 Acute on chronic diastolic (congestive) heart failure; I95.9 Hypotension, unspecified; I27.29 Other secondary pulmonary hypertension; I08.1 Rheumatic disorders of both mitral and tricuspid valves; I48.0 Paroxysmal atrial fibrillation; R82.71 Bacteriuria; K74.60 Unspecified cirrhosis of liver; M51.36 Other intervertebral disc degeneration, lumbar region; M51.37 Other intervertebral disc degeneration, lumbosacral region; M16.0 Bilateral primary osteoarthritis of hip; G47.33 Obstructive sleep apnea (adult) (pediatric); E87.6 Hypokalemia; T50.2X5A Adverse effect of carbonic-anhydrase inhibitors, benzothiadiazides and other diuretics, initial encounter; D56.3 Thalassemia minor; K21.9 Gastro-esophageal reflux disease without esophagitis; F32.9 Major depressive disorder, single episode, unspecified; K59.00 Constipation, unspecified; K57.90 Diverticulosis of intestine, part unspecified, without perforation or abscess without bleeding; I83.90 Asymptomatic varicose veins of unspecified lower extremity; H91.90 Unspecified hearing loss, unspecified ear; Z79.899 Other long term (current) drug therapy; Z86.19 Personal history of other infectious and parasitic diseases; Z90.710 Acquired absence of both cervix and uterus; Z86.718 Personal history of other venous thrombosis and embolism; Z90.49 Acquired absence of other specified parts of digestive tract; Z90.81 Acquired absence of spleen; Z87.19 Personal history of other diseases of the digestive system; Z96.653 Presence of artificial knee joint, bilateral; Z98.42 Cataract extraction status, left eye; Z98.41 Cataract extraction status, right eye; Z99.89 Dependence on other enabling machines and devices; Z91.041 Radiographic dye allergy status; W18.30XA Fall on same level, unspecified, initial encounter; Y92.009 Unspecified place in unspecified non-institutional (private) residence as the place of occurrence of the external cause; Z80.0 Family history of malignant neoplasm of digestive organs; Z81.1 Family history of alcohol abuse and dependence
CPT/HCPCS: 36600; 71045; 71046; 72100; 74176; 76705; 76770; 78582; 80048; 80053; 81001; 82140; 82247; 82550; 82607; 82728; 82746; 82805; 83540; 83550; 83735; 83880; 85025; 85027; 85610; 93306; 93970; 94640; 94660; 94760; 99284